=== PATIENT | female | born 1970 | race Caucasian/White ===

== ENCOUNTER 2018-05-31 12:04 | Emergency (ER) | payer OTHER, MEDICAID, SELFPAY ==
[2018-05-31 12:21] VITALS: BP 162/100; PULSE 83; RESP 13; TEMP 36.4; O2SAT 98
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
[2018-05-31] MEDS: hydrOXYzine 50 MG/ML INJ 25 MG IM (13:25)
[2018-05-31] MEDS: diazePAM 10 MG/2 ML SYRINGE 5 MG IM (13:25)
== END 2018-05-31 15:07 | disposition home or self-care (01) ==
PROVIDERS: Emergency Provider Internal Medicine; PCP Family Medicine
DX: F41.0 Panic disorder [episodic paroxysmal anxiety] (principal)
CPT/HCPCS: 96372; 99282; 99283; J3360; J3410

== ENCOUNTER → 2018-06-20 10:00 | Outpatient (CLI) | payer OTHER, MEDICAID, SELFPAY ==
[2018-06-20 10:06] LABS: RBC Urine None Seen (0-5/HPF)
[2018-06-20 11:04] LABS: Alanine Aminotransferase 41 IU/L (9-52); Albumin 4.3 g/dL (3.5-5.0); Albumin Globulin Ratio 1.3 (1.0-2.8); Alkaline Phosphatase 96 U/L (38-126); Aspartate Aminotransferase 27 IU/L (14-36); BUN Creatinine Ratio 26.7 (6-22); Bilirubin Total 0.5 mg/dL (0.2-1.3); Blood Urea Nitrogen 16 mg/dL (7-17); Calcium 9.8 mg/dL (8.4-10.2); Carbon Dioxide 28 mmol/L (22-32); Chloride 101 mmol/L (98-107); Cholesterol 168 mg/dL (140-199); Estimated Glomerular Filt Rate > 60.0 mL/min (>60); Globulin 3.3 g/dL (1.7-4.1); Glucose 176 mg/dL (70-100); HDL Cholesterol 32 mg/dL (40-60); HEMOLYSIS < 15 (0-50); LDL Cholesterol Calculated 95 mg/dL (<100); Potassium 4.1 mmol/L (3.4-5.1); Sodium 138 mmol/L (137-145); Total Protein 7.6 g/dL (6.3-8.2); Triglycerides 207 mg/dL (35-150)
[2018-06-20 11:21] LABS: Hematocrit 42.4 % (36-46); Hemoglobin 14.5 g/dL (12.0-16.0); Mean Corpuscular HGB Conc 34.1 % (30-36); Mean Corpuscular Hemoglobin 30.3 PG (26-34); Mean Corpuscular Volume 88.7 fL (80-100); Platelet Count 235 X10^3/uL (150-400); Red Blood Cell Count 4.78 X10^6/uL (4.0-5.2); Red Cell Distribution Width 12.8 % (11.6-14.8); White Blood Cell Count 8.3 X10^3/uL (4.5-11.0)
[2018-06-20 11:30] LABS: Appearance Urine UA CLEAR; Bilirubin Urine UA NEGATIVE (NEGATIVE); Color Urine UA YELLOW; Glucose Urine UA 1+ g/dL (Normal); Ketones Urine UA NEGATIVE (NEGATIVE); Leukocyte Esterase Urine UA NEGATIVE (NEGATIVE); Nitrite Urine UA Negative (Negative); Occult Blood Urine UA NEGATIVE (Negative); Protein Urine UA NEGATIVE (Negative); Urobilinogen Urine UA 0.2 E.U./dL (0.2)
[2018-06-20 11:31] LABS: TSH w/ Reflex to FT4 1.76 uIU/mL (0.47-4.68)
[2018-06-20 11:39] LABS: Hemoglobin A1C% w Est Avg Glu 9.8 % (4.0-6.0)
[2018-06-20 11:43] LABS: Bacteria Urine Moderate (10-30); Creatinine Urine Random 55.1 mg/dL; Squamous Epithelial Cell Urine 5-10 /HPF; WBC Urine 0-1/HPF (0-5/HPF)
[2018-06-20 11:49] LABS: Microalbumi Creatinin Ratio Ur 10.8 ug/mg CR (<30); Microalbumin Urine Random < 0.6 mg/dL (0-1.6)
[2018-06-20 11:57] LABS: Anisocytosis 1+; Neutrophils Absolute Manual 2075 /uL (3000-5900); Total Cells Counted 100
[2018-06-20 11:58] LABS: Hypochromasia 1+
== END ==
PROVIDERS: PCP Family Medicine; Visit Provider Nurse Practitioner Family
DX: E11.65 Type 2 diabetes mellitus with hyperglycemia (principal); E04.9 Nontoxic goiter, unspecified
CPT/HCPCS: 36415; 80053; 80061; 81001; 82043; 82570; 83036; 84443; 85025

== ENCOUNTER → 2018-11-25 15:06 | Outpatient (CLI) | payer OTHER, MEDICAID, SELFPAY ==
[2018-11-25 16:05] LABS: Hemoglobin A1C% w Est Avg Glu 11.4 % (4.0-6.0)
[2018-11-25 17:16] LABS: Blood Urea Nitrogen 25 mg/dL (7-17); Calcium 9.7 mg/dL (8.4-10.2); Carbon Dioxide 25 mmol/L (22-32); Chloride 99 mmol/L (98-107); Estimated Glomerular Filt Rate 59.7 mL/min (>60); Glucose 295 mg/dL (70-100); HEMOLYSIS < 15 (0-50); Potassium 4.7 mmol/L (3.4-5.1); Sodium 138 mmol/L (137-145)
== END ==
PROVIDERS: PCP Family Medicine; Visit Provider Family Medicine
DX: E11.65 Type 2 diabetes mellitus with hyperglycemia (principal); I10 Essential (primary) hypertension
CPT/HCPCS: 36415; 80048; 83036

== ENCOUNTER → 2018-12-27 13:20 | Outpatient (CLI) | payer OTHER, MEDICAID, SELFPAY ==
--- NOTE | 2018-12-27 14:56 | DIET.PN ---
DIABETES Nutrition Initial Assessment:? ASSESS:???48 yof? referred for type 2 diabetes. Pt with long standing history of diabetes (Nov). States she was given some diabetes education at that time, but her hemoglobin a1c and blood glucose readings have continued to climb steadily. Reports checking pre-prandial glucose 3x/day. Was recently put on SS humalog after discontinuing glipizide. She does not count or adjust mealtime insulin to reflect dietary intake, rather adjust insulin based on pre-prandial BG reading. Admits to eating large portions of dairy, fruit, and bread. She lives in a house of 8 where she cares for her father, boyfriend, 4 children, and 2 grandchildren. Reports some challenges in sticking with dietary plans with so many to prepare for. Currently works for an [employer] where she consumes most of her meals and snacks. ? LABS: Per pt report:? A1c: 11.4 (11/25/18) Previously 9.6 prior to adding mealtime insulin FB-350 Pre-prandial: 250-280 ? MEDS:?? metformin: 1000mg BID glargine: 55u am/pm lispro: 8-16 u SS mealtime ? DIET: Per 24-hour recall:? Weight: 217# Ht: 69 BMI: 32 obese? Exercise:? none at this time. Walks when weather permits NUTRITION DX 1. Altered Nutrition related labs related to impaired glucose metabolism, lack of previous exposure to accurate nutrition information as evidenced by pt report, dx of diabetes, previous diet high in refined carbohydrates.? INTERVENTION(s): 1. Discussed pathophysiology of diabetes. Reviewed A1c and its correlation to blood glucose numbers. Discussed recommended BG ranges. 2. Discussed importance of self-monitoring, how often, and when to check. 3. Reviewed hyper/hypoglycemia and treatment. 4. Reviewed safe disposal of equipment (strip/lancets/insulin needles). 5. Discussed the effect of carbohydrates/protein/fat on blood sugar control.? Stressed importance of consistent carbohydrate intake at each meal and provided instructions for recommended servings/portions of carbohydrates/protein per meal. Provided pt with educational material. 6. Reviewed carbohydrate counting and measuring carbohydrate content via servings sizes and reading nutrition labels.? Provided handouts.?? 7. Discussed the difference between simple versus complex carbohydrates and the effect of fiber on blood sugar control.? Discussed various methods to increase fiber content in diet. 8. Stressed importance of meal timing and not going >4-5 hours between meals. Encouraged adding protein to evening snack to support glucose control overnight. Patient agreeable. 9. Discussed healthy weight loss goals of 1-2lbs per week through diet and exercise.? Pt agreeable to walking daily. SMART goals: 1. Pt goal of a1c of 9.0 at follow up labs through dietary changes and increased physical activity. 2. Pt will keep a food record and monitor blood glucose 4x/day to evaluate pattern management. 3. Pt will begin walking daily for a minimum of 10 minutes 5 days/week. MONITOR/EVALUATE: Anticipate good compliance.?Nutrition follow-up scheduled for 1 month to review BG log, food record, weight, and discuss fat/protein recommendations, dining out with diabetes, sugar substitutes, alcohol, and grocery shopping guidelines.
== END ==
PROVIDERS: PCP Family Medicine; Visit Provider Family Medicine
DX: E11.9 Type 2 diabetes mellitus without complications (principal)
CPT/HCPCS: 97802

== ENCOUNTER → 2018-12-28 16:06 | Outpatient (CLI) | payer OTHER, MEDICAID, SELFPAY ==
--- NOTE | 2018-12-28 16:09 | DI.RAD.S_ITS ---
PROCEDURE: XR KNEE RT 3V INDICATIONS: swelling and pain TECHNIQUE: 3 views of the knee were acquired. COMPARISON: None. FINDINGS: Bones: No fractures or dislocations. No suspicious bony lesions. Soft tissues: No joint effusion. No suspicious soft tissue calcifications. IMPRESSION: No acute radiographic findings. If there is continued pain, followup exam or additional imaging such as MRI or CT could be performed for further assessment. Dictated by: Aydee Smith M.D. on 12/28/2018 at 17:00 Approved by: Aydee Smith M.D. on 12/28/2018 at 17:01
--- NOTE | 2018-12-28 16:09 | DI.RAD.S_ITS ---
PROCEDURE: XR FINGER RT MIN 2V INDICATIONS: swelling and pain 3rd finger TECHNIQUE: AP hand, 2 views of the third right finger(s) acquired. COMPARISON: None. FINDINGS: Bones: No fractures or dislocations. No suspicious bony lesions. Soft tissues: No suspicious soft tissue calcifications. IMPRESSION: No acute radiographic findings. Dictated by: Aydee Smith M.D. on 12/28/2018 at 17:01 Approved by: Aydee Smith M.D. on 12/28/2018 at 17:01
== END ==
PROVIDERS: PCP Family Medicine; Visit Provider Family Medicine
DX: M25.561 Pain in right knee (principal); M79.644 Pain in right finger(s)
CPT/HCPCS: 73140; 73562

== ENCOUNTER 2019-01-22 19:51 | Emergency (ER) | payer OTHER, MEDICAID, SELFPAY ==
[2019-01-22 19:55] VITALS: BP 134/86; PULSE 83; RESP 18; TEMP 36.5; O2SAT 97; BMI 32.9
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
[2019-01-22] MEDS: CYCLOBENZAPRINE 10 MG TABLET PO (21:05)
[2019-01-22] MEDS: TRAMADOL 50 MG TABLET PO (21:05)
[2019-01-22] MEDS: KETOROLAC 60 MG/2 ML VIAL IM (21:05)
[2019-01-22 21:41] VITALS: BP 126/93; PULSE 75; RESP 16; O2SAT 97
[2019-01-22] MEDS: TRAMADOL 50 MG PREPACK 1 BOTTLE MISC (21:56)
[2019-01-22] MEDS: CYCLOBENZAPRINE 10 MG PREPACK 1 BOTTLE MISC (21:57)
== END 2019-01-22 21:59 | disposition home or self-care (01) ==
PROVIDERS: Emergency Provider Internal Medicine; PCP Family Medicine
DX: M53.3 Sacrococcygeal disorders, not elsewhere classified (principal); S39.012A Strain of muscle, fascia and tendon of lower back, initial encounter
CPT/HCPCS: 99282; 99283; J1885

== ENCOUNTER 2019-02-15 22:38 | Emergency (ER) | payer OTHER, MEDICAID, SELFPAY ==
[2019-02-15 23:12] VITALS: BP 140/95; PULSE 90; RESP 18; TEMP 36.5; O2SAT 98; BMI 31.4
--- NOTE | 2019-02-15 23:15 | DI.RAD.S_ITS ---
PROCEDURE: XR ELBOW LT MIN 3V INDICATIONS: fell on left arm TECHNIQUE: 3 views of the elbow were acquired. COMPARISON: None. FINDINGS: Bones: No fractures or dislocations. No suspicious bony lesions. Spurring at the medial and lateral epicondyles. Soft tissues: No elbow joint effusion. No suspicious soft tissue calcifications. IMPRESSION: No fracture or dislocation. No significant discrepancy with the ER preliminary interpretation. Dictated by: Neha Lind M.D. on 02/16/2019 at 8:12 Approved by: Neha Lind M.D. on 02/16/2019 at 8:13
--- NOTE | 2019-02-15 23:16 | DI.RAD.S_ITS ---
PROCEDURE: XR FOREARM RT 2V INDICATIONS: Ground level fall in garage injurying left arm TECHNIQUE: 2 views of the forearm were acquired. COMPARISON: None. FINDINGS: Bones: No fractures or dislocations. No suspicious bony lesions. Wraist is partially obscured by metallic artifact. Soft tissues: No suspicious soft tissue calcifications or masses. IMPRESSION: No fracture or dislocation. No significant discrepancy with the ER preliminary interpretation. Dictated by: Neha Lind M.D. on 02/16/2019 at 8:11 Approved by: Neha Lind M.D. on 02/16/2019 at 8:12
--- NOTE | 2019-02-15 23:40 | ED_ITS ---
HPI - Extremity Injury (Upper) General Chief Complaint: Extremity Injury, Upper Stated Complaint: LEFT SIDE PAIN S/P FALL Time Seen by Provider: 02/15/19 23:27 Source: patient Mode of arrival: ambulatory Limitations: no limitations History of Present Illness HPI narrative: Patient is a 49-year-old female here for evaluation of an injury to her left forearm. Patient states that she slipped on a step and landed on her left arm prior to arrival. She did not hit her head. Has pain in her left forearm and left elbow. No prior injury. Has not tried anything for the symptoms prior to arrival. Related Data Home Medications Medication Instructions Recorded Confirmed omeprazole 20 mg capsule,delayed 20 mg PO DAILY 10/27/18 02/03/19 release Previous Rx's Medication Instructions Recorded True Brand Glucometer #1 ea 06/21/18 atorvastatin 40 mg tablet 40 mg PO QPM #90 tab 07/13/18 lisinopril 20 mg tablet 20 mg PO QPM #30 tab 10/31/18 sertraline 100 mg tablet 100 mg PO DAILY #30 tab 10/31/18 insulin glargine (U-100) 100 See Rx Instructions SUB-Q BID #15 11/21/18 unit/mL (3 mL) subcutaneous pen ml celecoxib 200 mg capsule 200 mg PO DAILY #30 cap 12/12/18 metformin 1,000 mg tablet 1,000 mg PO BID #180 tab 12/28/18 insulin lispro (U- 100) 100 16 unit SUBCUT TID #10 ml 01/26/19 unit/mL subcutaneous solution insulin syringe U-100 with needle #300 each 01/26/19 0.5 mL 30 gauge x 04/06 Allergies Allergy/AdvReac Type Severity Reaction Status Date / Time promethazine [From PHENERGAN] Allergy Severe HIVES Verified 02/03/19 14:11 Review of Systems Constitutional Denies fever(s) and Denies weakness ENT Ears, Nose, Mouth, and Throat: Denies disequilibrium Musculoskeletal Denies tingling Comments: Left elbow and left forearm pain Integumentary/Breasts Denies rash Neurologic Denies tingling, Denies paresthesias, Denies disequilibrium and Denies weakness Hematologic/Lymphatic Denies easy bleeding and Denies easy bruising Allergic/Immunologic Denies urticaria [facility] Medical History Anxiety disorder (Chronic) Chronic back pain (Chronic) Diabetes (Chronic) HTN (hypertension) (Chronic) Hyperlipidemia (Chronic) Obesity (Chronic) Tibial plateau fracture (Resolved) Surgical History History of carpal tunnel repair (Resolved 11/06/15) History of liver biopsy (Resolved 2000) History of tonsillectomy (Resolved 1988) Status post tubal ligation (Resolved 1999) Status post vaginal hysterectomy (Resolved 2004) Family History Father Diabetes mellitus Mother Diabetes mellitus Hypothyroid Grandfather COPD (chronic obstructive pulmonary disease) Grandmother CAD (coronary artery disease) [place] (myocardial infarction) Social History Smoking Status: Former smoker alcohol intake: never substance use type: does not use Family History Father Diabetes mellitus Mother Diabetes mellitus Hypothyroid Grandfather COPD (chronic obstructive pulmonary disease) Grandmother CAD (coronary artery disease) MD (myocardial infarction) Social History Smoking Status: Former smoker alcohol intake: never substance use type: does not use Exam Initial Vital Signs Initial Vital Signs: Vital Signs Temperature 97.7 F 02/15/19 23:12 Pulse Rate 90 02/15/19 23:12 Respiratory Rate 18 02/15/19 23:12 Blood Pressure 140/95 H 02/15/19 23:12 Pulse Oximetry 98 02/15/19 23:12 Const General: cooperative, comfortable, well developed, well groomed and No acute distress Orientation: alert, awake and oriented x3 HENMT Head: normal to inspection and normocephalic Resp Effort & Inspection: normal respiratory effort Cardio Rate: regular rate Pulses: radial pulses present on the left Skin Lesions: no lesions Rashes: no rashes Neuro General: alert, awake and oriented x3 Extrem Other: Left shoulder unremarkable, left elbow unremarkable, tenderness to palpation along the forearm proximally of the left arm. Left wrist unremarkable. Left hand unremarkable. Psych Appearance: grossly normal and well kempt Course Orders Ordered: ED Orders 02/15/19 23:15 XR elbow LT min 3V Stat 02/15/19 23:16 XR forearm LT 2V Stat Vital Signs - 8 hr 02/15/19 23:12 02/16/19 00:00 Temperature 97.7 F Pulse Rate 90 96 H Respiratory Rate 18 Blood Pressure 140/95 H 127/98 H Pulse Oximetry 98 MDM - Extremity Injury (Upper) Imaging Data Left elbow x-ray: Attestation: I personally reviewed and interpreted this imaging study as follows: My impression: No fractures or dislocations Left forearm x-ray: Attestation: I personally reviewed and interpreted this imaging study as follows: My impression: No fractures or dislocations MDM Narrative Medical decision making narrative: Neurovascularly intact, no fractures on the x-ray, no breaks in the skin, did not hit her head, not on blood thinners, no other reported injuries, hold on further workup for now. Patient given care and return instructions. She expressed understanding and agreement with plan. Discharge Plan Departure Patient Disposition: Home Clinical Impression: Contusion of arm, left Qualifiers: Encounter type: initial encounter Qualified Code(s): S40.022A - Contusion of left upper arm, initial encounter Discharge Date/Time: 02/16/19 00:00 Interventions: ED Discharge Assessment Last Done: 02/16/19 00:00 Instructions: DI for Contusion Activity Restrictions/Additional Instructions: There were no fractures on the x-ray. Use Tylenol/ibuprofen for any discomfort. Ice the area. Return to the emergency department for any new or worsening symptoms. Prescriptions: No Action True Brand Glucometer Qty: 1 RF: 0 atorvastatin 40 mg tablet 40 mg PO QPM Qty: 90 RF: 3 sertraline 100 mg tablet 100 mg PO DAILY Qty: 30 RF: 2 lisinopril 20 mg tablet 20 mg PO QPM Qty: 30 RF: 2 insulin glargine 100 unit/mL (3 mL) insulin pen See Rx Instructions Sub-Q BID Qty: 15 RF: 5 celecoxib [Celebrex] 200 mg capsule 200 mg PO DAILY Qty: 30 RF: 0 insulin lispro 100 unit/mL solution 16 unit SUBCUT TID Qty: 10 RF: 1 insulin syringe-needle U-100 [Advocate Syringes] 0.5 mL 30 gauge x 5/16 syringe .ROUTE .MEDSUPPLY Qty: 300 RF: 0 omeprazole 20 mg capsule,delayed release(DR/EC) 20 mg PO DAILY RF: 0 metformin 1,000 mg tablet 1,000 mg PO BID Qty: 180 RF: 3 Referrals: Merari Yen DO [Primary Care Provider] -
[2019-02-16] VITALS: BP 127/98; PULSE 96
== END 2019-02-16 | disposition home or self-care (01) ==
PROVIDERS: Emergency Provider Emergency Medicine; PCP Family Medicine
DX: S40.022A Contusion of left upper arm, initial encounter (principal); W19.XXXA Unspecified fall, initial encounter
CPT/HCPCS: 73080; 73090; 99282; 99283

== ENCOUNTER 2019-02-20 21:39 | Emergency (ER) | payer OTHER, MEDICAID, SELFPAY ==
[2019-02-20 21:44] VITALS: BP 125/82; PULSE 75; RESP 17; TEMP 36.9; O2SAT 95; BMI 32.9
[2019-02-20 22:43] VITALS: BP 131/85; PULSE 78; RESP 16; O2SAT 94
--- NOTE | 2019-02-20 23:05 | DI.CT.S_ITS ---
PROCEDURE: CT HEAD/BRAIN WO CON INDICATIONS: headache with blurred vision TECHNIQUE: Noncontrast 4.5 mm thick angled axial sections acquired from the foramen magnum to the vertex, with coronal and sagittal reformats. For radiation dose reduction, the following was used: automated exposure control, adjustment of mA and/or kV according to patient size. COMPARISON: [facility], CT, CT ANGIO HEAD AND NECK, 02/21/2019, 0:21. FINDINGS: Image quality: Excellent. CSF spaces: Basal cisterns are patent. No extra-axial fluid collections. The ventricles are prominent in size. There is effacement of the posterior horn the right lateral ventricle. Brain: There is a large hypodense mass in the right pedicle area with vasogenic edema causing effacement of the posterior horn the right lateral ventricle. The mass measures approximately 7.2 cm AP x 3.4 cm transverse x 3.5 cm cephalocaudal . There is small subtle hypodensity in the right temporal lobe. No intracranial bleed. There is moderate cerebral volume loss. An old lacunar infarct or dilated perivascular space is noted in the left basal ganglia. There are periventricular and deep white matter chronic small vessel ischemic changes. Skull and face: Calvarium and visualized facial bones appear intact, without suspicious lesions. Sinuses: Visualized sinuses and mastoids are clear. IMPRESSION: 1. A large hypodense mass in the right parietal lobe and a possible small mass in the right temporal lobe. There is vasogenic edema and mass effect, causing effacement of the posterior horn the right lateral ventricle. Differential diagnoses include primary [employer] neoplasm versus metastatic disease. MRI with and without contrast is recommended for further evaluation. 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 Dictated by: Neha Lind M.D. on 02/21/2019 at 7:15 Approved by: Neha Lind M.D. on 02/21/2019 at 9:41
[2019-02-20 23:49] VITALS: BP 120/81; PULSE 92; RESP 16; O2SAT 99
--- NOTE | 2019-02-20 23:59 | ED.HA ---
HPI - Headache General Chief Complaint: Headache Stated Complaint: HEADACHE ALL DAY LOOSING VISION OF LEFT EYE Time Seen by Provider: 02/20/19 22:27 Source: patient Mode of arrival: ambulatory Limitations: no limitations History of Present Illness HPI Narrative: 49-year-old female, former smoker with history of hypertension and diabetes presents with 2 weeks of headache and left-sided visual change. She has had trouble with the peripheral vision of her left eye and denies any injury leading up to this. She had no head or neck injuries precipitating this, however she has had a few falls as a consequence of her vision change. Her headache is worse with bright lights and loud noise. She denies any history of the same. She denies other neurologic problems such as trouble with ambulation or ataxia of her extremities, she does however complain of some tingling in her right shoulder. She has no chest pain or shortness of breath MD Complaint: headache Onset (ago): week(s) Onset description: gradual Location: left Severity: moderate Quality: aching Relieving factors: nothing and dark room Exacerbating factors: exertion, sitting/standing and light Context: occurred at rest Treatments prior to arrival: none Related Data Home Medications Medication Instructions Recorded Confirmed omeprazole 20 mg capsule,delayed 20 mg PO DAILY 10/27/18 02/03/19 release Previous Rx's Medication Instructions Recorded True Brand Glucometer #1 ea 06/21/18 atorvastatin 40 mg tablet 40 mg PO QPM #90 tab 07/13/18 lisinopril 20 mg tablet 20 mg PO QPM #30 tab 10/31/18 sertraline 100 mg tablet 100 mg PO DAILY #30 tab 10/31/18 insulin glargine (U-100) 100 See Rx Instructions SUB-Q BID #15 11/21/18 unit/mL (3 mL) subcutaneous pen ml celecoxib 200 mg capsule 200 mg PO DAILY #30 cap 12/12/18 metformin 1,000 mg tablet 1,000 mg PO BID #180 tab 12/28/18 insulin lispro (U- 100) 100 16 unit SUBCUT TID #10 ml 01/26/19 unit/mL subcutaneous solution insulin syringe U-100 with needle #300 each 01/26/19 0.5 mL 30 gauge x 04/06 Allergies Allergy/AdvReac Type Severity Reaction Status Date / Time promethazine [From PHENERGAN] Allergy Severe HIVES Verified 02/03/19 14:11 Review of Systems Review of Systems ROS Unobtainable: All systems reviewed & are unremarkable except as noted in HPI and below Constitutional Denies chills, Denies fever(s), Reports headache(s), Denies lethargy and Denies weakness Eyes Denies change in vision, Denies eye discharge, Denies irritation and Reports loss of vision ENT Ears, Nose, Mouth, and Throat: Denies change in voice, Reports headache(s), Denies neck pain and Denies sore throat Cardiovascular Denies chest pain, Denies irregular heart rhythm, Denies lightheadedness, Denies palpitations, Denies dyspnea, Denies dyspnea on exertion and Denies orthopnea Respiratory Denies cough, Denies dyspnea, Denies dyspnea on exertion and Denies wheezing Gastrointestinal Gastrointestinal: Denies abdominal pain, Denies change in bowel habits, Denies diarrhea, Denies nausea and Denies vomiting Genitourinary Denies hematuria, Denies flank pain, Denies urinary incontinence and Denies urinary urgency Musculoskeletal Denies neck pain Integumentary/Breasts Denies pruritus, Denies erythema, Denies rash and Denies wounds Neurologic Denies confusion, Reports headache(s), Reports loss of vision and Denies weakness Psychiatric Denies anxiety, Denies confusion, Denies depression, Denies homicidal ideation and Denies suicidal ideation Endocrine Denies palpitations Hematologic/Lymphatic Denies easy bruising Allergic/Immunologic Denies wheezing PFSH Medical History Anxiety disorder (Chronic) Chronic back pain (Chronic) Diabetes (Chronic) HTN (hypertension) (Chronic) Hyperlipidemia (Chronic) Obesity (Chronic) Tibial plateau fracture (Resolved) Surgical History History of carpal tunnel repair (Resolved 11/06/15) History of liver biopsy (Resolved 2000) History of tonsillectomy (Resolved 1988) Status post tubal ligation (Resolved 1999) Status post vaginal hysterectomy (Resolved 2004) Family History Father Diabetes mellitus Mother Diabetes mellitus Hypothyroid Grandfather COPD (chronic obstructive pulmonary disease) Grandmother CAD (coronary artery disease) [place] (myocardial infarction) Social History Smoking Status: Former smoker alcohol intake: never substance use type: does not use Family History Father Diabetes mellitus Mother Diabetes mellitus Hypothyroid Grandfather COPD (chronic obstructive pulmonary disease) Grandmother CAD (coronary artery disease) [place] (myocardial infarction) Social History Smoking Status: Former smoker alcohol intake: never substance use type: does not use Exam Narrative Exam Narrative: GENERAL: 49-year-old female appears stated age, clearly uncomfortable, resting in a dark room squinting with her left eye HEAD: Atraumatic. Normocephalic. No temporal or scalp tenderness. EYES: Visual acuity noted in nursing chart Pupils equal round and reactive. Extraocular motions intact. No scleral icterus. No injection or drainage. Ocular US unremarkable. No significant fundoscopic findings. Tonopen notes OS - 30mmhg, OD 25 ENT: Nose without bleeding, purulent drainage or septal hematoma. Throat without erythema, tonsillar hypertrophy or exudate. Uvula midline. Airway patent. NECK: Trachea midline. No JVD or lymphadenopathy. Supple, nontender, no meningeal signs. CARDIOVASCULAR: Regular rate and rhythm without murmurs, gallops, or rubs. RESPIRATORY: Clear to auscultation. Breath sounds equal bilaterally. No wheezes, rales, or rhonchi. GASTROINTESTINAL: Abdomen soft, non-tender, nondistended. No hepato-splenomegaly, or palpable masses. No guarding. EXTREMITIES: No clubbing, cyanosis, or edema. No joint tenderness, effusion, or edema noted. BACK: Nontender without deformity or crepitance. No flank tenderness. NEURO: AOx3. SKIN: No rash or erythema. Initial Vital Signs Initial Vital Signs: Vital Signs Temperature 98.5 F 02/20/19 21:44 Pulse Rate 75 02/20/19 21:44 Respiratory Rate 17 02/20/19 21:44 Blood Pressure 125/82 02/20/19 21:44 Pulse Oximetry 95 02/20/19 21:44 Course Orders Ordered: ED Orders 02/20/19 23:05 CT head/brain wo con Stat 02/20/19 23:46 Basic Metabolic Panel Stat C-Reactive Protein Quant Stat Complete Blood Count AUTO DIFF Stat Erythrocyte Sedimentation Rate Stat 02/21/19 00:15 CT angio head and neck Stat Discontinued Medications Dexamethasone (Decadron) 10 mg IV NOW ONE Stop: 02/21/19 01:00 Last Admin: 02/21/19 01:03 Dose: 10 mg Levetiracetam 1,000 mg/ Sodium (Chloride) 110 mls @ 440 mls/hr IV NOW ONE Stop: 02/21/19 01:22 Last Infusion: 02/21/19 02:34 Dose: 0 mls/hr Admin: 02/21/19 01:58 Dose: 440 mls/hr Consultations Consultation #1: upon receipt of CT findings, call placed to radiation oncology at [facility] after discussion of case they make strong recommendation to consult with neurosurgery as the size and severity of symptoms make them question whether resection is the best case call to [facility] and they are happy to be involved in care, and actually recommend transfer to the ED, which is the standard approach for newly discovered brain tumors there. Dr. Early is happy to accept. We discussed carlos garcia which she is happy with. Additionally, I stated I did not do all of the chest/abd/pelvic CTs to look for possible other masses as they will be performing those studies there. ALS Urgent transport called for ability to keep on monitor and intervene in the unlikely event of seizure Vital Signs - 8 hr 02/20/19 21:44 02/20/19 22:43 02/20/19 23:49 Temperature 98.5 F Pulse Rate 75 78 92 H Respiratory Rate 17 16 16 Blood Pressure 125/82 Blood Pressure [Left Arm] 120/81 Blood Pressure [Right Arm] 131/85 Pulse Oximetry 95 94 99 02/21/19 01:10 02/21/19 02:30 02/21/19 03:29 Temperature Pulse Rate 79 76 75 Respiratory Rate 18 16 16 Blood Pressure 123/83 Blood Pressure [Left Arm] 129/82 132/94 H Blood Pressure [Right Arm] Pulse Oximetry 94 91 91 MDM - Headache Lab Data Result diagrams: 02/20/19 23:46 02/20/19 23:46 Lab Results 02/20/19 02/20/19 Range/Units 23:46 23:46 WBC 9.0 (4.5-11.0) X10^3/uL RBC 4.89 (4.0-5.2) X10^6/uL Hgb 14.5 (12.0-16.0) g/dL Hct 42.9 (36-46) % MCV 87.6 (80-100) fL MCH 29.7 (26-34) PG MCHC 33.9 (30-36) % RDW 13.3 (11.6-14.8) % Plt Count 252 (150-400) X10^3/uL Neut % (Auto) 37.8 L (50-75) % Lymph % (Auto) 49.8 H (25-40) % [place] % (Auto) 9.6 (3-14) % Eos % (Auto) 1.9 L (2-4) % Baso % (Auto) 0.9 (0-2) % Neut # (Auto) 3400 (6126-0874) /uL Lymph # (Auto) 4500 (4215-9333) /uL [place] # (Auto) 900 (0-900) /uL Eos # (Auto) 200 (0-450) /uL Baso # (Auto) 100 (0-100) /uL ESR 40 H (0-20) MM/HR Sodium 136 L (137-145) mmol/L Potassium 3.7 (3.4-5.1) mmol/L Chloride 97 L (98-107) mmol/L Carbon Dioxide 30 (22-32) mmol/L BUN 21 H (7-17) mg/dL Creatinine 0.70 (0.52-1.04) mg/dL Estimated GFR > 60.0 (>60) mL/min BUN/Creatinine Ratio 30.0 H (6-22) Glucose 464 H (70-100) mg/dL Calcium 9.7 (8.4-10.2) mg/dL C-Reactive Protein < 0.5 (<1.0) mg/dL Imaging Data CT scan - head: Radiologist's impression: Two mass lesions in the brain as described, worrisome for neoplasm, most likely metastatic disease. Infiltrative low-attenuation lesion in the right parietal lobe with associated moderate vasogenic edema inclusive of the edema the lesion measures up to 9 cm. Low-attenuation mass lesion suspected in anterior right temporal lobe also with vasogenic edema and inclusive of edema measuring up to 2.3 cm Critical Care Time Critical Care Time: Yes Total Critical Care Time: 30 Attestation: The high probability of a clinically significant, sudden or life threatening deterioration of the [neurovascular] system(s) required my full and direct attention, intervention and personal management. The aggregate critical care time was [30] minutes. This time is in addition to time spent performing reported procedures but includes the following: [x] Data Review and interpretation [x] Patient assessment and monitoring of vital signs [x] Documentation [x] Medication orders and management Discharge Plan Departure Patient Disposition: [facility] Clinical Impression: Brain metastases Clinical Impression: (Ruled Out): Hypertension Discharge Date/Time: 02/21/19 03:31 Interventions: ED Discharge Assessment Last Done: 02/21/19 03:29 Prescriptions: No Action True Brand Glucometer Qty: 1 RF: 0 atorvastatin 40 mg tablet 40 mg PO QPM Qty: 90 RF: 3 sertraline 100 mg tablet 100 mg PO DAILY Qty: 30 RF: 2 lisinopril 20 mg tablet 20 mg PO QPM Qty: 30 RF: 2 insulin glargine 100 unit/mL (3 mL) insulin pen See Rx Instructions Sub-Q BID Qty: 15 RF: 5 celecoxib [Celebrex] 200 mg capsule 200 mg PO DAILY Qty: 30 RF: 0 insulin lispro 100 unit/mL solution 16 unit SUBCUT TID Qty: 10 RF: 1 insulin syringe-needle U-100 [Advocate Syringes] 0.5 mL 30 gauge x 5/16 syringe .ROUTE .MEDSUPPLY Qty: 300 RF: 0 omeprazole 20 mg capsule,delayed release(DR/EC) 20 mg PO DAILY RF: 0 metformin 1,000 mg tablet 1,000 mg PO BID Qty: 180 RF: 3 Referrals: Merari Yen DO [Primary Care Provider] -
[2019-02-21 00:02] LABS: Blood Urea Nitrogen 21 mg/dL (7-17); Calcium 9.7 mg/dL (8.4-10.2); Carbon Dioxide 30 mmol/L (22-32); Chloride 97 mmol/L (98-107); Estimated Glomerular Filt Rate > 60.0 mL/min (>60); Glucose 464 mg/dL (70-100); HEMOLYSIS < 15 (0-50); Potassium 3.7 mmol/L (3.4-5.1); Sodium 136 mmol/L (137-145)
--- NOTE | 2019-02-21 00:03 | ED_ITS ---
HPI - Headache General Chief Complaint: Headache Stated Complaint: HEADACHE ALL DAY LOOSING VISION OF LEFT EYE Time Seen by Provider: 02/20/19 22:27 Source: patient Mode of arrival: ambulatory Limitations: no limitations History of Present Illness HPI Narrative: 49-year-old female, former smoker with history of hypertension and diabetes presents with 2 weeks of headache and left-sided visual change. She has had trouble with the peripheral vision of her left eye and denies any injury leading up to this. She had no head or neck injuries precipitating this, however she has had a few falls as a consequence of her vision change. Her headache is worse with bright lights and loud noise. She denies any history of the same. She denies other neurologic problems such as trouble with ambulation or ataxia of her extremities, she does however complain of some tingling in her right shoulder. She has no chest pain or shortness of breath MD Complaint: headache Onset (ago): week(s) Onset description: gradual Location: left Severity: moderate Quality: aching Relieving factors: nothing and dark room Exacerbating factors: exertion, sitting/standing and light Context: occurred at rest Treatments prior to arrival: none Related Data Home Medications Medication Instructions Recorded Confirmed omeprazole 20 mg capsule,delayed 20 mg PO DAILY 10/27/18 02/03/19 release Previous Rx's Medication Instructions Recorded True Brand Glucometer #1 ea 06/21/18 atorvastatin 40 mg tablet 40 mg PO QPM #90 tab 07/13/18 lisinopril 20 mg tablet 20 mg PO QPM #30 tab 10/31/18 sertraline 100 mg tablet 100 mg PO DAILY #30 tab 10/31/18 insulin glargine (U-100) 100 See Rx Instructions SUB-Q BID #15 11/21/18 unit/mL (3 mL) subcutaneous pen ml celecoxib 200 mg capsule 200 mg PO DAILY #30 cap 12/12/18 metformin 1,000 mg tablet 1,000 mg PO BID #180 tab 12/28/18 insulin lispro (U- 100) 100 16 unit SUBCUT TID #10 ml 01/26/19 unit/mL subcutaneous solution insulin syringe U-100 with needle #300 each 01/26/19 0.5 mL 30 gauge x 04/06 Allergies Allergy/AdvReac Type Severity Reaction Status Date / Time promethazine [From PHENERGAN] Allergy Severe HIVES Verified 02/03/19 14:11 Review of Systems Review of Systems ROS Unobtainable: All systems reviewed & are unremarkable except as noted in HPI and below Constitutional Denies chills, Denies fever(s), Reports headache(s), Denies lethargy and Denies weakness Eyes Denies change in vision, Denies eye discharge, Denies irritation and Reports loss of vision ENT Ears, Nose, Mouth, and Throat: Denies change in voice, Reports headache(s), Denies neck pain and Denies sore throat Cardiovascular Denies chest pain, Denies irregular heart rhythm, Denies lightheadedness, Denies palpitations, Denies dyspnea, Denies dyspnea on exertion and Denies orthopnea Respiratory Denies cough, Denies dyspnea, Denies dyspnea on exertion and Denies wheezing Gastrointestinal Gastrointestinal: Denies abdominal pain, Denies change in bowel habits, Denies diarrhea, Denies nausea and Denies vomiting Genitourinary Denies hematuria, Denies flank pain, Denies urinary incontinence and Denies urinary urgency Musculoskeletal Denies neck pain Integumentary/Breasts Denies pruritus, Denies erythema, Denies rash and Denies wounds Neurologic Denies confusion, Reports headache(s), Reports loss of vision and Denies weak ness Psychiatric Denies anxiety, Denies confusion, Denies depression, Denies homicidal ideation and Denies suicidal ideation Endocrine Denies palpitations Hematologic/Lymphatic Denies easy bruising Allergic/Immunologic Denies wheezing [facility] Medical History Anxiety disorder (Chronic) Chronic back pain (Chronic) Diabetes (Chronic) HTN (hypertension) (Chronic) Hyperlipidemia (Chronic) Obesity (Chronic) Tibial plateau fracture (Resolved) Surgical History History of carpal tunnel repair (Resolved 11/06/15) History of liver biopsy (Resolved 2000) History of tonsillectomy (Resolved 1988) Status post tubal ligation (Resolved 1999) Status post vaginal hysterectomy (Resolved 2004) Family History Father Diabetes mellitus Mother Diabetes mellitus Hypothyroid Grandfather COPD (chronic obstructive pulmonary disease) Grandmother CAD (coronary artery disease) [place] (myocardial infarction) Social History Smoking Status: Former smoker alcohol intake: never substance use type: does not use Family History Father Diabetes mellitus Mother Diabetes mellitus Hypothyroid Grandfather COPD (chronic obstructive pulmonary disease) Grandmother CAD (coronary artery disease) [place] (myocardial infarction) Social History Smoking Status: Former smoker alcohol intake: never substance use type: does not use Exam Narrative Exam Narrative: GENERAL: 49-year-old female appears stated age, clearly uncomfortable, resting in a dark room squinting with her left eye HEAD: Atraumatic. Normocephalic. No temporal or scalp tenderness. EYES: Visual acuity noted in nursing chart Pupils equal round and reactive. Extraocular motions intact. No scleral icterus. No injection or drainage. Ocular US unremarkable. No significant fundoscopic findings. Tonopen notes OS - 30mmhg, OD 25 ENT: Nose without bleeding, purulent drainage or septal hematoma. Throat without erythema, tonsillar hypertrophy or exudate. Uvula midline. Airway patent. NECK: Trachea midline. No JVD or lymphadenopathy. Supple, nontender, no meningeal signs. CARDIOVASCULAR: Regular rate and rhythm without murmurs, gallops, or rubs. RESPIRATORY: Clear to auscultation. Breath sounds equal bilaterally. No wheezes, rales, or rhonchi. GASTROINTESTINAL: Abdomen soft, non-tender, nondistended. No hepato- splenomegaly, or palpable masses. No guarding. EXTREMITIES: No clubbing, cyanosis, or edema. No joint tenderness, effusion, or edema noted. BACK: Nontender without deformity or crepitance. No flank tenderness. NEURO: AOx3. SKIN: No rash or erythema. Initial Vital Signs Initial Vital Signs: Vital Signs Temperature 98.5 F 02/20/19 21:44 Pulse Rate 75 02/20/19 21:44 Respiratory Rate 17 02/20/19 21:44 Blood Pressure 125/82 02/20/19 21:44 Pulse Oximetry 95 02/20/19 21:44 Course Orders Ordered: ED Orders 02/20/19 23:05 CT head/brain wo con Stat 02/20/19 23:46 Basic Metabolic Panel Stat C-Reactive Protein Quant Stat Complete Blood Count AUTO DIFF Stat Erythrocyte Sedimentation Rate Stat 02/21/19 00:15 CT angio head and neck Stat Discontinued Medications Dexamethasone (Decadron) 10 mg IV NOW ONE Stop: 02/21/19 01:00 Last Admin: 02/21/19 01:03 Dose: 10 mg Levetiracetam 1,000 mg/ Sodium (Chloride) 110 mls @ 440 mls/hr IV NOW ONE Stop: 02/21/19 01:22 Last Infusion: 02/21/19 02:34 Dose: 0 mls/hr Admin: 02/21/19 01:58 Dose: 440 mls/hr Consultations Consultation #1: upon receipt of CT findings, call placed to radiation oncology at [facility] after discussion of case they make strong recommendation to consult with neurosurgery as the size and severity of symptoms make them question whether resection is the best case call to [facility] and they are happy to be involved in care, and actually recommend transfer to the ED, which is the standard approach for newly discovered brain tumors there. Dr. Early is happy to accept. We discussed carlos garcia which she is happy with. Additionally, I stated I did not do all of the chest/abd/pelvic CTs to look for possible other masses as they will be perfor [place] those studies there. ALS Urgent transport called for ability to keep on monitor and intervene in the unlikely event of seizure Vital Signs - 8 hr 02/20/19 21:44 02/20/19 22:43 02/20/19 23:49 Temperature 98.5 F Pulse Rate 75 78 92 H Respiratory Rate 17 16 16 Blood Pressure 125/82 Blood Pressure [Left Arm] 120/81 Blood Pressure [Right Arm] 131/85 Pulse Oximetry 95 94 99 02/21/19 01:10 02/21/19 02:30 02/21/19 03:29 Temperature Pulse Rate 79 76 75 Respiratory Rate 18 16 16 Blood Pressure 123/83 Blood Pressure [Left Arm] 129/82 132/94 H Blood Pressure [Right Arm] Pulse Oximetry 94 91 91 MDM - Headache Lab Data Result diagrams: 02/20/19 23:46 02/20/19 23:46 Lab Results 02/20/19 02/20/19 Range/Units 23:46 23:46 WBC 9.0 (4.5-11.0) X10^3/uL RBC 4.89 (4.0-5.2) X10^6/uL Hgb 14.5 (12.0-16.0) g/dL Hct 42.9 (36-46) % MCV 87.6 (80-100) fL MCH 29.7 (26-34) PG MCHC 33.9 (30-36) % RDW 13.3 (11.6-14.8) % Plt Count 252 (150-400) X10^3/uL Neut % (Auto) 37.8 L (50-75) % Lymph % (Auto) 49.8 H (25-40) % [place] % (Auto) 9.6 (3-14) % Eos % (Auto) 1.9 L (2-4) % Baso % (Auto) 0.9 (0-2) % Neut # (Auto) 3400 (3397-0170) /uL Lymph # (Auto) 4500 (8671-6605) /uL [place] # (Auto) 900 (0-900) /uL Eos # (Auto) 200 (0-450) /uL Baso # (Auto) 100 (0-100) /uL ESR 40 H (0-20) MM/HR Sodium 136 L (137-145) mmol/L Potassium 3.7 (3.4-5.1) mmol/L Chloride 97 L (98-107) mmol/L Carbon Dioxide 30 (22-32) mmol/L BUN 21 H (7-17) mg/dL Creatinine 0.70 (0.52-1.04) mg/dL Estimated GFR > 60.0 (>60) mL/min BUN/Creatinine Ratio 30.0 H (6-22) Glucose 464 H (70-100) mg/dL Calcium 9.7 (8.4-10.2) mg/dL C-Reactive Protein < 0.5 (<1.0) mg/dL Imaging Data CT scan - head: Radiologist's impression: Two mass lesions in the brain as described, worrisome for neoplasm, most likely metastatic disease. Infiltrative low- attenuation lesion in the right parietal lobe with associated moderate vasogenic edema inclusive of the edema the lesion measures up to 9 cm. Low-attenuation mass lesion suspected in anterior right temporal lobe also with vasogenic edema and inclusive of edema measuring up to 2.3 cm Critical Care Time Critical Care Time: Yes Total Critical Care Time: 30 Attestation: The high probability of a clinically significant, sudden or life threatening deterioration of the [neurovascular] system(s) required my full and direct attention, intervention and personal management. The aggregate critical care time was [30] minutes. This time is in addition to time spent performing reported procedures but includes the following: [x] Data Review and interpretation [x] Patient assessment and monitoring of vital signs [x] Documentation [x] Medication orders and management Discharge Plan Departure Patient Disposition: [facility] Clinical Impression: Brain metastases Clinical Impression: (Ruled Out): Hypertension Discharge Date/Time: 02/21/19 03:31 Interventions: ED Discharge Assessment Last Done: 02/21/19 03:29 Prescriptions: No Action True Brand Glucometer Qty: 1 RF: 0 atorvastatin 40 mg tablet 40 mg PO QPM Qty: 90 RF: 3 sertraline 100 mg tablet 100 mg PO DAILY Qty: 30 RF: 2 lisinopril 20 mg tablet 20 mg PO QPM Qty: 30 RF: 2 insulin glargine 100 unit/mL (3 mL) insulin pen See Rx Instructions Sub-Q BID Qty: 15 RF: 5 celecoxib [Celebrex] 200 mg capsule 200 mg PO DAILY Qty: 30 RF: 0 insulin lispro 100 unit/mL solution 16 unit SUBCUT TID Qty: 10 RF: 1 insulin syringe-needle U-100 [Advocate Syringes] 0.5 mL 30 gauge x 5/16 syringe .ROUTE .MEDSUPPLY Qty: 300 RF: 0 omeprazole 20 mg capsule,delayed release(DR/EC) 20 mg PO DAILY RF: 0 metformin 1,000 mg tablet 1,000 mg PO BID Qty: 180 RF: 3 Referrals: Merari Yen DO [Primary Care Provider] -
[2019-02-21 00:07] LABS: C-Reactive Protein Quant < 0.5 mg/dL (<1.0)
--- NOTE | 2019-02-21 00:15 | DI.CT.S_ITS ---
PROCEDURE: CT ANGIO HEAD AND NECK INDICATIONS: mass lesions on non-contrast head CT, vision change, falls TECHNIQUE: Pre-contrast 4.5 mm thick sections acquired from the foramen magnum to the vertex. After the administration of intravenous contrast, 1 mm thick sections acquired from the aortic arch through the [place] of [place]. Post-contrast 4.5 mm thick sections then re-acquired from the foramen magnum to the vertex. 3-dimensional pkubgky-rjkhsbbuh-qmckxjytrl (MIP) and/or volume rendering reformats were acquired of the central intracranial vasculature and neck separately. COMPARISON: [facility], CT, CT HEAD/BRAIN WO CON, 02/20/2019, 23:08. FINDINGS: Image quality: Excellent. BRAIN: CSF spaces: Effacement of the posterior horn the right lateral ventricle. Ventricles are prominent in size. Basal cisterns are patent. No extra-axial fluid collections. Brain: There is a large mass in the right frontal lobe demonstrating peripheral enhancement measuring 6.2 x 4.2 cm. There is vasogenic edema causing effacement of the posterior horn of the right lateral ventricle. No midline shift. No intracranial bleeds or masses. Hull-white matter interface appears intact. Skull and face: Calvarium and facial bones appear intact, without suspicious lesions. Orbits appear normal. Sinuses: Sinuses and mastoids are clear. HEAD CT ANGIOGRAPHY: Anterior circulation: Intracranial internal carotid arteries are normal in size and flow. The flow within the paired anterior cerebral arteries is normal and symmetric. The flow within the middle cerebral arteries is normal and symmetric. The anterior communicating artery is seen. No aneurysms are seen. Posterior circulation: Visualized portions of the vertebral arteries demonstrate normal caliber, and join to form a normal appearing basilar artery. Flow within the posterior cerebral arteries is normal and symmetric. No aneurysms are seen. NECK CT ANGIOGRAPHY: Carotid system: The great vessels demonstrate a conventional anatomy as they arise from the aortic arch. The origins of the common carotid arteries appear patent. The common carotid arteries demonstrate normal caliber and courses. The bifurcation regions are both widely patent. The internal carotid arteries demonstrate normal calibers and courses. Posterior circulation: The origins of the vertebral arteries both appear widely patent. The more superior extracranial portions of both vertebral arteries also demonstrate normal courses and calibers. They join to form a normal appearing basilar artery. Soft tissues: Visualized neck soft tissues demonstrate no suspicious abnormalities. There is a 1.8 cm left thyroid mass. Bones: No suspicious bony lesions. Visualized cervical spine appears normally aligned. IMPRESSION: 1. No high-grade stenosis or occlusion in anterior or posterior circulations. 2. A large mass in the right frontal lobe. 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 Recommend MRI with and without contrast for followup evaluation. 3. A 1.8 cm left thyroid mass. Recommend thyroid ultrasound for followup evaluation. Any quantitative measurements of stenosis were performed using NASCET criteria. Dictated by: Neha Lind M.D. on 02/21/2019 at 7:59 Approved by: Neha Lind M.D. on 02/21/2019 at 9:55
[2019-02-21 00:22] LABS: Erythrocyte Sedimentation Rate 40 MM/HR (0-20)
[2019-02-21 00:25] LABS: Add Manual Diff / Slide Review NO; Basophils Absolute Auto 100 /uL (0-100); Basophils Percent Auto 0.9 % (0-2); Eosinophils Absolute Auto 200 /uL (0-450); Eosinophils Percent Auto 1.9 % (2-4); Hematocrit 42.9 % (36-46); Hemoglobin 14.5 g/dL (12.0-16.0); Lymphocytes Absolute Auto 4500 /uL (1100-4500); Lymphocytes Percent Auto 49.8 % (25-40); Mean Corpuscular HGB Conc 33.9 % (30-36); Mean Corpuscular Hemoglobin 29.7 PG (26-34); Mean Corpuscular Volume 87.6 fL (80-100); Monocytes Absolute Auto 900 /uL (0-900); Monocytes Percent Auto 9.6 % (3-14); Neutrophils Absolute Auto 3400 /uL (1500-7000); Neutrophils Percent Auto 37.8 % (50-75); Platelet Count 252 X10^3/uL (150-400); Red Blood Cell Count 4.89 X10^6/uL (4.0-5.2); Red Cell Distribution Width 13.3 % (11.6-14.8)
[2019-02-21] MEDS: DEXAMETHASONE 10 MG/ML VIAL IV (01:03)
[2019-02-21 01:10] VITALS: BP 129/82; PULSE 79; RESP 18; O2SAT 94
[2019-02-21] MEDS: levETIRAcetam 1,000 MG in SODIUM CHLORIDE 0.9% 100 ML 440 ML IV (01:58)
[2019-02-21 02:30] VITALS: BP 132/94; PULSE 76; RESP 16; O2SAT 91
[2019-02-21 03:29] VITALS: BP 123/83; PULSE 75; RESP 16; O2SAT 91
== END 2019-02-21 03:31 | disposition short-term general hospital (02) ==
PROVIDERS: Emergency Provider Emergency Medicine; PCP Family Medicine
DX: C79.31 Secondary malignant neoplasm of brain (principal); I10 Essential (primary) hypertension; H54.62 Unqualified visual loss, left eye, normal vision right eye
CPT/HCPCS: 36591; 70450; 70496; 70498; 80048; 85025; 85651; 86140; 96365; 96375; 99283; 99284; J1100; J1953; Q9967

== ENCOUNTER → 2019-04-13 13:55 | Outpatient (CLI) | payer OTHER, MEDICAID, SELFPAY ==
[2019-04-13 15:19] LABS: BUN Creatinine Ratio 34.4 (6-22); Blood Urea Nitrogen 31 mg/dL (7-17); Calcium 9.9 mg/dL (8.4-10.2); Carbon Dioxide 22 mmol/L (22-32); Chloride 94 mmol/L (98-107); Estimated Glomerular Filt Rate > 60.0 mL/min (>60); HEMOLYSIS < 15 (0-50); Potassium 5.2 mmol/L (3.4-5.1); Sodium 132 mmol/L (137-145)
[2019-04-13 15:39] LABS: Glucose 500 mg/dL (70-100)
== END ==
PROVIDERS: PCP Family Medicine; Visit Provider Family Medicine
DX: I10 Essential (primary) hypertension (principal)
CPT/HCPCS: 36415; 80048

== ENCOUNTER → 2019-05-19 12:49 | Outpatient (CLI) | payer OTHER, MEDICAID, SELFPAY ==
--- NOTE | 2019-05-19 | DI.RAD.S_ITS ---
PROCEDURE: FL PICC WO FLUOROGUIDE COMPARISON: [facility], CR, CHEST 2 VIEW, 12/26/2017, 12:08. INDICATIONS: CHEMOTHERAPY TREATMENT FINDINGS: A PICC line has been placed from a left-sided approach with its tip at the distal SVC. IMPRESSION: PICC line in normal position from a left-sided approach. Dictated by: Aditya Hinojosa M.D. on 05/19/2019 at 14:50 Approved by: Aditya Hinojosa M.D. on 05/19/2019 at 14:51
== END ==
PROVIDERS: PCP Family Medicine; Visit Provider Family Medicine
DX: Z45.2 Encounter for adjustment and management of vascular access device (principal)
CPT/HCPCS: 36569

== ENCOUNTER 2019-08-19 12:58 | Emergency (ER) | payer OTHER, MEDICAID, SELFPAY ==
--- NOTE | 2019-08-19 12:57 | ED.NAVMDI ---
HPI - Nausea/Vomiting/Diarrhea General Chief complaint: Nausea/Vomiting/Diarrhea Stated complaint: Vomiting x2 Days Time Seen by Provider: 08/19/19 12:58 Source: patient and EMS Mode of arrival: EMS Limitations: no limitations History of Present Illness HPI Narrative: Patient is a 49-year-old female with history of diabetes and glioblastoma presenting with vomiting ongoing for last 2 days worse today. She has a history of glioblastoma being treated over at [facility]. She was initially diagnosed in February. Were she had a tumor removed in her right frontal region. She has Zofran at home but she does not like the taste of it unable to keep anything down. She overall feels weak. But she does typically feel weak. She says it is a little bit more on her left side. She has no abdominal pain. MD complaint: nausea and vomiting Onset (ago): day(s) Description of Vomiting: watery Description of Diarrhea: none Associated Abdominal Pain: No Related Data Home Medications Medication Instructions Recorded Confirmed omeprazole 20 mg capsule,delayed 20 mg PO DAILY 10/27/18 02/03/19 release dexamethasone 4 mg tablet 4 mg PO Q12H 03/27/19 Previous Rx's Medication Instructions Recorded True Brand Glucometer #1 ea 06/21/18 metformin 1,000 mg tablet 1,000 mg PO BID #180 tab 12/28/18 insulin syringe-needle U-100 0.5 #300 each 01/26/19 mL 30 gauge x 5/16 True Brand test strips #100 each 03/13/19 atorvastatin 40 mg tablet 40 mg PO QPM #90 tab 03/13/19 sulfamethoxazole 800 1 tab PO DAILY #30 tab 03/27/19 mg-trimethoprim 160 mg tablet ondansetron 8 mg disintegrating 8 mg PO TID PRN #30 tab 05/10/19 tablet metoclopramide HCl 10 mg tablet 10 mg PO TID #90 tab 05/16/19 insulin lispro 100 unit/mL See Rx Instructions SUBCUT QID #30 05/17/19 subcutaneous solution ml insulin NPH isoph U-100 human 100 See Rx Instructions SUBCUT QAM #15 05/18/19 unit/mL (3 mL) subcutaneous pen ml lisinopril 20 mg tablet 20 mg PO QPM #30 tab 07/10/19 sertraline 100 mg tablet 100 mg PO DAILY #30 tab 07/10/19 prochlorperazine maleate 10 mg PO TID PRN #10 tab 08/19/19 Allergies Allergy/AdvReac Type Severity Reaction Status Date / Time promethazine [From PHENERGAN] Allergy Severe HIVES Verified 02/03/19 14:11 Review of Systems Review of Systems ROS Unobtainable: All systems reviewed & are unremarkable except as noted in HPI and below Constitutional Constitutional: Denies chills, Denies fever(s), Denies lethargy and Denies weakness Eyes Eyes: Denies change in vision, Denies eye discharge, Denies irritation and Denies loss of vision ENT Ears, Nose, Mouth, and Throat: Denies vertigo and Denies dizziness Cardiovascular Cardiovascular: Denies chest pain, Denies irregular heart rhythm, Denies lightheadedness, Denies palpitations, Denies dyspnea, Denies dyspnea on exertion and Denies orthopnea Respiratory Respiratory: Denies cough, Denies dyspnea, Denies dyspnea on exertion and Denies wheezing Gastrointestinal Gastrointestinal: Reports as per HPI Genitourinary Genitourinary: Denies hematuria, Denies flank pain, Denies urinary incontinence and Denies urinary urgency Musculoskeletal Musculoskeletal: Denies back pain, Denies muscle weakness, Denies numbness and Denies tingling Integumentary/Breasts Skin/Breast: Denies pruritus, Denies erythema, Denies rash and Denies wounds Neurologic Neurologic: Reports as per HPI, Denies confusion, Denies vertigo, Denies dizziness, Denies loss of vision, Denies numbness, Denies convulsions, Denies tingling and Denies weakness Psychiatric Psychiatric: Denies confusion Endocrine Endocrine: Denies palpitations Allergic/Immunologic Allergic/Immunologic: Denies wheezing [facility] Medical History Anxiety disorder (Chronic) Chronic back pain (Chronic) Diabetes (Chronic) Glioblastoma multiforme of parietal lobe (Acute ~02/2019) HTN (hypertension) (Chronic) Hyperlipidemia (Chronic) Obesity (Chronic) Polyneuropathy (05/20/15) Tibial plateau fracture (Resolved) Uncontrolled diabetes mellitus type 2 without complications (06/17/15) Surgical History History of carpal tunnel repair (Resolved 11/06/15) History of craniotomy (Resolved ~02/2019) History of liver biopsy (Resolved 2000) History of tonsillectomy (Resolved 1988) Status post tubal ligation (Resolved 1999) Status post vaginal hysterectomy (Resolved 2004) Family History Father Diabetes mellitus Mother Diabetes mellitus Hypothyroid Grandfather COPD (chronic obstructive pulmonary disease) Grandmother CAD (coronary artery disease) [place] (myocardial infarction) Social History Smoking Status: Former smoker alcohol intake: never substance use type: does not use Family History Father Diabetes mellitus Mother Diabetes mellitus Hypothyroid Grandfather COPD (chronic obstructive pulmonary disease) Grandmother CAD (coronary artery disease) [place] (myocardial infarction) Social History Smoking Status: Former smoker alcohol intake: never substance use type: does not use Exam Initial Vital Signs Initial Vital Signs: Vital Signs Temperature 98.9 F 08/19/19 13:00 Pulse Rate 108 H 08/19/19 13:00 Respiratory Rate 22 08/19/19 13:00 Blood Pressure 133/78 08/19/19 13:00 Pulse Oximetry 99 08/19/19 13:00 GENERAL: Chronically ill female HEENT: Head atraumatic,EOMI, pupils reactive, face symmetric, dry mucous membranes CARDIOVASCULAR: Regular rate and rhythm without murmurs, rubs or gallops. RESPIRATORY: Breath sounds equal bilaterally, no wheezes rales or rhonchi. ABDOMEN: Soft, nontender. Normoactive bowel sounds all 4 quadrants. No guarding or rebound. EXTREMITIES: Normal range of motion, no clubbing or edema. Neurovascularly intact NEUROLOGICAL: Alert and oriented x4.Normal gait and speech. Cranial nerves II through XII grossly intact. 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 Scores GCS Calista coma scale eye opening: Spontaneous [place] coma scale verbal response: Orientated Calista coma scale motor response: Obey commands Calista coma scale total score: 15 Course Orders Ordered: ED Orders 08/19/19 12:57 CT head/brain wo con Stat EKG-12 Lead Stat 08/19/19 13:48 Complete Blood Count AUTO DIFF Stat Comprehensive Metabolic Panel Stat Ketones (Beta-Hydroxybutyrate) Stat Lactate (Lactic Acid) Stat 08/19/19 13:50 Venous Blood Gas Stat 08/19/19 17:34 Urine Culture Stat Urine Microscopic Stat Discontinued Medications Dexamethasone (Decadron) 10 mg IV NOW ONE Stop: 08/19/19 14:36 Last Admin: 08/19/19 14:43 Dose: 10 mg Documented by: SERINA Sodium Chloride (Normal Saline 0.9%) 1,000 mls @ 1,000 mls/hr IV BOLUS ONE Stop: 08/19/19 13:56 Last Infusion: 08/19/19 14:48 Dose: 0 mls/hr Documented by: Admin: 08/19/19 13:32 Dose: 1,000 mls/hr Documented by: ROMY Sodium Chloride (Normal Saline 0.9%) 1,000 mls @ 1,000 mls/hr IV BOLUS ONE Stop: 08/19/19 15:34 Last Infusion: 08/19/19 16:15 Dose: 0 mls/hr Documented by: Admin: 08/19/19 14:44 Dose: 1,000 mls/hr Documented by: SERINA Ondansetron HCl (Zofran) 4 mg IV NOW ONE Stop: 08/19/19 12:58 Last Admin: 08/19/19 13:32 Dose: 4 mg Documented by: ROMY Pantoprazole Sodium (Protonix) 40 mg IV NOW ONE Stop: 08/19/19 14:36 Last Admin: 08/19/19 14:43 Dose: 40 mg Documented by: SERINA Prochlorperazine (Compazine) 10 mg IV NOW ONE Stop: 08/19/19 14:50 Last Admin: 08/19/19 14:53 Dose: 10 mg Documented by: SERINA Vital Signs Vital signs: Vital Signs - 8 hr 08/19/19 13:00 08/19/19 13:53 08/19/19 15:02 Temperature 98.9 F Pulse Rate 108 H 83 81 Respiratory Rate 22 18 16 Blood Pressure 133/78 Blood Pressure [Left Arm] 130/85 125/79 Pulse Oximetry 99 98 100 MDM - Nausea/Vomiting/Diarrhea Lab Data Attestation: I reviewed the patient's lab results. Result diagrams: 08/19/19 13:48 08/19/19 13:48 Labs: Lab Results 08/19/19 08/19/19 08/19/19 Range/Units 13:48 13:48 13:48 WBC 7.1 (4.5-11.0) X10^3/uL RBC 4.95 (4.0-5.2) X10^6/uL Hgb 14.5 (12.0-16.0) g/dL Hct 43.2 (36-46) % MCV 87.2 (80-100) fL MCH 29.2 (26-34) PG MCHC 33.5 (30-36) % RDW 14.0 (11.6-14.8) % Plt Count 173 (150-400) X10^3/uL Neut % (Auto) 61.0 (50-75) % Lymph % (Auto) 29.0 (25-40) % [place] % (Auto) 8.0 (3-14) % Eos % (Auto) 1.3 L (2-4) % Baso % (Auto) 0.7 (0-2) % Neut # (Auto) 4300 (9728-5849) /uL Lymph # (Auto) 2100 (7183-0960) /uL [place]in # (Auto) 600 (0-900) /uL Eos # (Auto) 100 (0-450) /uL Baso # (Auto) 0 (0-100) /uL VBG pH (7.33-7.43) VBG pCO2 (45-50) mmHg VBG pO2 (35-45) mmHg VBG HCO3 (23-28) mmol/L VBG Total CO2 (24-29) mmol/L VBG O2 Saturation (70-75) % VBG Base Excess (0-4) mmol/L Sodium 141 (137-145) mmol/L Potassium 3.6 (3.4-5.1) mmol/L Chloride 104 (98-107) mmol/L Carbon Dioxide 29 (22-32) mmol/L BUN 20 H (7-17) mg/dL Creatinine 0.70 (0.52-1.04) mg/dL Estimated GFR > 60.0 (>60) mL/min BUN/Creatinine Ratio 28.6 H (6-22) Glucose 184 H (70-100) mg/dL Lactate 2.4 H (0.7-2.1) mmol/L Calcium 9.7 (8.4-10.2) mg/dL Total Bilirubin 0.7 (0.2-1.3) mg/dL AST 22 (14-36) IU/L ALT 51 (9-52) IU/L Alkaline Phosphatase 75 (38-126) U/L Total Protein 6.6 (6.3-8.2) g/dL Albumin 3.7 (3.5-5.0) g/dL Globulin 2.9 (1.7-4.1) g/dL Albumin/Globulin Ratio 1.3 (1.0-2.8) Urine RBC (0-5/HPF) Urine WBC (0-5/HPF) Ur Squamous Epith Cells (0-5/HPF) Amorphous Sediment Urine Bacteria (None) Ur Culture Indicated? Ketones 0.07 (<0.27) mmol/L 08/19/19 08/19/19 08/19/19 Range/Units 13:50 15:52 17:34 WBC (4.5-11.0) X10^3/uL RBC (4.0-5.2) X10^6/uL Hgb (12.0-16.0) g/dL Hct (36-46) % MCV (80-100) fL MCH (26-34) PG MCHC (30-36) % RDW (11.6-14.8) % Plt Count (150-400) X10^3/uL Neut % (Auto) (50-75) % Lymph % (Auto) (25-40) % [place] % (Auto) (3-14) % Eos % (Auto) (2-4) % Baso % (Auto) (0-2) % Neut # (Auto) (0430-4143) /uL Lymph # (Auto) (5799-7446) /uL [place]in # (Auto) (0-900) /uL Eos # (Auto) (0-450) /uL Baso # (Auto) (0-100) /uL VBG pH 7.39 (7.33-7.43) VBG pCO2 40.1 L (45-50) mmHg VBG pO2 29 L (35-45) mmHg VBG HCO3 24 (23-28) mmol/L VBG Total CO2 25 (24-29) mmol/L VBG O2 Saturation 55 L (70-75) % VBG Base Excess -1.0 L (0-4) mmol/L Sodium (137-145) mmol/L Potassium (3.4-5.1) mmol/L Chloride (98-107) mmol/L Carbon Dioxide (22-32) mmol/L BUN (7-17) mg/dL Creatinine (0.52-1.04) mg/dL Estimated GFR (>60) mL/min BUN/Creatinine Ratio (6-22) Glucose (70-100) mg/dL Lactate 2.1 (0.7-2.1) mmol/L Calcium (8.4-10.2) mg/dL Total Bilirubin (0.2-1.3) mg/dL AST (14-36) IU/L ALT (9-52) IU/L Alkaline Phosphatase (38-126) U/L Total Protein (6.3-8.2) g/dL Albumin (3.5-5.0) g/dL Globulin (1.7-4.1) g/dL Albumin/Globulin Ratio (1.0-2.8) Urine RBC 1-5/hpf (0-5/HPF) Urine WBC 1-5/hpf (0-5/HPF) Ur Squamous Epith Cells 1-5 /hpf (0-5/HPF) Amorphous Sediment 3+ Urine Bacteria None seen (None) Ur Culture Indicated? Specimen cultured Ketones (<0.27) mmol/L Urine Dip Bedside Urine Glucose 1000 mg/dl Bedside Urine Bilirubin + 1 Bedside Urine Ketone - Negative Urine Specific [place] 1.025 Bedside Urine Occult Blood - Negative Bedside Urine pH 5.5 Bedside Urine Protein +/- 15 Bedside Urine Nitrite - Negative Bedside Urine Leukocytes + [address] scan - head: Radiologist's impression: PROCEDURE: CT HEAD/BRAIN WO CON INDICATIONS: vomiting known glioblastoma TECHNIQUE: Noncontrast 4.5 mm thick angled axial sections acquired from the foramen magnum to the vertex, with coronal and sagittal reformats. For radiation dose reduction, the following was used: automated exposure control, adjustment of mA and/or kV according to patient size. COMPARISON: [facility], MR, MR BRAIN WITH/WITHOUT CONTRAST, 07/21/2019, 11:29. [facility], CT, CT HEAD WITHOUT CONTRAST, 05/22/2019, 22:46. [facility], CT, CT HEAD/BRAIN WO CON, 02/20/2019, 23:08. FINDINGS: Image quality: Excellent. CSF spaces: Postsurgical changes are redemonstrated status post prior resection in the parietal lobe. The surgical cavity appears similar in size compared to the recent prior studies. The ventricles are enlarged, similar in size to the recent MRI but progressively increased from the prior CT. Basal cisterns are patent. Brain: A surgical cavity is redemonstrated within the left frontal lobe. There is associated vasogenic edema which has increased compared to the prior studies with increased extension anteriorly in the white matter of the right frontal and parietal lobes. There is also involvement of the right temporal and occipital lobes redemonstrated. There is increased hyperattenuation along the corpus callosum with mild extension across midline to the left. The findings are suggestive of disease progression. No acute intracranial hemorrhage. No subfalcine or transtentorial herniation. Skull and face: Postsurgical changes are redemonstrated status post prior right craniotomy. No acute fractures. Sinuses: Visualized sinuses and mastoids are clear. IMPRESSION: 1. Postsurgical changes are demonstrated in the right frontal lobe status post prior resection. 2. Increased vasogenic edema extending into the right frontal lobe as well as hypodensity in the right corpus callosum extending across midline which appears slightly increased. The findings are suggestive of disease progression. Further evaluation may be obtained with a contrast enhanced MRI. 3. No acute intracranial hemorrhage or herniation. 4. Ventriculomegaly is progressively mildly increased compared to the prior studies. Dictated by: Cabrera Zaman M.D. on 08/19/2019 at 12:21 MDM Narrative Medical decision making narrative: Tolerating oral fluids. no focal deficits. Possible progression of disease on CT. She is drinking apple juice. I have called and spoken with the daughter discussed transportation back home, she will come and pick her up shortly. Discussed going home with the patient she is wanting to go home. Discharge Plan Departure Patient Disposition: Home Clinical Impression: Vomiting Qualifiers: Vomiting type: unspecified Vomiting Intractability: non-intractable Nausea presence: with nausea Qualified Code(s): R11.2 - Nausea with vomiting, unspecified Discharge Date/Time: 08/19/19 16:43 Instructions: DI for Vomiting -- Adult Activity Restrictions/Additional Instructions: *You have been diagnosed with vomiting *What to do: You were given 10 mg of dexamethasone today hopefully will help with some of her symptoms. Increase fluid as tolerated try and drink something with sugar and electrolytes such as Gatorade or coconut water, popsicle Jell-O ensure are also good CT head today showed possible progression of your disease however please confirm and discuss this with your oncology team *Continue to take medications as directed Zofran 4 mg every 8 hours if needed for nausea vomiting Compazine 10 mg every 8 hours if needed for nausea or vomiting-->SENT TO [facility] *Follow up with your primary care provider in 2-3 days *Return to ER if you should have persistent nausea or vomiting, weakness numbness tingling difficulty speaking or any new, worsening or concerning symptoms Prescriptions: New prochlorperazine maleate 10 mg tablet 10 mg PO TID PRN (Reason: nausea and vomiting) Qty: 10 RF: 0 No Action (DME) True Brand Glucometer Qty: 1 RF: 0 (DME) insulin syringe-needle U-100 [[facility] [employer]] 0.5 mL 30 gauge x 5/16 syringe See Dose Instructions .ROUTE .MEDSUPPLY Qty: 300 RF: 0 atorvastatin 40 mg tablet 40 mg PO QPM Qty: 90 RF: 3 (DME) True Brand test strips Qty: 100 RF: 1 ondansetron 8 mg tablet,disintegrating 8 mg PO TID PRN (Reason: nausea and vomiting) Qty: 30 RF: 1 metoclopramide HCl 10 mg tablet 10 mg PO TID Qty: 90 RF: 0 insulin lispro 100 unit/mL solution See Rx Instructions SUBCUT QID Qty: 30 RF: 11 Humulin N NPH Insulin KwikPen 100 unit/mL (3 mL) insulin pen See Rx Instructions SUBCUT QAM Qty: 15 RF: 0 lisinopril 20 mg tablet 20 mg PO QPM Qty: 30 RF: 2 sertraline 100 mg tablet 100 mg PO DAILY Qty: 30 RF: 2 sulfamethoxazole-trimethoprim 800-160 mg tablet 1 tab PO DAILY Qty: 30 RF: 0 dexamethasone 4 mg tablet 4 mg PO Q12H RF: 0 omeprazole 20 mg capsule,delayed release(DR/EC) 20 mg PO DAILY RF: 0 metformin 1,000 mg tablet 1,000 mg PO BID Qty: 180 RF: 3 Referrals: Merari Yen DO [Primary Care Provider] -
[2019-08-19 13:00] VITALS: BP 133/78; PULSE 108; RESP 22; TEMP 37.2; O2SAT 99
[2019-08-19] MEDS: SODIUM CHLORIDE 0.9% 1,000 ML 1000 ML IV ×2 (13:32→14:44)
[2019-08-19] MEDS: ONDANSETRON 4 MG/2 ML INJ IV (13:32)
--- NOTE | 2019-08-19 13:43 | PC.NURSE ---
Pt w/ known glioblastoma. Has had progression of left sided weakness at the same time as increased nausea / vomiting. No active treatment. Has appointment on Wednesday.
[2019-08-19 13:53] VITALS: BP 130/85; PULSE 83; RESP 18; O2SAT 98
[2019-08-19 13:57] LABS: Add Manual Diff / Slide Review NO; Basophils Absolute Auto 0 /uL (0-100); Basophils Percent Auto 0.7 % (0-2); Eosinophils Absolute Auto 100 /uL (0-450); Eosinophils Percent Auto 1.3 % (2-4); Hematocrit 43.2 % (36-46); Hemoglobin 14.5 g/dL (12.0-16.0); Lymphocytes Absolute Auto 2100 /uL (1100-4500); Mean Corpuscular HGB Conc 33.5 % (30-36); Mean Corpuscular Hemoglobin 29.2 PG (26-34); Mean Corpuscular Volume 87.2 fL (80-100); Monocytes Absolute Auto 600 /uL (0-900); Neutrophils Absolute Auto 4300 /uL (1500-7000); Platelet Count 173 X10^3/uL (150-400); Red Blood Cell Count 4.95 X10^6/uL (4.0-5.2); White Blood Cell Count 7.1 X10^3/uL (4.5-11.0)
[2019-08-19 14:11] LABS: HEMOLYSIS < 15 (0-50)
[2019-08-19 14:16] LABS: Alanine Aminotransferase 51 IU/L (9-52); Albumin 3.7 g/dL (3.5-5.0); Albumin Globulin Ratio 1.3 (1.0-2.8); Alkaline Phosphatase 75 U/L (38-126); Aspartate Aminotransferase 22 IU/L (14-36); BUN Creatinine Ratio 28.6 (6-22); Bilirubin Total 0.7 mg/dL (0.2-1.3); Blood Urea Nitrogen 20 mg/dL (7-17); Calcium 9.7 mg/dL (8.4-10.2); Carbon Dioxide 29 mmol/L (22-32); Chloride 104 mmol/L (98-107); Estimated Glomerular Filt Rate > 60.0 mL/min (>60); Globulin 2.9 g/dL (1.7-4.1); Glucose 184 mg/dL (70-100); Potassium 3.6 mmol/L (3.4-5.1); Sodium 141 mmol/L (137-145); Total Protein 6.6 g/dL (6.3-8.2)
[2019-08-19 14:17] LABS: Lactate (Lactic Acid) 2.4 mmol/L (0.7-2.1)
[2019-08-19 14:35] LABS: Ketones (Beta-Hydroxybutyrate) 0.07 mmol/L (<0.27)
[2019-08-19] MEDS: PANTOPRAZOLE 40 MG VIAL IV (14:43)
[2019-08-19] MEDS: DEXAMETHASONE 10 MG/ML VIAL IV (14:43)
[2019-08-19] MEDS: PROCHLORPERAZINE 10 MG/2 ML VIAL IV (14:53)
[2019-08-19 15:02] VITALS: BP 125/79; PULSE 81; RESP 16; O2SAT 100
[2019-08-19 15:52] LABS: Reflexed Lactate in 2 Hours Y
[2019-08-19 17:00] LABS: Lactate 2HR (Lactic Acid Rflx) 2.1 mmol/L (0.7-2.1)
[2019-08-19 17:36] LABS: Bacteria Urine None Seen
[2019-08-19 18:13] LABS: Amorphous Sediment Urine 3+; Culture Indicated Urine Specimen Cultured; RBC Urine 1-5/HPF (0-5/HPF); Squamous Epithelial Cell Urine 1-5 /HPF (0-5/HPF); WBC Urine 1-5/HPF (0-5/HPF)
[2019-08-19 18:47] LABS: HCO3 VBG 24 mmol/L (23-28); PCO2 VBG 40.1 mmHg (45-50); PO2 VBG 29 mmHg (35-45); pH VBG 7.39 (7.33-7.43)
[2019-08-19 18:50] LABS: Total CO2 VBG 25 mmol/L (24-29)
[2019-08-19 18:51] LABS: Oxygen Saturation VBG 55 % (70-75)
== END 2019-08-19 16:43 | disposition home or self-care (01) ==
PROVIDERS: Emergency Provider Emergency Medicine; PCP Family Medicine
DX: R11.2 Nausea with vomiting, unspecified (principal); E11.10 Type 2 diabetes mellitus with ketoacidosis without coma
CPT/HCPCS: 36415; 70450; 80053; 81003; 81015; 82009; 82805; 83605; 85025; 87086; 96361; 96374; 96375; 99283; 99285; C9113; J0780; J1100; J2405

== ENCOUNTER 2019-08-23 12:12 | Observation (INO) | payer OTHER, MEDICAID, SELFPAY ==
[2019-08-23] VITALS (16 sets, daily range): BP systolic 116–162; BP diastolic 70–102; PULSE 71–104; RESP 10–24; TEMP 36.4–37.2; O2SAT 96–100; BMI 28.9
[2019-08-23 12:46] LABS: INR 1.1 (0.9-1.3); Prothrombin Time 12.4 SECONDS (10.1-12.7)
[2019-08-23 12:49] LABS: PTT Partial Thromboplastin Tim 30 SECONDS (26.4-36.2)
--- NOTE | 2019-08-23 12:50 | ED.WEAKNESS ---
HPI - Weakness General Chief complaint: Weakness Stated complaint: Weakness Time Seen by Provider: 08/23/19 12:26 Source: patient and EMS Mode of arrival: EMS Limitations: no limitations History of Present Illness HPI Narrative: This is a 49-year-old female comes in with complaint of weakness. Patient states that she has been feeling increasing weak. She denies as a generalized weakness it is not localized or focal in any way. Patient has not had any fevers, she has not had any new headaches. No new vision changes. Patient has had chronic vomiting but has been more persistent and worse lately. She denies any chest pain, no shortness of breath. No abdominal pain. She denies any urinary frequency urgency or dysuria. No new changes with bowel movements. Patient denies any rashes or skin changes. She has a history significant for glioblastoma and had resection she still has several small residual areas. This was in February at [facility]. She is not currently on any chemo or radiation. She does have diabetes, dyslipidemia. She is taking insulin as well as metformin. She is on dexamethasone [address] lencho chawla is her primary care, Dr. mel Davenport is her local oncologist Related Data Home Medications Medication Instructions Recorded Confirmed dexamethasone 4 mg tablet 4 mg PO Q12H 03/27/19 08/23/19 acetaminophen 0 mg PO DIRECTED 08/23/19 08/23/19 calcium carbonate [Calcium Antacid] 400 mg PO TID 08/23/19 08/23/19 insulin lispro [Humalog KwikPen 0 unit SUBCUT DIRECTED 08/23/19 08/23/19 Insulin] metformin 1,000 mg PO BID 08/23/19 08/23/19 pantoprazole 40 mg PO DAILY 08/23/19 08/23/19 polyethylene glycol 3350 0 g PO DIRECTED 08/23/19 08/23/19 Previous Rx's Medication Instructions Recorded True Brand Glucometer #1 ea 06/21/18 insulin syringe-needle U-100 0.5 #300 each 01/26/19 mL 30 gauge x 04/06 True Brand test strips #100 each 03/13/19 atorvastatin 40 mg tablet 40 mg PO QPM #90 tab 03/13/19 sulfamethoxazole 800 1 tab PO DAILY #30 tab 03/27/19 mg-trimethoprim 160 mg tablet ondansetron 8 mg disintegrating 8 mg PO TID PRN #30 tab 05/10/19 tablet sertraline 100 mg tablet 100 mg PO DAILY #30 tab 07/10/19 Allergies Allergy/AdvReac Type Severity Reaction Status Date / Time promethazine [From PHENERGAN] Allergy Severe HIVES Verified 08/23/19 12:36 Review of Systems Review of Systems ROS Unobtainable: All systems reviewed & are unremarkable except as noted in HPI and below Constitutional Constitutional: Denies chills, Denies fever(s), Denies headache(s), Reports lethargy and Reports weakness ENT Ears, Nose, Mouth, and Throat: Denies headache(s) Cardiovascular Cardiovascular: Denies chest pain, Denies irregular heart rhythm, Denies lightheadedness, Denies palpitations, Denies dyspnea, Denies dyspnea on exertion and Denies orthopnea Respiratory Respiratory: Denies chest congestion, Denies cough, Denies dyspnea, Denies dyspnea on exertion and Denies wheezing Gastrointestinal Gastrointestinal: Denies abdominal pain, Denies change in bowel habits, Denies constipation, Denies diarrhea, Reports nausea and Reports vomiting Genitourinary Genitourinary: Denies hematuria, Denies urinary frequency, Denies dysuria, Denies flank pain, Denies urinary incontinence, Denies urinary hesitancy and Denies urinary urgency Musculoskeletal Musculoskeletal: Denies back pain, Reports muscle weakness (Generalized), Denies numbness and Denies tingling Neurologic Neurologic: Denies headache(s), Denies numbness, Denies tingling and Reports weakness Endocrine Endocrine: Denies palpitations Allergic/Immunologic Allergic/Immunologic: Denies wheezing PFSH Social History household members: significant other and family Smoking Status: Former smoker alcohol intake: never substance use type: does not use Exam Narrative Exam Narrative: GEN: Obese female, alert and oriented x 3, patient appears to be in mild distress. Patient is slow to answer but appropriate. She does not appear that she feels well today. HEENT: Atraumatic, patient has healed incision on her right scalp. Pupils are equal round reactive to light, extraocular movements are intact, nares are clear, there is no conjunctival pallor. Mucous membranes are dry. HEART: Regular rate and rhythm without murmur, clicks, rubs. Pulses are equal in upper and lower extremities LUNGS:Lungs clear to auscultation, no wheezes, rales, crackles, chest moves symmetrically, no tachypnea or accessory muscle use ABD:bowel sounds normal, soft, non-tender, no guarding, rebound, rigidity, no masses noted, no hepatosplenomegaly :No CVA tenderness MSCL: Non-tender. NEURO:CN 2-12 intact, sensation normal, reflexes 2/4 upper and lower extremities. Initial Vital Signs Initial Vital Signs: Vital Signs Temperature 98.9 F 08/23/19 11:40 Pulse Rate 95 H 08/23/19 11:40 Respiratory Rate 24 08/23/19 11:40 Blood Pressure 151/96 H 08/23/19 11:40 Pulse Oximetry 98 08/23/19 11:40 Course Orders Ordered: ED Orders 08/23/19 12:30 Complete Blood Count AUTO DIFF Stat Comprehensive Metabolic Panel Stat Lactate (Lactic Acid) Stat Lipase Stat Partial Thromboplastin Time Stat Prothrombin Time INR Stat 08/23/19 13:02 CT head/brain wo/w con Stat 08/23/19 16:30 Urine Microscopic Stat Dexamethasone (Decadron) 4 mg IV Q12H [facility] Last Admin: 08/23/19 18:54 Dose: 4 mg Documented by: ELSA Dextrose ([email or web address]) 25 gm IV PRN PRN PRN Reason: Hypoglycemia Dextrose/Sodium Chloride (Dextrose 5%-0.45% Ns) 1,000 mls @ 100 mls/hr IV CONT [facility] Last Admin: 08/23/19 18:53 Dose: 100 mls/hr Documented by: ELSA Insulin Aspart (Novolog Flexpen) 0 unit SUBCUT ACHS [facility]; Protocol Insulin Glargine (Lantus Solostar (Pen)) 20 unit SUBCUT BEDTIME [facility] Morphine Sulfate (Morphine) 2 mg IV Q4HR PRN PRN Reason: Pain, Moderate (4-6) Naloxone HCl (Narcan) 0.2 mg IV Q2MIN PRN PRN Reason: Opiate Reversal Stored In Pharmacy 0 each PO PRN PRN PRN Reason: . Ondansetron HCl (Zofran) 4 mg IV Q8HR PRN PRN Reason: Nausea And Vomiting Pantoprazole Sodium (Protonix) 40 mg IV DAILY [facility] Last Admin: 08/23/19 18:53 Dose: 40 mg Documented by: TSUTTER Sertraline HCl (Zoloft) 100 mg PO DAILY SHUBHAM Discontinued Medications Sodium Chloride (Normal Saline 0.9%) 1,000 mls @ 1,000 mls/hr IV BOLUS ONE Stop: 08/23/19 14:01 Last Infusion: 08/23/19 14:30 Dose: 0 mls/hr Documented by: Admin: 08/23/19 13:24 Dose: 1,000 mls/hr Documented by: MARK Sodium Chloride (Normal Saline 0.9%) 1,000 mls @ 1,000 mls/hr IV BOLUS ONE Stop: 08/23/19 17:07 Last Infusion: 08/23/19 17:43 Dose: 0 mls/hr Documented by: Admin: 08/23/19 16:15 Dose: 1,000 mls/hr Documented by: ROMY Morphine Sulfate (Morphine) 2 mg IV NOW ONE Stop: 08/23/19 17:00 Ondansetron HCl (Zofran) 4 mg IV NOW ONE Stop: 08/23/19 12:40 Last Admin: 08/23/19 12:59 Dose: 4 mg Documented by: GERTRUDIS Vital Signs Vital signs: Vital Signs - 8 hr 08/23/19 13:00 08/23/19 13:30 08/23/19 14:00 Pulse Rate 104 H 89 90 Respiratory Rate 14 14 10 L Blood Pressure [Right Arm] 162/102 H 119/96 H 116/74 Pulse Oximetry 98 98 97 08/23/19 14:10 08/23/19 14:30 08/23/19 15:07 Pulse Rate 79 80 77 Respiratory Rate 10 L 18 15 Blood Pressure [Right Arm] 130/83 132/77 128/82 Pulse Oximetry 100 98 96 08/23/19 15:30 08/23/19 16:00 08/23/19 16:30 Pulse Rate 82 82 78 Respiratory Rate 16 20 17 Blood Pressure [Right Arm] 136/91 H 129/90 129/90 Pulse Oximetry 98 99 99 08/23/19 17:00 Pulse Rate 79 Respiratory Rate 20 Blood Pressure [Right Arm] 148/86 H Pulse Oximetry 98 MDM - Weakness Lab Data Attestation: I reviewed the patient's lab results. Result diagrams: 08/23/19 12:30 08/23/19 12:30 Labs: Lab Results 08/23/19 08/23/19 08/23/19 Range/Units 12:30 12:30 12:30 WBC 8.9 (4.5-11.0) X10^3/uL RBC 5.06 (4.0-5.2) X10^6/uL Hgb 14.7 (12.0-16.0) g/dL Hct 43.6 (36-46) % MCV 86.1 (80-100) fL MCH 29.0 (26-34) PG MCHC 33.7 (30-36) % RDW 14.3 (11.6-14.8) % Plt Count 239 (150-400) X10^3/uL Neut % (Auto) 48.6 L (50-75) % Lymph % (Auto) 38.9 (25-40) % Sibley % (Auto) 11.4 (3-14) % Eos % (Auto) 0.6 L (2-4) % Baso % (Auto) 0.5 (0-2) % Neut # (Auto) 4300 (0326-8198) /uL Lymph # (Auto) 3400 (7367-3348) /uL Sibley # (Auto) 1000 H (0-900) /uL Eos # (Auto) 100 (0-450) /uL Baso # (Auto) 0 (0-100) /uL PT 12.4 (10.1-12.7) SECONDS INR 1.1 (0.9-1.3) APTT 30 (26.4-36.2) SECONDS Sodium 141 (137-145) mmol/L Potassium 3.6 (3.4-5.1) mmol/L Chloride 102 (98-107) mmol/L Carbon Dioxide 25 (22-32) mmol/L BUN 16 (7-17) mg/dL Creatinine 0.70 (0.52-1.04) mg/dL Estimated GFR > 60.0 (>60) mL/min BUN/Creatinine Ratio 22.9 H (6-22) Glucose 358 H D (70-100) mg/dL Lactate (0.7-2.1) mmol/L Calcium 9.7 (8.4-10.2) mg/dL Total Bilirubin 0.8 (0.2-1.3) mg/dL AST 17 (14-36) IU/L ALT 38 (9-52) IU/L Alkaline Phosphatase 99 (38-126) U/L Total Protein 7.2 (6.3-8.2) g/dL Albumin 4.1 (3.5-5.0) g/dL Globulin 3.1 (1.7-4.1) g/dL Albumin/Globulin Ratio 1.3 (1.0-2.8) Lipase 59 (23-300) U/L Urine RBC (0-5/HPF) Urine WBC (0-5/HPF) Ur Squamous Epith Cells (0-5/HPF) Amorphous Sediment Urine Bacteria (None) Urine Mucus (Negative) Ur Culture Indicated? 08/23/19 08/23/19 08/23/19 Range/Units 12:30 16:03 16:30 WBC (4.5-11.0) X10^3/uL RBC (4.0-5.2) X10^6/uL Hgb (12.0-16.0) g/dL Hct (36-46) % MCV (80-100) fL MCH (26-34) PG MCHC (30-36) % RDW (11.6-14.8) % Plt Count (150-400) X10^3/uL Neut % (Auto) (50-75) % Lymph % (Auto) (25-40) % Sibley % (Auto) (3-14) % Eos % (Auto) (2-4) % Baso % (Auto) (0-2) % Neut # (Auto) (4825-3221) /uL Lymph # (Auto) (1505-6833) /uL Sibley # (Auto) (0-900) /uL Eos # (Auto) (0-450) /uL Baso # (Auto) (0-100) /uL PT (10.1-12.7) SECONDS INR (0.9-1.3) APTT (26.4-36.2) SECONDS Sodium (137-145) mmol/L Potassium (3.4-5.1) mmol/L Chloride (98-107) mmol/L Carbon Dioxide (22-32) mmol/L BUN (7-17) mg/dL Creatinine (0.52-1.04) mg/dL Estimated GFR (>60) mL/min BUN/Creatinine Ratio (6-22) Glucose (70-100) mg/dL Lactate 2.5 H 1.5 (0.7-2.1) mmol/L Calcium (8.4-10.2) mg/dL Total Bilirubin (0.2-1.3) mg/dL AST (14-36) IU/L ALT (9-52) IU/L Alkaline Phosphatase (38-126) U/L Total Protein (6.3-8.2) g/dL Albumin (3.5-5.0) g/dL Globulin (1.7-4.1) g/dL Albumin/Globulin Ratio (1.0-2.8) Lipase (23-300) U/L Urine RBC None seen (0-5/HPF) Urine WBC 1-5/hpf (0-5/HPF) Ur Squamous Epith Cells 0-1 /hpf (0-5/HPF) Amorphous Sediment 1+ Urine Bacteria Occasional (0-1) (None) Urine Mucus 2+ H (Negative) Ur Culture Indicated? Cult not indicated Urine Dip Bedside Urine Glucose 1000 mg/dl Bedside Urine Bilirubin - Negative Bedside Urine Ketone +++ 80 Urine Specific [place] 1.010 Bedside Urine Occult Blood - Negative Bedside Urine pH 5.5 Bedside Urine Protein - Negative Bedside Urine Urobilinogen +/- 1mg Bedside Urine Nitrite - Negative Bedside Urine Leukocytes - Negative Esterase Imaging Data CT scan - head: Radiologist's impression: Lyssa Whitley 49 F 1970 [place] [address] CT Scan Report Signed Patient: Lyssa WhitleyMR#: [id number] : 1970Acct:[id number] Age/Sex: 49 / FDate of Service: 08/23/19 Loc: ED Accession Number: [id number] Procedure: CT head/brain wo/w con Ordering Provider: Courtney Woods D.O. PROCEDURE: CT HEAD/BRAIN WO/W CON INDICATIONS: hx glioblastoma w residual after sx, weakness TECHNIQUE: 4.5 mm thick angled axial sections acquired from the foramen magnum to the vertex before and after the administration of intravenous contrast, with coronal and sagittal reformats. For radiation dose reduction, the following was used: automated exposure control, adjustment of mA and/or kV according to patient size. COMPARISON: Outside Film, MR, MR BRAIN WITH/WITHOUT CONTRAST, 02/21/2019, 14:17. Outside Film, MR, MR BRAIN WITH/WITHOUT CONTRAST, 02/26/2019, 21:04. Outside Film, MR, MR BRAIN WITH/WITHOUT CONTRAST, 07/21/2019, 11:29. [facility], CT, CT HEAD WITHOUT CONTRAST, 05/22/2019, 22:46. [facility], CT, CT HEAD/BRAIN WO CON, 08/19/2019, 12:57. FINDINGS: Image quality: Excellent. CSF Spaces: Basal cisterns are patent. Small subdural fluid collection is seen in the right parietal area, unchanged from the last exam. Ventricles are dilated but symmetric in size and shape. Brain: There is a large area of hypodensity in the right frontal parietal lobe consistent with postsurgical and posttreatment change. There is increased peripheral enhancement along the surgical bed, suspicious for residual viable tumor. No midline shift. No intracranial bleeds or masses. There is cerebral volume loss. 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 Skull and face: Right frontoparietal craniotomy. Calvarium and visualized facial bones appear intact, without suspicious lesions. Sinuses: There is a polyp or mucus retention cyst in the left maxillary sinus. The mastoids are clear. IMPRESSION: 1. A large area of hypodensity in the right frontoparietal lobe consistent with postsurgical and posttreatment change. There is increased enhancement along the peripheral aspect of the surgical bed, suspicious for residual viable tumor. 2. No significant mass effect or midline shift. 3. Small subdural fluid collection in the right parietal area is unchanged. Dictated by: Neha Lind M.D. on 08/23/2019 at 13:42 Approved by: Neha Lind M.D. on 08/23/2019 at 13:55 [facility] Narrative Medical decision making narrative: Patient's urine is still pending but spoke with Dr. Pritchett, patient has had increasing weakness and she states she was actually recently discharged from a nursing facility several days ago. Plan for admission for generalized weakness. Her CT does not show any clear acute changes and patient was well aware of the potentiall tumor. Lab work shows hyperglycemia, lab work does not support DKA. Repeat glucose after 1L of fluids of was mildly improved. Patient was accepted with Dr. Yen and she will take over patient's care Discharge Plan Departure Patient Disposition: Admitted As Inpatient Clinical Impression: Weakness, Hyperglycemia Discharge Date/Time: 08/23/19 17:54 Admit Date/Time: 08/23/19 17:16 Admit Provider: Merari Yen
[2019-08-23 12:51] LABS: Alanine Aminotransferase 38 IU/L (9-52); Albumin 4.1 g/dL (3.5-5.0); Albumin Globulin Ratio 1.3 (1.0-2.8); Alkaline Phosphatase 99 U/L (38-126); Aspartate Aminotransferase 17 IU/L (14-36); BUN Creatinine Ratio 22.9 (6-22); Bilirubin Total 0.8 mg/dL (0.2-1.3); Blood Urea Nitrogen 16 mg/dL (7-17); Calcium 9.7 mg/dL (8.4-10.2); Carbon Dioxide 25 mmol/L (22-32); Chloride 102 mmol/L (98-107); Estimated Glomerular Filt Rate > 60.0 mL/min (>60); Globulin 3.1 g/dL (1.7-4.1); Glucose 358 mg/dL (70-100); HEMOLYSIS < 15 (0-50); Lipase 59 U/L (23-300); Potassium 3.6 mmol/L (3.4-5.1); Sodium 141 mmol/L (137-145); Total Protein 7.2 g/dL (6.3-8.2)
[2019-08-23 12:53] LABS: Add Manual Diff / Slide Review NO; Basophils Absolute Auto 0 /uL (0-100); Basophils Percent Auto 0.5 % (0-2); Eosinophils Absolute Auto 100 /uL (0-450); Eosinophils Percent Auto 0.6 % (2-4); Hematocrit 43.6 % (36-46); Hemoglobin 14.7 g/dL (12.0-16.0); Lymphocytes Absolute Auto 3400 /uL (1100-4500); Lymphocytes Percent Auto 38.9 % (25-40); Mean Corpuscular HGB Conc 33.7 % (30-36); Mean Corpuscular Volume 86.1 fL (80-100); Monocytes Absolute Auto 1000 /uL (0-900); Monocytes Percent Auto 11.4 % (3-14); Neutrophils Absolute Auto 4300 /uL (1500-7000); Neutrophils Percent Auto 48.6 % (50-75); Platelet Count 239 X10^3/uL (150-400); Red Blood Cell Count 5.06 X10^6/uL (4.0-5.2); Red Cell Distribution Width 14.3 % (11.6-14.8); White Blood Cell Count 8.9 X10^3/uL (4.5-11.0)
[2019-08-23] MEDS: ONDANSETRON 4 MG/2 ML INJ IV (12:59)
--- NOTE | 2019-08-23 13:02 | DI.CT.S_ITS ---
PROCEDURE: CT HEAD/BRAIN WO/W CON INDICATIONS: hx glioblastoma w residual after sx, weakness TECHNIQUE: 4.5 mm thick angled axial sections acquired from the foramen magnum to the vertex before and after the administration of intravenous contrast, with coronal and sagittal reformats. For radiation dose reduction, the following was used: automated exposure control, adjustment of mA and/or kV according to patient size. COMPARISON: Outside Film, MR, MR BRAIN WITH/WITHOUT CONTRAST, 02/21/2019, 14:17. Outside Film, MR, MR BRAIN WITH/WITHOUT CONTRAST, 02/26/2019, 21:04. Outside Film, MR, MR BRAIN WITH/WITHOUT CONTRAST, 07/21/2019, 11:29. [facility], CT, CT HEAD WITHOUT CONTRAST, 05/22/2019, 22:46. [facility], CT, CT HEAD/BRAIN WO CON, 08/19/2019, 12:57. FINDINGS: Image quality: Excellent. CSF Spaces: Basal cisterns are patent. Small subdural fluid collection is seen in the right parietal area, unchanged from the last exam. Ventricles are dilated but symmetric in size and shape. Brain: There is a large area of hypodensity in the right frontal parietal lobe consistent with postsurgical and posttreatment change. There is increased peripheral enhancement along the surgical bed, suspicious for residual viable tumor. No midline shift. No intracranial bleeds or masses. There is cerebral volume loss. 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 Skull and face: Right frontoparietal craniotomy. Calvarium and visualized facial bones appear intact, without suspicious lesions. Sinuses: There is a polyp or mucus retention cyst in the left maxillary sinus. The mastoids are clear. IMPRESSION: 1. A large area of hypodensity in the right frontoparietal lobe consistent with postsurgical and posttreatment change. There is increased enhancement along the peripheral aspect of the surgical bed, suspicious for residual viable tumor. 2. No significant mass effect or midline shift. 3. Small subdural fluid collection in the right parietal area is unchanged. Dictated by: Neha Lind M.D. on 08/23/2019 at 13:42 Approved by: Neha Lind M.D. on 08/23/2019 at 13:55
[2019-08-23] MEDS: SODIUM CHLORIDE 0.9% 1,000 ML 1000 ML IV ×2 (13:24→16:15)
[2019-08-23 14:04] LABS: Lactate (Lactic Acid) 2.5 mmol/L (0.7-2.1)
[2019-08-23 15:53] LABS: Reflexed Lactate in 2 Hours Y
[2019-08-23 16:24] LABS: Lactate 2HR (Lactic Acid Rflx) 1.5 mmol/L (0.7-2.1)
--- NOTE | 2019-08-23 16:36 | PC.NURSE ---
HIMS CLERK Note: Additional HIMS CLERK and myself helped patient onto bedside commode to obtain urine sample. Patient very unsteady on feet and weak. Doctor notified.
[2019-08-23 16:55] LABS: RBC Urine None Seen (0-5/HPF)
[2019-08-23 17:13] LABS: Amorphous Sediment Urine 1+; Bacteria Urine Occasional (0-1); Culture Indicated Urine Cult Not Indicated; Mucus Urine 2+ (Negative); Squamous Epithelial Cell Urine 0-1 /HPF (0-5/HPF); WBC Urine 1-5/HPF (0-5/HPF)
--- NOTE | 2019-08-23 17:38 | PM.HP.1 ---
History of Present Illness History of Present Illness Date Patient Seen: 08/23/19 Time Patient Seen: 17:38 Chief complaint: Weakness Narrative: Patient is a 49 yo female with history of diabetes and glioblastoma multiforme last transferred from admitted to and discharged on 07/29/2019 to [facility]. She was discharged from there to home on 08/14/2019. She lives with her daughter and grand-daughter who have been trying to provide care which is difficult. Daughter called the office today saying that patient was vomiting but was too weak to roll to the side. Daughter is unable to get patient to move at all. Patient tells me that she has had a headache for the past 2 days. Tells me she hasn't taken her dexamethasone. Hasn't taken any of her meds. Hasn't eaten. Pain is frontal. Now it's a 4/10. closing her eyes helps with the pain. Missed follow up apt with me on 08/17 and also had follow up scheduled for yesterday at which she did not attend. Tells me that she is doing some sort of chemotherapy but doesn't remember the details. Patient History Family & Social History Safety & Behavioral: Feels Safe in Current Yes Environment Been Physically Hurt or No Threatened By a Person Tobacco & Substance use: Smoking Status Former smoker alcohol intake never alcohol intake frequency 0-2 drinks per day Substance Use Type does not use Meds Home Medications and Allergies Home Medications Medication Instructions Recorded Confirmed Type True Brand Glucometer #1 ea 06/21/18 08/23/19 Rx insulin syringe-needle U-100 0.5 #300 each 01/26/19 08/23/19 Rx mL 30 gauge x 04/06 True Brand test strips #100 each 03/13/19 08/23/19 Rx atorvastatin 40 mg tablet 40 mg PO QPM #90 tab 03/13/19 08/23/19 Rx dexamethasone 4 mg tablet 4 mg PO Q12H 03/27/19 08/23/19 History sulfamethoxazole 800 1 tab PO DAILY #30 tab 03/27/19 08/23/19 Rx mg-trimethoprim 160 mg tablet ondansetron 8 mg disintegrating 8 mg PO TID PRN #30 tab 05/10/19 08/23/19 Rx tablet sertraline 100 mg tablet 100 mg PO DAILY #30 tab 07/10/19 08/23/19 Rx acetaminophen 0 mg PO DIRECTED 08/23/19 08/23/19 History calcium carbonate [Calcium Antacid] 400 mg PO TID 08/23/19 08/23/19 History insulin lispro [Humalog KwikPen 0 unit SUBCUT DIRECTED 08/23/19 08/23/19 History Insulin] metformin 1,000 mg PO BID 08/23/19 08/23/19 History pantoprazole 40 mg PO DAILY 08/23/19 08/23/19 History polyethylene glycol 3350 0 g PO DIRECTED 08/23/19 08/23/19 History Allergies Allergy/AdvReac Type Severity Reaction Status Date / Time promethazine [From PHENERGAN] Allergy Severe HIVES Verified 08/23/19 12:36 Review of Systems Constitutional Constitutional: Reports fatigue, Denies fever(s), Reports headache(s), Reports lack of energy, Reports malaise, Reports poor appetite and Reports weakness ENT Ears, Nose, Mouth, and Throat: Yes headache(s) Cardiovascular Cardiovascular: Denies chest pain, Denies fainting, Reports generalize swelling and Denies shortness of breath Respiratory Respiratory: Denies cough and Denies dyspnea Gastrointestinal Gastrointestinal: Denies constipation, Denies cramping, Reports nausea and Reports vomiting Genitourinary Genitourinary: Reports system reviewed and no additional complaints, except as documented Neurologic Neurologic: Denies syncope, Reports headache(s) and Reports weakness Endocrine Endocrine: Reports fatigue Exam Vital Signs (past 8 hours): - 08/23/19 11:40 08/23/19 12:30 08/23/19 14:10 Temperature 98.9 F Pulse Rate 95 H 94 H 79 Respiratory Rate 24 16 10 L Blood Pressure 151/96 H Blood Pressure [Right Arm] 151/96 H 130/83 Pulse Oximetry 98 97 100 08/23/19 15:07 08/23/19 16:00 08/23/19 16:30 Temperature Pulse Rate 77 82 78 Respiratory Rate 15 20 17 Blood Pressure Blood Pressure [Right Arm] 128/82 129/90 129/90 Pulse Oximetry 96 99 99 08/23/19 17:00 08/23/19 17:30 Temperature Pulse Rate 79 73 Respiratory Rate 20 11 L Blood Pressure Blood Pressure [Right Arm] 148/86 H 124/70 Pulse Oximetry 98 98 Oxygen Delivery Method Room Air Const General: cooperative, well developed, cushingoid, frail appearing, ill appearing and lethargic Nutritional Appearance: cachectic Orientation: alert and awake Resp Effort & Inspection: normal respiratory effort and able to speak in complete sentences Auscultation: clear to auscultation bilaterally, no rales, no rhonchi and no wheezes Cardio Palpation: normal PMI Rate: regular rate Rhythm: regular rhythm Heart Sounds: S1 normal and S2 normal Pulses: radial pulses present bilaterally Skin General: dry skin and striae Objective Labs Result Diagrams: 08/23/19 12:30 08/23/19 12:30 Labs: Laboratory Results - last 24 hr 08/23/19 08/23/19 08/23/19 12:30 12:30 12:30 WBC 8.9 RBC 5.06 Hgb 14.7 Hct 43.6 MCV 86.1 MCH 29.0 MCHC 33.7 RDW 14.3 Plt Count 239 Neut % (Auto) 48.6 L Lymph % (Auto) 38.9 Whitley % (Auto) 11.4 Eos % (Auto) 0.6 L Baso % (Auto) 0.5 Neut # (Auto) 4300 Lymph # (Auto) 3400 Whitley # (Auto) 1000 H Eos # (Auto) 100 Baso # (Auto) 0 PT 12.4 INR 1.1 APTT 30 Sodium 141 Potassium 3.6 Chloride 102 Carbon Dioxide 25 BUN 16 Creatinine 0.70 Estimated GFR > 60.0 BUN/Creatinine Ratio 22.9 H Glucose 358 H D Lactate Calcium 9.7 Total Bilirubin 0.8 AST 17 ALT 38 Alkaline Phosphatase 99 Total Protein 7.2 Albumin 4.1 Globulin 3.1 Albumin/Globulin Ratio 1.3 Lipase 59 Urine RBC Urine WBC Ur Squamous Epith Cells Amorphous Sediment Urine Bacteria Urine Mucus Ur Culture Indicated? 08/23/19 08/23/19 08/23/19 12:30 16:03 16:30 WBC RBC Hgb Hct MCV MCH MCHC RDW Plt Count Neut % (Auto) Lymph % (Auto) Whitley % (Auto) Eos % (Auto) Baso % (Auto) Neut # (Auto) Lymph # (Auto) Whitley # (Auto) Eos # (Auto) Baso # (Auto) PT INR APTT Sodium Potassium Chloride Carbon Dioxide BUN Creatinine Estimated GFR BUN/Creatinine Ratio Glucose Lactate 2.5 H 1.5 Calcium Total Bilirubin AST ALT Alkaline Phosphatase Total Protein Albumin Globulin Albumin/Globulin Ratio Lipase Urine RBC None seen Urine WBC 1-5/hpf Ur Squamous Epith Cells 0-1 /hpf Amorphous Sediment 1+ Urine Bacteria Occasional (0-1) Urine Mucus 2+ H Ur Culture Indicated? Cult not indicated Assessment & Plan Assessment & Plan narrative: Glioblastoma multiforme s/p craniotomy with removal of tumor. CT today showing likely residual growth at the borders of the resction. Has not had her dexamethasone for the past 2 days. Now with headache. Will give her IV dexamethasone and see if this improves her headache. Dehydration. Has responded to fluid resuscitation in the ED. Will continue with D5 1/2 NS since she hasn't had any PO input for the past 2 days Infection. No obvious source. Normal WBC. No fever. Will monitor. Will continue her PO sertraline and bactrim if she can tolerate any PO at all. Zofran might help. Code status: DNR DVT prophylaxis: SCD's for now Patient currently is unable to be cared for at home and will likely require discharge to residential unless she is able to make some recovery. Will talk to oncology and [facility] tomorrow for update on plan of care.
[2019-08-23] MEDS: PANTOPRAZOLE 40 MG VIAL IV (18:53)
[2019-08-23] MEDS: DEXTROSE 5%-0.45% NS 1,000 ML 100 ML IV (18:53)
[2019-08-23] MEDS: DEXAMETHASONE 4 MG/ML VIAL IV (18:54)
[2019-08-23] MEDS: INSULIN ASPART 100 UNIT/ML INSULN PEN SUBCUT (21:04)
[2019-08-23] MEDS: INSULIN GLARGINE 100 UNIT/ML 3ML PEN 20 UNIT SUBCUT (21:04)
[2019-08-24] VITALS (8 sets, daily range): BP systolic 136–150; BP diastolic 75–97; PULSE 60–77; RESP 16; TEMP 35.9–36.8; O2SAT 96–99
[2019-08-24] MEDS: DEXTROSE 5%-0.45% NS 1,000 ML 100 ML IV (04:14)
[2019-08-24] MEDS: INSULIN ASPART 100 UNIT/ML 10ML VIAL 10 UNIT SUBCUT (04:21)
[2019-08-24 06:00] LABS: Add Manual Diff / Slide Review NO; Basophils Absolute Auto 0 /uL (0-100); Basophils Percent Auto 0.4 % (0-2); Eosinophils Absolute Auto 0 /uL (0-450); Eosinophils Percent Auto 0.1 % (2-4); Hematocrit 39.9 % (36-46); Hemoglobin 13.1 g/dL (12.0-16.0); Lymphocytes Absolute Auto 1500 /uL (1100-4500); Lymphocytes Percent Auto 25.2 % (25-40); Mean Corpuscular HGB Conc 32.8 % (30-36); Mean Corpuscular Hemoglobin 28.8 PG (26-34); Mean Corpuscular Volume 87.8 fL (80-100); Monocytes Absolute Auto 500 /uL (0-900); Monocytes Percent Auto 8.1 % (3-14); Neutrophils Absolute Auto 3900 /uL (1500-7000); Neutrophils Percent Auto 66.2 % (50-75); Platelet Count 197 X10^3/uL (150-400); Red Blood Cell Count 4.54 X10^6/uL (4.0-5.2); Red Cell Distribution Width 13.8 % (11.6-14.8); White Blood Cell Count 5.9 X10^3/uL (4.5-11.0)
[2019-08-24 06:03] LABS: Blood Urea Nitrogen 12 mg/dL (7-17); Carbon Dioxide 25 mmol/L (22-32); Chloride 105 mmol/L (98-107); Estimated Glomerular Filt Rate > 60.0 mL/min (>60); Glucose 333 mg/dL (70-100); HEMOLYSIS < 15 (0-50); Magnesium 1.7 mg/dL (1.6-2.3); Potassium 3.9 mmol/L (3.4-5.1); Sodium 137 mmol/L (137-145)
[2019-08-24] MEDS: DEXAMETHASONE 4 MG/ML VIAL IV ×2 (06:31→17:58)
--- NOTE | 2019-08-24 06:55 | PC.NURSE ---
BG at [phone], no orders to cover at that time. Called photocomposition keyboard operator provider, Dr Hazel, ordered 10units novolog. Pt to begin PO intake today, clear liqs. BG will then be AC/HS with SSI and HS glargine. On q12 IV dex, reports headaches improved since starting Dex. Tele in NSR. Pt alertness increasing over course on night. Making pleasant conversation about her grandkids this morning. Osei patent, for urinary retention. Pt high fall risk, bed alarm on.
--- NOTE | 2019-08-24 08:26 | PM.PN.1 ---
Subjective Subjective Date Patient Seen: 08/24/19 Time Patient Seen: 08:44 Interval history: Patient was sleeping but easily arousable this morning. Feels much improved. Is hungry. Headache has resolved. Exam Vital Signs (past 8 hours): - 08/24/19 03:00 Temperature 97.8 F Pulse Rate 77 Respiratory Rate 16 Blood Pressure 136/75 Pulse Oximetry 98 Oxygen Delivery Method Room Air Narrative Exam Narrative: General: Well-developed, pale, female, no acute distress, cushingoid features Heart: Regular rate and rhythm, no murmurs appreciated Lungs: Clear to auscultation bilaterally, no wheezes, rales or rhonchi Abd: soft, bx+, protuberant, nontender Extremities: Warm and well perfused, no edema Skin: pale, thickened, dry Objective Labs Result Diagrams: 08/24/19 05:30 08/24/19 05:30 Labs: Laboratory Results - last 24 hr 08/23/19 08/23/19 08/23/19 12:30 12:30 12:30 WBC 8.9 RBC 5.06 Hgb 14.7 Hct 43.6 MCV 86.1 MCH 29.0 MCHC 33.7 RDW 14.3 Plt Count 239 Neut % (Auto) 48.6 L Lymph % (Auto) 38.9 [place] % (Auto) 11.4 Eos % (Auto) 0.6 L Baso % (Auto) 0.5 Neut # (Auto) 4300 Lymph # (Auto) 3400 [place] # (Auto) 1000 H Eos # (Auto) 100 Baso # (Auto) 0 PT 12.4 INR 1.1 APTT 30 Sodium 141 Potassium 3.6 Chloride 102 Carbon Dioxide 25 BUN 16 Creatinine 0.70 Estimated GFR > 60.0 BUN/Creatinine Ratio 22.9 H Glucose 358 H D Lactate Calcium 9.7 Magnesium Total Bilirubin 0.8 AST 17 ALT 38 Alkaline Phosphatase 99 Total Protein 7.2 Albumin 4.1 Globulin 3.1 Albumin/Globulin Ratio 1.3 Lipase 59 Urine RBC Urine WBC Ur Squamous Epith Cells Amorphous Sediment Urine Bacteria Urine Mucus Ur Culture Indicated? 08/23/19 08/23/19 08/23/19 12:30 16:03 16:30 WBC RBC Hgb Hct MCV MCH MCHC RDW Plt Count Neut % (Auto) Lymph % (Auto) [place] % (Auto) Eos % (Auto) Baso % (Auto) Neut # (Auto) Lymph # (Auto) [place] # (Auto) Eos # (Auto) Baso # (Auto) PT INR APTT Sodium Potassium Chloride Carbon Dioxide BUN Creatinine Estimated GFR BUN/Creatinine Ratio Glucose Lactate 2.5 H 1.5 Calcium Magnesium Total Bilirubin AST ALT Alkaline Phosphatase Total Protein Albumin Globulin Albumin/Globulin Ratio Lipase Urine RBC None seen Urine WBC 1-5/hpf Ur Squamous Epith Cells 0-1 /hpf Amorphous Sediment 1+ Urine Bacteria Occasional (0-1) Urine Mucus 2+ H Ur Culture Indicated? Cult not indicated 08/24/19 08/24/19 05:30 05:30 WBC 5.9 RBC 4.54 Hgb 13.1 Hct 39.9 MCV 87.8 MCH 28.8 MCHC 32.8 RDW 13.8 Plt Count 197 Neut % (Auto) 66.2 Lymph % (Auto) 25.2 [place] % (Auto) 8.1 Eos % (Auto) 0.1 L Baso % (Auto) 0.4 Neut # (Auto) 3900 Lymph # (Auto) 1500 [place] # (Auto) 500 Eos # (Auto) 0 Baso # (Auto) 0 PT INR APTT Sodium 137 Potassium 3.9 Chloride 105 Carbon Dioxide 25 BUN 12 Creatinine 0.50 L Estimated GFR > 60.0 BUN/Creatinine Ratio 24.0 H Glucose 333 H Lactate Calcium 9.0 Magnesium 1.7 Total Bilirubin AST ALT Alkaline Phosphatase Total Protein Albumin Globulin Albumin/Globulin Ratio Lipase Urine RBC Urine WBC Ur Squamous Epith Cells Amorphous Sediment Urine Bacteria Urine Mucus Ur Culture Indicated? Assessment & Plan Assessment & Plan narrative: Glioblastoma multiforme s/p craniotomy with partial removal of tumor. CT showing likely residual growth at the borders of the resection. Depends on dexamethasone to manage her cerebral edema. Had been without for the prior 2 days. Given IV overnight with resolution of her headache. She is supposed to be receiving Avastin infusion at [facility] but has yet to start that process. In discussion with her physician at the [facility] the Avastin infusion should help with her cerebral edema and enable her to decrease her dosing on dexamethasone and stop the cycle she finds herself in. Discussed her case with Dr. Grey at . She will review images but her suspicion is that she has active tumor that is progressing. Stressed the importance of getting Avastin on board as soon as possible. Dehydration. Has responded well to fluid resuscitation in the ED. Will see if we can control her hyperglycemia because this is contributing to her dehydration. Diabetes. She is on 30 units of Lantus twice daily at home. Will continue that here. Add medium dose sliding scale. Infection. No obvious source. Normal WBC. No fever. Will monitor. Will continue her PO sertraline and bactrim if she can tolerate any PO at all. Zofran might help. Code status: DNR DVT prophylaxis: SCD's for now Patient currently is unable to be cared for at home and will likely require discharge to correction unless she is able to make some recovery. Discussed her case with daughter who indicates that patient does fine until she has to go for a treatment. She will be ready to go the day before but on the day of the actual visit or treatment she refuses to go. Whether this is due to anxiety or physical incapacity is unclear at this point. Will work with Care Management to see what we can arrange at discharge. Hospice has been discussed with patient and she has not been interested. Greater than 35 minutes was spent evaluating the patient on the floor, including examining the patient, discussing clinical course with clinical and nursing staff, reviewing clinical course in the computer, preparing documentation and writing orders for continued management of care, discussing status with family as appropriate, consulting with tumor center, reviewing plans for the next 24 hours with both patient, family and nursing staff as appropriate. Time Spent With Patient Time with patient: Greater than 35 minutes Quality VTE Deep Vein Thrombosis/Pulmonary Embolism Present on Admission: No
[2019-08-24] MEDS: SERTRALINE 50 MG TABLET 100 MG PO (09:19)
[2019-08-24] MEDS: PANTOPRAZOLE 40 MG VIAL IV (09:19)
[2019-08-24] MEDS: INSULIN ASPART 100 UNIT/ML INSULN PEN SUBCUT ×4 (09:21→21:01)
[2019-08-24] MEDS: INSULIN GLARGINE 100 UNIT/ML 3ML PEN 30 UNIT SUBCUT ×2 (09:23→21:03)
--- NOTE | 2019-08-24 11:23 | PT.IIE ---
Surgical History (Last Reviewed 08/19/19 @ 16:13 by Aspen Man DO) History of carpal tunnel repair (Resolved 11/06/15) History of craniotomy (Resolved ~02/2019) History of liver biopsy (Resolved 2000) History of tonsillectomy (Resolved 1988) Status post tubal ligation (Resolved 1999) Status post vaginal hysterectomy (Resolved 2004) Medical History (Last Reviewed 08/19/19 @ 16:13 by Aspen Man DO) Anxiety disorder (Chronic) Chronic back pain (Chronic) Diabetes (Chronic) Glioblastoma multiforme of parietal lobe (Acute ~02/2019) HTN (hypertension) (Chronic) Hyperlipidemia (Chronic) Obesity (Chronic) Polyneuropathy (05/20/15) Tibial plateau fracture (Resolved) Uncontrolled diabetes mellitus type 2 without complications (06/17/15) Physical Therapy Inpatient Evaluation/Re-Eval M1 PT/OT-IP Prior Functional Status Start: 08/24/19 08:32 Freq: NEEDED Status: Active Protocol: Document 08/24/19 10:35 AW (Rec: 08/24/19 11:23 AW [id number]) Medical Review Prior Functional Status Medical History Reviewed Yes Communication No known deficits Mobility and Gait Pt was transferred from to [facility] for SNF rehab on 07/29. She discharged to home on 08/14. Pt states she was able to use her FWW for household distances until about a week ago. She states she now requires heavy assist from her daughter for transfers. Activities of Daily Living and IADL's Pt endorses independence with dressing (though she notes she requires assist to remove long-sleeved shirts). She states she needs no help with bathing, but it is not clear whether she has tried in the last week. Her daughter assists with meals, laundry, and cleaning tasks. Social History Household Members significant other,family Living Arrangements House Number of Floors (Floors) One Floor Number of Stairs To Enter/Railing? 2STE with left-sided railing in the garage. Home Environment High Toilet Home Equipment Front Wheel Walker,Four Wheel Walker,Shower Seat with Backrest,Bed Rails,Grab Bars Near Toilet,Grab Bars In Shower Employment Status Unemployed Additional Social History Comment Pt lives with her daughter, two granddaughters, and her dad. M2 PT-IP Current Condition Start: 08/24/19 08:32 Freq: NEEDED Status: Active Protocol: Document 08/24/19 10:35 AW (Rec: 08/24/19 11:23 AW [id number]) Physical Therapy Current Condition Current Condition Evaluation Date 08/24/19 Treatment Diagnosis s/p craniotomy, weakness, difficulty in walking Weight Bearing Status Weight Bearing Status Full Weight Bearing M3 PT-IP Subjective Start: 08/24/19 08:32 Freq: NEEDED Status: Active Protocol: Document 08/24/19 10:35 AW (Rec: 08/24/19 11:23 AW [id number]) Subjective Physical Therapy Visit Type Type Initial Evaluation Visit Start Time 09:42 Visit Stop Time 10:14 Total Visit Minutes 32 Number of MILK VENDOR Visits 0 Physical Therapy Visit Comments Patient Comments Pt is alert and willing to participate with PT Patient Goals Pt hopes to return home with family Therapy Pain Assessment Pain When Pain Assessed At Rest Pain Present Pain Present Denied Pain M4 PT-IP Mobility and Gait Start: 08/24/19 08:32 Freq: NEEDED Status: Active Protocol: Document 08/24/19 10:35 AW (Rec: 08/24/19 11:23 AW [id number]) PT-Bed Mobility Assessment Rolling Type of Rolling Log Rolling,Roll to Left Level of Assist Minimal Assistance Supine to Sit Supine to Sit Moderate Assistance,1 Person Assistance,Bedrails Sit to Supine Sit to Supine Moderate Assistance,1 Person Assistance Scooting Scooting to Edge of Bed Contact Guard Assistance PT-Transfer Assessment Comments Mobility Comments Pt required mod assist and use of bed rail to transfer to edge of bed with bed flat. She lacked the UE strength to push up from a sidelying position. In sitting, pt leaned to the left with need for support. With verbal cues for hand placement, she was able to support herself at the edge of the bed, but continued to lean left Gait Assessment Comments Gait Comments unable PT-Balance Assessment Sitting Balance and Reactions Static Sitting Balance Ability Fair Dynamic Sitting Balance Ability Poor Comments Other Balance Tests/Deviations/Treatment Pt unable to cross midline in : sitting without support M5 PT-IP Objective Assessments Start: 08/24/19 08:32 Freq: NEEDED Status: Active Protocol: Document 08/24/19 10:35 AW (Rec: 08/24/19 11:23 AW [id number]) Orientation Orientation/Cognition Level of Alertness Alert Orientation Name,Day of Week,Place, Situation Language Function Ability No Deficits Noted Safety Awareness Understands Safety Issues Memory Description No Deficits Noted Comments Pt appeared to be an accurate historian. No word-finding difficulties observed. Gross Range of Motion Upper Extremity ROM Assessment Left Impaired Impairments L shoulder flexion ~105 degrees AROM. Full PROM without pain or restriction Lower Extremity ROM Assessment Bilaterally Impaired Strength Upper Extremity Strength Assessment Bilaterally Impaired Lower Extremity Strength Assessment Bilaterally Impaired Comments Strength Comments RUE 4-/5 LUE 3/5 RLE 4-/5 LLE 3/5 Coordination Assessment Gross Coordination Gross Coordination Impaired Assessment Finger to Nose Test Moderate Impairment Heel on Deluca Test Normal Performance Coordination Comments Signs of dysmetria on finger to nose testing with LUE, requiring extra time and with missed targets >2 cm. Sensation Assessment Sensation Gross Sensation Left UE Impaired,Left LE Impaired Light Touch Impaired Sensation Description Numbness Comments Sensation Comments Light touch sensation impaired LUE/LLE on exam with no identifiable pattern or distribution. Other Assessments Other Other Assessments Pt has notable atrophy of BLE M6 PT-IP Treatment Start: 08/24/19 08:32 Freq: NEEDED Status: Active Protocol: Document 08/24/19 10:35 AW (Rec: 08/24/19 11:23 AW [id number]) Physical Therapy Treatment Education Education Provided Safety M7 PT-IP Assessment and Plan Start: 08/24/19 08:32 Freq: NEEDED Status: Active Protocol: Document 08/24/19 10:35 AW (Rec: 08/24/19 11:23 AW [id number]) PT Summary Assessment and Plan Potential Rehabilitation Potential Fair Status of Condition at Evaluation Evolving Summary Impairments ROM,Strength,Balance, Coordination,Bed Mobility, Transfers,Gait,Activity Tolerance Assessment Summary Lyssa is a 49 yo woman with history of glioblastoma, s/p resection and subsequent SNF rehab. She discharged to home from [facility] on 08/14/19. She lives with family including her father, her daughter, and two granddaughters. PLOF: Pt describes ambulating household distances with FWW upon discharge from [facility]. Her daughter assists with transfers. She says she required min assist with some dressing tasks. Her daughter helps with meals and household tasks. CLOF: Pt is profoundly weak (left weaker than right) , requiring mod assist for bed mobility and transfer to edge of bed. She leans to the left in sitting, requiring verbal cues for hand placement after which she was able to sit unsupported but with inability to correct her left lean. She was able to scoot to edge of bed with CGA, but reported nausea. On attempt to stand, she was able to shift weight to her feet, but unable to initiate standing. She reported increased nausea and requested return to bed. Based on this evaluation, PT recommends discharge to SNF rehab when medically cleared for discharge with possible need to consider long-term care options if family is unable to provide the necessary level of assistance at home. Goals Bed Mobility Goal Standby Assistance Transfer Goal Contact Guard Assistance Gait Goal Contact Guard Assistance Gait Distance 100 feet Other Goals up/down two stairs with left rail ascending CGA Days to Meet Goals 10 Frequency of Treatment Frequency Of Treatment Once a Day Treatment Plan Physical Therapy Treatment Plan Bed Mobility Training,Transfer Training,Gait Training, Therapeutic Exercise,Balance Retraining,Discharge Planning, Hot or Cold Pack,Neuromuscular Re-ed,Coordination Retraining ,Manual Therapy Other Recommendations and Next Treatment transfers Focus Recommendations To Nursing Amount of Assist Needed Total Assistance,Mechanical Lift Discharge Recommendations PT Discharge Recommendations SNF Rehab,LTAC Equipment Needed for Home Before BSC if discharged to home. Discharge
--- NOTE | 2019-08-24 13:36 | OT.IP.EVAL ---
Past Medical History (Last Reviewed 08/19/19 @ 16:13 by Aspen Man DO) Anxiety disorder (Chronic) Chronic back pain (Chronic) Diabetes (Chronic) Glioblastoma multiforme of parietal lobe (Acute ~02/2019) HTN (hypertension) (Chronic) Hyperlipidemia (Chronic) Obesity (Chronic) Polyneuropathy (05/20/15) Tibial plateau fracture (Resolved) Uncontrolled diabetes mellitus type 2 without complications (06/17/15) Surgical History (Last Reviewed 08/19/19 @ 16:13 by Aspen Man DO) History of carpal tunnel repair (Resolved 11/06/15) History of craniotomy (Resolved ~02/2019) History of liver biopsy (Resolved 2000) History of tonsillectomy (Resolved 1988) Status post tubal ligation (Resolved 1999) Status post vaginal hysterectomy (Resolved 2004) Occupational Therapy Inpatient Evaluation/Re-Eval M1 PT/OT-IP Prior Functional Status Start: 08/24/19 08:32 Freq: NEEDED Status: Active Protocol: Document 08/24/19 13:36 ANDREY (Rec: 08/24/19 15:33 ADNREY [id number]) Medical Review Prior Functional Status Medical History Reviewed Yes Diet/Fluid Consistency Regular Communication WNL, ? occasional word substitutions Mobility and Gait Pt was transferred from to [facility] for SNF rehab on 07/29. She discharged to home on 08/14. Pt states she was able to use her FWW for household distances until about a week ago. She states she now requires heavy assist from her daughter for transfers. Activities of Daily Living and IADL's Pt states she is indep with eating, grooming, dressing except needs assist with long sleeve shirts. She states she needs no help with bathing, but it is not clear whether she has tried in the last week since she has been home from [facility]. Her family assists with meals, laundry, and cleaning tasks. Prior Functional Level (Other details) No family here to confirm home situation this session. Suspect pt is overestimating her recent self care abilities. Pt states her daughter, Rhonda, is her paid TOAN ditch worker for 40 hrs /month. Social History Household Members family Living Arrangements House Number of Floors (Floors) One Floor Number of Stairs To Enter/Railing? 2-3 MARY with left-sided railing in the garage. Home Environment High Toilet Home Equipment Front Wheel Walker,Four Wheel Walker,Shower Seat with Backrest,Bed Rails,Grab Bars Near Toilet,Grab Bars In Shower Employment Status Unemployed Additional Social History Comment Pt lives with her daughter, granddaughter age 25, and her dad. Pt states all family members work different shifts so she always has someone with her at home. M2 OT-IP Current Condition Start: 08/24/19 14:55 Freq: Status: Active Protocol: Document 08/24/19 13:36 PJM (Rec: 08/24/19 15:33 [facility] [id number]) Occupational Therapy Current Condition Current Condition Evaluation Date 08/24/19 Treatment Diagnosis L hemiplegia s/p recent glioblastoma resection w/ vomiting,headache,weakness Diagnosis Onset Date 08/23/19 Post Operative Precautions Other Precautions high fall risk, L neglect M3 OT- IP Subjective and Pain Start: 08/24/19 14:55 Freq: Status: Active Protocol: Document 08/24/19 13:36 PJM (Rec: 08/24/19 15:33 [facility] [id number]) OT- Subjective Occupational Therapy Visit Type Type Initial Evaluation Visit Start Time 13:00 Visit Stop Time 13:36 Total Visit Minutes 36 Notes No family here this session to confirm home situation. Pt had sudden onset vomiting at end of session. RN aware and BUILDING INSULATION SUPERVISOR in room to assist pt. Occupational Therapy Visit Comments Patient Comments Someone is always with me at home. Patient/Caregiver Goals none verbalized this session OT Pain Assessment Pain When Pain Assessed After Treatment Pain Present Pain Present Denied Pain M4 OT- IP ADL's Start: 08/24/19 14:55 Freq: Status: Active Protocol: Document 08/24/19 13:36 PJM (Rec: 08/24/19 15:33 [facility] [id number]) OT JYL-Odla-Uzpqnyi General Evaluation Self-Feeding Ability Independent Areas Needing Assistance Cutting Food,Opening Containers Comments OT Self-Feeding Comments poor appetite for lunch today OT ADL-Grooming General Evaluation Grooming Ability Standby Assistance Areas Needing Assistance Retrieving/Set-up of Grooming Items,Face Washing,Glasses OT ADL-Oral Care General Eval Oral Care Ability Minimal Assistance Areas of Assistance Retrieving/Set-Up of Items Devices Oral Care Devices Toothbrush Comments Oral Care Comments Pt needs min verbal cues to sequence set up of toothbrush and neglects items in L hand until verbal cues given. OT ADL-Dressing General Eval Upper Body Dressing Ability Moderate Assistance Lower Body Dressing Ability Total Assistance Comments OT Dressing Comments mod assist with gown change in bed after vomiting OT ADL-Toileting General Evaluation Toileting Ability Total Assistance Areas Needing Assistance Empty Catheter or Colostomy Comments OT Toileting Comments tejeda in place OT ADL-Bathing Bathing Type Bathing Type Bed Bath General Evaluation Bathing Ability Maximal Assistance M5 OT- IP IADL's Start: 08/24/19 14:55 Freq: Status: Active Protocol: Document 08/24/19 13:36 PJM (Rec: 08/24/19 15:33 PJ [id number]) OT-Instrumental Activities of Daily Living Deficits IADL Deficits Identified Deficits Home Safety Awareness Awareness of Need for Assistance at Home Decreased Awareness Medication Management Medication Management Caregiver Administers Medication Management Comments daughterRhonda manges pt's meds Money Management Money Management Caregiver Provides Assistance Money Management Comments father assists pt with finances Meal Preparation Meal Preparation Caregiver Provides Assist Meal Preparation Comments family provides assist Prototype Fabricator Prototype Fabricator Caregiver Provides Assist Prototype Fabricator Comments family provides assist Driving Driving Caregiver Provides Assist Driving Comments family provides assist M6 OT- IP Functional Cognition Start: 08/24/19 14:55 Freq: Status: Active Protocol: Document 08/24/19 13:36 PJM (Rec: 08/24/19 15:33 PJ [id number]) Cognitive Factors Limiting Selfcare Function Cognitive Ability Level of Alertness Alert Patient Orientation Name,Year,Place Attention Span Ability Capable of Focused Attention Ability to Follow Commands Able to Follow One Step Commands Memory Description Short Term Impaired Safety Awareness Underestimates Need for Assistance Problem Solving Ability Unable to Identify Errors, Needs Assist to Identify Solutions Executive Function Ability Unable to Remember Details Cognitive Comments Cognitive Assessment Comments Results of cognitive screen to follow OT- Vision and Hearing OT- Hearing Assessment OT- Hearing Assessment WFL OT- Vision Assessment Visual Acuity Glasses All The Time Visual Attentiveness WFL Occular Pursuits WFL Visual Nascimento Impaired Visual Spacial Neglect Left Vision Assessment Comments Pt has L homonymous hemianopsia with L visual spatial and LUE neglect noted. M7 OT- IP Mobility and Balance Start: 08/24/19 14:55 Freq: Status: Active Protocol: Document 08/24/19 13:36 PJM (Rec: 08/24/19 15:33 PJ [email or web address]) OT-Transfer Assessment Comments Mobility Comments see P.T. notes OT- Gait Assessment Comments Gait Ability Comments pt non ambulatory at present OT- Balance Assessment Comments Other Balance Tests/Deviations/Treatment see P.T. notes, pt leaning to : R in bed with head of bed elevated; needs mod assist to correct posture to midline M8 OT- IP Objective Assessments Start: 08/24/19 14:55 Freq: Status: Active Protocol: Document 08/24/19 13:36 PJM (Rec: 08/24/19 15:33 PJM [id number]) OT Gross Range of Motion Upper Extremity Range of Motion Assessment Left Impaired ROM Impairments Pt has decreased isolated AROM in L shoulder to about 100 degrees scaption. AROM WFL distally but slowed compared to RUE. LUE neglect noted duirng BUE AROM. OT Strength Upper Extremity Strength Assessment Left Impaired Shoulder 4-/5 scaption Elbow 4/5 flex, 4/5 ext Wrist 4/5 Hand 4-/5 Hand Career Development Coordinator/Teacher Strength Hand Dominance Mixed Comments Strength Comments Pt states she is now using R hand dominantly. She used B hands prior to surgery. OT- Coordination Assessment Upper Extremity Finger to Nose Test Left UE Impaired Finger Tapping Test Left UE Impaired Comments Coordination Comments LUE rapid alternating movements significantly slowed compared to R with mild dysmetria noted OT-Muscle Tone Assessment Muscle Tone WNL Yes OT Sensation Assessment Location Left Arm Light Touch Absent Deep Pressure Intact/Normal Sensation Description Numbness Comments Summary Comments Pt has decreased LUE sensation which contribues to LUE neglect Edema Edema Absent M9 OT- IP Assessment and Plan Start: 08/24/19 14:55 Freq: Status: Active Protocol: Document 08/24/19 13:36 PJM (Rec: 08/24/19 15:33 PJM [id number]) OT Summary Assessment and Plan Potential Rehabilitation Potential Fair Analytic Complexity at Evaluation Low Summary OT Impairments Range of Motion,Strength, Balance,Coordination,Sensation ,Functional Cognition, Functional Mobility,Grooming, Dressing,Toileting,Bathing, Toilet Transfers,Shower Transfers Assessment Summary Low complexity OT assessment completed on this 49 yr old woman with hx of recent resection of R frontal- parietal glioblastoma at followed by rehab stay at [facility] 07/29-08/14/19. Pt readmitted 08/23/19 with vomiting and increased weakness at home. Pt has been refusing MD appointments per chart notes from Dr Yen. Pt presents today with performance deficits in vision including L homonymous hemianopsia and L visual spatial neglect. Pt has LUE hemiparesis with mild weakness , absent lt touch sensation, impaired gross and fine coordination and LUE neglect. She has significantly impaired trunk control with poor sitting balance and unable to come to full stand or ambulate per P.T. notes. This results in significant performance deficits in all functional mobility/transfers, grooming, dressing, bathing and toileting. Suspect some cognitive impairment,as well, as pt not oriented to month (February) or date and is a vague historian at times. Mildly slowed speed of processing and decreased insight noted. Results of cognitive screening to follow. Recommend return to SNF when medically stable due to current high care needs. Will provide OT services here to address the goals below. Goals Self-Feeding Goal Independent Grooming Goal Standby Assistance Dressing Goal Moderate Assistance Toileting Goal Moderate Assistance Bathing Goal Minimal Assistance Toilet Transfer Goal Moderate Assistance,Bedside Commode OT-Other Goals Bathing goal is for upper body sponge bath seated in chair. Days to Meet Goals 10 Frequency of Treatment Frequency Of Treatment Once a Day Treatment Plan OT Treatment Plan ADL Training,Functional Cognition Training,Functional Mobility,Neuromuscular Re- education,Vision Retraining, Patient/Family Education, Discharge Planning Discharge Recommendations OT Discharge Recommendations SNF Rehab Home Equipment Needs to be determined pending progress
[2019-08-24] MEDS: ONDANSETRON 4 MG/2 ML INJ IV (13:38)
--- NOTE | 2019-08-24 14:52 | CM.DANOTE ---
Addendum entered by Mami Fraire R.N. 08/24/19 15:18: Cristy from [facility] called back. Verified that they did have patient there and discharged on 08/14, she came from [facility]. Let her know that provider is recommending alf secondary to weakness, and ensuring that she gets her medications. Cristy stated that she is unsure if they can get another approval with her insurance for single case agreement, but could try. She mentioned that she would have to talk to her team members first to see if they can accept her. Cristy will update us either today or tomorrow. If accepted, they will work on authorization. Original Note: DCP: Case received, EMR reviewed and met with patient. Introduced self and role. Was able to meet with patient to retrieve some of her information regarding living situation and baseline activity. Read Dr. Yen's recent note and achieved updated information as well. DCP assessment completed with information currently available. Patient is a 49 year old female who admitted yesterday afternoon to the care of the hospitalist team. PCP: Dr. Yen. Payer: confirmed: [employer]. Patient came to the hospital via ambulance secondary to weakness, vomiting. Patient has diagnosis of Glioblastoma, and had recent resection at [facility]. Patient has been under the care of an oncologist as well. Patient has been on Dexamethasone for inflammation, to manage cerebral edema. Patient resides in [place] with her daughter and grandchildren, who are her primary caregivers. Patient mentioned that she has 3 children. Patient was laying in bed, alert and oriented. Asked patient how she gets around at home, as far as mobility. She mentioned that she holds on to things, and does worry about falling. According to recent note, daughters have been concerned about patient not taking some of her meds, as well as some of her care needs. It is noted that patient had been at [facility] recently, discharged on or about 08/14. Looking at recent note from Dr. Yen, it may be beneficial for patient to go back to alf for more rehab. Went ahead and spoke to patient regarding this, and she did mention, she would not be opposed to going back to [place] is she has to. Left a message with Cristy at [facility] in admissions. Will go ahead and fax over cover sheet as well. P: DCP to follow case closely and be in touch with [facility] to see if they can accept. They did have her there before, will have to review her insurance. Mami Fraire RN/Vehicle Modification Technician
[2019-08-24] MEDS: ENOXAPARIN 40 MG/0.4 ML SYRINGE SUBCUT (16:12)
[2019-08-24] MEDS: TRIMETH/SULFA 160/800 (DS) TABLET 1 TAB PO (16:12)
[2019-08-25] VITALS (8 sets, daily range): BP systolic 120–156; BP diastolic 80–98; PULSE 61–70; RESP 16–18; TEMP 36.2–36.4; O2SAT 96–99
[2019-08-25] MEDS: dexAMETHasone 4 MG TABLET PO ×2 (07:37→19:01)
--- NOTE | 2019-08-25 09:17 | PM.PN.1 ---
Subjective Subjective Date Patient Seen: 08/25/19 Time Patient Seen: 08:00 Interval history: Patient dosing. Ready for breakfast. Conversation about goals of care and what is most bothersome to patient. She has difficulty riding in the car especially with roundabouts. Nausea bothers her the most. Is not nauseous now just sitting in bed. Was naseous yesterday working with PT. Zofran (not the sublingual) oral if she can manage to stand the taste has been effective for her. She is afraid of the avastin because of the ulcer side effect. She tells me that she is not afraid to . Would be interested in talking to hospice for information. Exam Vital Signs (past 8 hours): - 08/25/19 05:00 Temperature 97.5 F L Pulse Rate 64 Respiratory Rate 18 Blood Pressure 135/86 Pulse Oximetry 98 Oxygen Delivery Method Room Air Oxygen Flow Rate 0 Narrative Exam Narrative: General: Well-developed, pale, female, no acute distress, cushingoid features Heart: Regular rate and rhythm, no murmurs appreciated Lungs: Clear to auscultation bilaterally, no wheezes, rales or rhonchi Abd: soft, bx+, protuberant, nontender Extremities: Warm and well perfused, no edema Skin: pale, thickened, dry Objective Labs Result Diagrams: 08/24/19 05:30 08/24/19 05:30 Assessment & Plan Assessment & Plan narrative: Glioblastoma multiforme s/p craniotomy with partial removal of tumor. CT showing incomplete resection unchaged from past imaging. Depends on dexamethasone to manage her cerebral edema. Will transition back to oral today. She is supposed to be receiving Avastin infusion at [facility] but has yet to start that process. In discussion with her physician at the [facility] the Avastin infusion should help with her cerebral edema and enable her to decrease her dosing on dexamethasone and stop the cycle she finds herself in. Discussed her case with Dr. Grey at . Attempted to reach Dr. Jones yesterday and today to see if doing her avastin treatment here would be possible. Hospice informational meeting hopefully this afternoon. Will meet with daughter and patient at 1:30 pm for conference on goals of care. Patient expresses desire to procede with chemo but has not been able to cooperate. Nausea: Will place scopalamine patch to see if this helps with her positional nausea. Headache: cerebral edema. Improved with hydration and resumming dexamethasone. Dehydration. Has responded well to fluid resuscitation in the ED. Will see if we can control her hyperglycemia because this is contributing to her dehydration. Diabetes. Improved control with no readings in the 300's on 30 units of Lantus twice daily and at least 10 units of sliding scale. Will increase to 32 units BID today. Infection. No obvious source. Normal WBC. No fever. Will monitor. Will continue her PO sertraline and bactrim if she can tolerate any PO at all. Zofran might help. Code status: DNR DVT prophylaxis: lovenox Patient currently is unable to be cared for at home and will likely require discharge to retirement unless she is able to make some recovery. Discussed her case with daughter who indicates that patient does fine until she has to go for a treatment. She will be ready to go the day before but on the day of the actual visit or treatment she refuses to go. Whether this is due to anxiety or physical incapacity is unclear at this point. Will work with Care Management to see what we can arrange at discharge. Hospice informational meeting. Goals of care discussion with family today. Greater than 35 minutes was spent evaluating the patient on the floor, including examining the patient, discussing clinical course with clinical and nursing staff, reviewing clinical course in the computer, preparing documentation and writing orders for continued management of care, discussing status with family as appropriate, consulting with tumor center, reviewing plans for the next 24 hours with both patient, family and nursing staff as appropriate. Time Spent With Patient Time with patient: Greater than 35 minutes Quality VTE Deep Vein Thrombosis/Pulmonary Embolism Present on Admission: No
[2019-08-25] MEDS: ENOXAPARIN 40 MG/0.4 ML SYRINGE SUBCUT (09:25)
[2019-08-25] MEDS: PANTOPRAZOLE 40 MG TABLET PO (09:25)
[2019-08-25] MEDS: SERTRALINE 50 MG TABLET 100 MG PO (09:25)
[2019-08-25] MEDS: TRIMETH/SULFA 160/800 (DS) TABLET 1 TAB PO (09:25)
[2019-08-25] MEDS: SCOPOLAMINE 1 PATCH TOP (09:25)
[2019-08-25] MEDS: INSULIN ASPART 100 UNIT/ML INSULN PEN SUBCUT ×4 (09:27→19:27)
[2019-08-25] MEDS: INSULIN GLARGINE 100 UNIT/ML 3ML PEN 33 UNIT SUBCUT ×2 (09:28→19:26)
--- NOTE | 2019-08-25 10:28 | OT.IP.TRT ---
Occupational Therapy Treatment Note M2 OT-IP Current Condition Start: 08/24/19 14:55 Freq: Status: Active Protocol: Document 08/24/19 13:36 PJM (Rec: 08/24/19 15:33 PJM [email or web address]) Occupational Therapy Current Condition Current Condition Evaluation Date 08/24/19 Treatment Diagnosis L hemiplegia s/p recent glioblastoma resection w/ vomiting,headache,weakness Diagnosis Onset Date 08/23/19 Post Operative Precautions Other Precautions high fall risk, L neglect M3 OT- IP Subjective and Pain Start: 08/24/19 14:55 Freq: Status: Active Protocol: Document 08/25/19 10:26 [facility] (Rec: 08/25/19 10:28 [facility] [id number]) OT- Subjective Occupational Therapy Visit Type Type Patient Refusal Notes Check on Pt with PT regarding getting up for therapy. Pt states just wanting to rest, refusing to get up, and states just had medication for feeling nauseous. When asked if she wanted to do any grooming and pt states, No I will do that later. To check on the pt later.
--- NOTE | 2019-08-25 12:07 | PT.IPTN ---
Physical Therapy Treatment Note M2 PT-IP Current Condition Start: 08/24/19 08:32 Freq: NEEDED Status: Active Protocol: Document 08/24/19 10:35 AW (Rec: 08/24/19 11:23 AW [id number]) Physical Therapy Current Condition Current Condition Evaluation Date 08/24/19 Treatment Diagnosis s/p craniotomy, weakness, difficulty in walking Weight Bearing Status Weight Bearing Status Full Weight Bearing M3 PT-IP Subjective Start: 08/24/19 08:32 Freq: NEEDED Status: Active Protocol: Document 08/25/19 12:02 AB (Rec: 08/25/19 12:07 AB [id number]) Subjective Physical Therapy Visit Type Type Patient Refusal Notes pt refused PT this morning. stated that she does not want to get up and get nauseated again. asked if she is nauseated when PT checked and stated that she is not and that she had nausea medication already but continues to refuse PT. will check again this afternoon. .
[2019-08-25] MEDS: ONDANSETRON 4 MG/2 ML INJ IV ×2 (13:27→21:07)
[2019-08-25] MEDS: SODIUM CHLORIDE 0.9% 1,000 ML 250 ML IV (13:50)
--- NOTE | 2019-08-25 15:22 | OT.IP.TRT ---
Occupational Therapy Treatment Note M2 OT-IP Current Condition Start: 08/24/19 14:55 Freq: Status: Active Protocol: Document 08/24/19 13:36 PJM (Rec: 08/24/19 15:33 PJM [email or web address]) Occupational Therapy Current Condition Current Condition Evaluation Date 08/24/19 Treatment Diagnosis L hemiplegia s/p recent glioblastoma resection w/ vomiting,headache,weakness Diagnosis Onset Date 08/23/19 Post Operative Precautions Other Precautions high fall risk, L neglect M3 OT- IP Subjective and Pain Start: 08/24/19 14:55 Freq: Status: Active Protocol: Document 08/25/19 15:21 [facility] (Rec: 08/25/19 15:22 [facility] [id number]) OT- Subjective Occupational Therapy Visit Type Type Patient Refusal Notes Pt not wanting to to get up for therapy when check on again in PM. Therefore to check on pt tomorrow for OT treatment.
--- NOTE | 2019-08-25 15:57 | PT.IPTN ---
Physical Therapy Treatment Note M2 PT-IP Current Condition Start: 08/24/19 08:32 Freq: NEEDED Status: Active Protocol: Document 08/24/19 10:35 AW (Rec: 08/24/19 11:23 AW [id number]) Physical Therapy Current Condition Current Condition Evaluation Date 08/24/19 Treatment Diagnosis s/p craniotomy, weakness, difficulty in walking Weight Bearing Status Weight Bearing Status Full Weight Bearing M3 PT-IP Subjective Start: 08/24/19 08:32 Freq: NEEDED Status: Active Protocol: Document 08/25/19 15:56 AB (Rec: 08/25/19 15:57 AB [id number]) Subjective Physical Therapy Visit Type Type Patient Refusal Notes Checked on pt again and pt is refusing PT. stated that she is just not feeling well. will f/u tomorrow.
--- NOTE | 2019-08-25 16:44 | CM.DPNOTE ---
DCP Cont: Reviewed chart. Spoke at length w/ Dr Yen today, then w/April at [facility]. According to Dr Yen, the plan remains for pt to DC to SNF for rehab, w/the goal that pt would regain enough strength to make it to her appt at [facility] for chemo. This is a palliative measure according to Dr Yen and will assist in symptom relief. This BUSINESS APPLICATIONS SPECIALIST asks Dr Yen if anyone has discussed goals of care w/pt and educated her about typical disease progression for Glioblastoma? Met w/pt and Dr Yen this afternoon, Dr Yen will attempt to connect w/ Dr Hathaway. 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 Reviewed what pt wants for herself? to not be nauseous what is her goal for when she leaves the hospital? to live. Pt mentions her young grandchildren and says she would like to continue to live for them. Pt says she stopped taking her home meds because I forgot and stopped eating/drinking d/t the nausea. This BUSINESS APPLICATIONS SPECIALIST explained to pt/family and Dr Yen that [facility] has accepted pt but it will likely be a lengthy process to get an auth, if they can get an auth, and they will ask [facility] for an additional single case agreement on top of the initial auth. Placed call to Aimee at [facility]; explained that pt/family were interested in Info Visit only and Aimee suggested this be done at [facility], if she goes there, since pt is not interested in Hospice at this time and they don't know when they could open her for service in [place]. [facility] might be an alternative if pt/family become more interested in Hospice. P: DC likely to [facility] if auth can be secured. No safe home plan at this time d/t pt's severe weakness and no 24/7 assist available at home, especially w/o Hospice service to assist in medication management and other supportive measures. Following closely for coordination of the safest plan available to pt. LIBIA Khan
[2019-08-26] VITALS (10 sets, daily range): BP systolic 130–159; BP diastolic 84–110; PULSE 67–78; RESP 10–16; TEMP 35.6–36.3; O2SAT 96–98
[2019-08-26] MEDS: SODIUM CHLORIDE 0.9% FLUSH 10 ML IV (00:05)
--- NOTE | 2019-08-26 05:25 | PC.NURSE ---
Pt denies headache, neuro assessment remains stable. Left sided weakness, leans to left side when sitting up in bed. Pt weak and OOB w/ PT only. Pt nauseated with vomiting in past two when trying to get OOB, scope patch in place behind right ear. Pt states PO intake decreased, confirms she was instructed to eat low sodium foods and she likes lots of salt on my food. Pt said she is going to try to eat more toast and jam throughout day. Pt on carb consistent diet. Will offer zofran this morning in anticipation of pt better able to tolerate breakfast. Pt with HTN 150/90's. HR 70's. Will con't to monitor and report to provider if con't to be elevated.
[2019-08-26] MEDS: ONDANSETRON 4 MG ODT 8 MG PO (06:16)
[2019-08-26] MEDS: SERTRALINE 50 MG TABLET 100 MG PO (10:18)
[2019-08-26] MEDS: ENOXAPARIN 40 MG/0.4 ML SYRINGE SUBCUT (10:21)
[2019-08-26] MEDS: PANTOPRAZOLE 40 MG TABLET PO (10:23)
[2019-08-26] MEDS: dexAMETHasone 4 MG TABLET PO ×2 (10:23→21:15)
[2019-08-26] MEDS: INSULIN GLARGINE 100 UNIT/ML 3ML PEN 20 UNIT SUBCUT ×2 (10:24→21:16)
--- NOTE | 2019-08-26 11:32 | PM.PN.1 ---
Subjective Subjective Date Patient Seen: 08/26/19 Time Patient Seen: 10:30 Interval history: Patient remains nauseated at times though states Zofran and Compazine help nausea. She has little appetite. This morning she was hypoglycemic after an increase in her insulin yesterday. She denies pain this morning. She is interested in speaking with hospice but still plans to continue her chemotherapy. Exam Vital Signs (past 8 hours): - 08/26/19 08:28 08/26/19 09:00 Temperature 96.1 F L Pulse Rate 68 Respiratory Rate 16 Blood Pressure 130/84 Pulse Oximetry 96 96 Oxygen Delivery Method Room Air Oxygen Flow Rate 0 Narrative Exam Narrative: General: Chronically ill-appearing female wished shaved head, no acute distress Heart: Regular rate and rhythm, no murmurs appreciated Lungs: Clear to auscultation bilaterally, no wheezes, rales or rhonchi Abd: Bowel tones active, soft, nontender Extremities: Warm, no edema Objective Labs Result Diagrams: 08/24/19 05:30 08/24/19 05:30 Assessment & Plan Assessment and plan (1) Glioblastoma multiforme of parietal lobe: Problem details: right partially resected Current visit: No Status: Acute (2) Weakness: Current visit: Yes Status: Acute (3) Vomiting: Qualifiers: Nausea presence: with nausea Vomiting Intractability: non-intractable Vomiting type: unspecified Qualified Code(s): R11.2 - Nausea with vomiting, unspecified Current visit: No Status: Acute (4) Uncontrolled diabetes mellitus type 2 without complications: Current visit: No Status: None Assessment & Plan narrative: Glioblastoma multiforme s/p craniotomy with partial removal of tumor: Please refer to Dr. Yen's past notes. Patient is interested in speaking with hospice for an informational visit only. She does plan to continue physical therapy but does not believe she has any other treatment options. Nausea: Continue scopalamine and Zofran Headache: Known cerebral edema. Improved with hydration and resuming dexamethasone. Diabetes: Hypoglycemia today, will decrease Lantus 20 units BID. Likely will need more but she is eating very little. Infection: No obvious source. Normal WBC. No fever. Will monitor. Will continue her PO sertraline and bactrim if she can tolerate any PO at all. Zofran might help. Code status: DNR DVT prophylaxis: kvng Spoke with Care Management today. They will see about arranging a hospice visit while she is here. Authorization for half-way unlikely to be completed this weekend. Time Spent With Patient Time with patient: Greater than 35 minutes Quality VTE Deep Vein Thrombosis/Pulmonary Embolism Present on Admission: No
--- NOTE | 2019-08-26 13:00 | PT.IPTN ---
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) Type 2 diabetes mellitus with hyperglycemia (08/23/19) Nausea with vomiting, unspecified (08/23/19) Weakness (08/23/19) Physical Therapy Treatment Note M2 PT-IP Current Condition Start: 08/24/19 08:32 Freq: NEEDED Status: Active Protocol: Document 08/24/19 10:35 AW (Rec: 08/24/19 11:23 AW [id number]) Physical Therapy Current Condition Current Condition Evaluation Date 08/24/19 Treatment Diagnosis s/p craniotomy, weakness, difficulty in walking Weight Bearing Status Weight Bearing Status Full Weight Bearing M3 PT-IP Subjective Start: 08/24/19 08:32 Freq: NEEDED Status: Active Protocol: Document 08/26/19 12:59 CLB (Rec: 08/26/19 13:00 CLB [id number]) Subjective Physical Therapy Visit Type Type Patient Refusal Notes Pt asleep upon arrival. Pt stated she was very sleepy and fatigued and did not want to get up but wanted to sleep. Will check back with pt tomorrow.
[2019-08-26] MEDS: ONDANSETRON 4 MG/2 ML INJ IV ×2 (14:20→21:19)
--- NOTE | 2019-08-26 15:31 | OT.IPNOTE ---
Attempted to see pt x 2 today. Pt reports nausea and fatigue and requests to not participate in therapy at this time. Will continue to follow.
--- NOTE | 2019-08-26 15:36 | PT.IPTN ---
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) Type 2 diabetes mellitus with hyperglycemia (08/23/19) Nausea with vomiting, unspecified (08/23/19) Weakness (08/23/19) Physical Therapy Treatment Note M2 PT-IP Current Condition Start: 08/24/19 08:32 Freq: NEEDED Status: Active Protocol: Document 08/24/19 10:35 AW (Rec: 08/24/19 11:23 AW [id number]) Physical Therapy Current Condition Current Condition Evaluation Date 08/24/19 Treatment Diagnosis s/p craniotomy, weakness, difficulty in walking Weight Bearing Status Weight Bearing Status Full Weight Bearing M3 PT-IP Subjective Start: 08/24/19 08:32 Freq: NEEDED Status: Active Protocol: Document 08/26/19 15:36 AB (Rec: 08/26/19 15:36 AB [id number]) Subjective Physical Therapy Visit Type Type Patient Refusal Notes pt continues to refuse PT. stated that she is still not feeling well.
[2019-08-26] MEDS: METFORMIN HCL 500 MG TABLET 1000 MG PO (21:15)
[2019-08-27] VITALS (9 sets, daily range): BP systolic 110–154; BP diastolic 70–104; PULSE 62–88; RESP 14–18; TEMP 36.1–36.8; O2SAT 96–98
[2019-08-27] MEDS: SODIUM CHLORIDE 0.9% FLUSH 10 ML IV (00:41)
[2019-08-27] MEDS: ENOXAPARIN 40 MG/0.4 ML SYRINGE SUBCUT (08:41)
[2019-08-27] MEDS: TRIMETH/SULFA 160/800 (DS) TABLET 1 TAB PO (08:41)
[2019-08-27] MEDS: INSULIN ASPART 100 UNIT/ML INSULN PEN SUBCUT ×2 (08:42→11:55)
[2019-08-27] MEDS: INSULIN GLARGINE 100 UNIT/ML 3ML PEN 20 UNIT SUBCUT (08:43)
[2019-08-27] MEDS: ONDANSETRON 4 MG/2 ML INJ IV ×2 (09:02→17:08)
--- NOTE | 2019-08-27 10:06 | P.PN_ITS ---
Subjective Subjective Date Patient Seen: 08/27/19 Time Patient Seen: 08:45 Interval history: Patient reports feeling quite nauseated this morning. She slept well last night but remains very tired. She denies pain anywhere. She was not seen by hospice or social work yesterday. Plan [facility] she has [facility]. Exam Vital Signs (past 8 hours): - 08/27/19 06:22 08/27/19 08:00 08/27/19 09:00 Temperature 97.7 F 98.1 F Pulse Rate 62 69 Respiratory Rate 18 14 Blood Pressure 144/92 H 153/92 H Pulse Oximetry 98 97 97 Oxygen Delivery Method Room Air Oxygen Flow Rate 0 Narrative Exam Narrative: General: Chronically ill-appearing female, appears uncomfortable and quite depressed this morning. Speaks little but answers questions appropriately. Heart: Regular rate and rhythm, no murmurs appreciated Lungs: Clear to auscultation bilaterally, no wheezes, rales or rhonchi Extremities: Warm, no edema Objective Labs Result Diagrams: 08/24/19 05:30 08/24/19 05:30 Assessment & Plan Assessment and plan (1) Glioblastoma multiforme of parietal lobe: Problem details: right partially resected Current visit: No Status: Acute (2) Weakness: Current visit: Yes Status: Acute (3) Vomiting: Qualifiers: Nausea presence: with nausea Vomiting Intractability: non-intractable Vomiting type: unspecified Qualified Code(s): R11.2 - Nausea with vomiting, unspecified Current visit: No Status: Acute (4) Uncontrolled diabetes mellitus type 2 without complications: Current visit: No Status: None Assessment & Plan narrative: Glioblastoma multiforme s/p craniotomy with partial removal of tumor: Please refer to Dr. Yen's past notes. No new issues. Nausea: Worse this morning after taking some of her pills. She did tolerate a couple bites of breakfast. Continue scopalamine and Zofran. Headache: Known cerebral edema. Improved with hydration and resuming dexamethasone. Diabetes: Blood sugars improved. Will continue Lantus 20 units b.i.d.. Restarted metformin yesterday. Infection: No obvious source. Normal WBC. No fever. Will monitor. Continue Ba ctrim. She currently takes sertraline and may benefit from a dose increase. Will defer to PCP. She appeared quite depressed today though was very nauseated at the time. Code status: DNR DVT prophylaxis: kvng Spoke with Care Management today. They will contact hospice [facility] for [facility] and on [facility]. Plan remains for her to go to [facility] once authorization is obtained. Time Spent With Patient Time with patient: Greater than 35 minutes Quality VTE Deep Vein Thrombosis/Pulmonary Embolism Present on Admission: No
--- NOTE | 2019-08-27 14:02 | CM.DPC ---
DCP Cont: Per MD, pt continues to have nausea and continues to want to pursue treatment prior to considering Hospice/Palliative Care and preference is [facility] at d/c since her Dtr works there. [facility] working on insurance auth for SNF but [facility] closed on the weekends and so no auth available today as its Wednesday. Per previous SW note, [facility] could likely complete [facility] Visit at SNF due to their current pt acuity and recommend calling [facility] as pt resides in [place]. MEL called [facility] and left a msg as they are not fully staffed on the weekend and requested call back to set up Info Visit with pt. MEL faxed clinicals to [facility] in anticipation of info visit. SW updated PT and MD that pt will need to at least attempt and somewhat participate in therapies for insurance to even consider authorizing SNF stay. Pt has declined to participate in PT/OT the past two days due to nausea and fatigue. MD states she will encourage pt to participate in therapy today. Per RN, pt has eaten very little today and not taken some of her meds as she has mostly slept today. MEL attempted to meet bedside with pt but could not wake pt up. PT still pending and PT will attempt this afternoon. Plan: MEL to follow closely for PT attempt this afternoon to work with pt and return call from [facility] and hopeful insurance auth for [facility] on Wednesday. PASRR done. LIBIA Roque
--- NOTE | 2019-08-27 16:41 | PT.IPTN ---
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) Type 2 diabetes mellitus with hyperglycemia (08/23/19) Nausea with vomiting, unspecified (08/23/19) Weakness (08/23/19) Physical Therapy Treatment Note M2 PT-IP Current Condition Start: 08/24/19 08:32 Freq: NEEDED Status: Active Protocol: Document 08/24/19 10:35 AW (Rec: 08/24/19 11:23 AW [id number]) Physical Therapy Current Condition Current Condition Evaluation Date 08/24/19 Treatment Diagnosis s/p craniotomy, weakness, difficulty in walking Weight Bearing Status Weight Bearing Status Full Weight Bearing M3 PT-IP Subjective Start: 08/24/19 08:32 Freq: NEEDED Status: Active Protocol: Document 08/27/19 16:29 AW (Rec: 08/27/19 16:40 AW [id number]) Subjective Physical Therapy Visit Type Type Treatment Note Visit Start Time 15:30 Visit Stop Time 15:45 Total Visit Minutes 15 Notes Pt sleeping but rousable Number of FISHERIES ENFORCEMENT OFFICER Visits 0 Physical Therapy Visit Comments Patient Comments Pt willing to participate with PT M4 PT-IP Mobility and Gait Start: 08/24/19 08:32 Freq: NEEDED Status: Active Protocol: Document 08/27/19 16:29 AW (Rec: 08/27/19 16:40 AW [id number]) PT-Bed Mobility Assessment Rolling Type of Rolling Log Rolling,Roll to Left Level of Assist Minimal Assistance Supine to Sit Supine to Sit Moderate Assistance,1 Person Assistance,Bedrails Sit to Supine Sit to Supine Moderate Assistance,1 Person Assistance Scooting Scooting to Edge of Bed Minimal Assistance PT-Transfer Assessment Comments Mobility Comments Pt required mod assist to transfer to edge of bed with bed flat. In sitting with legs dangling, she leaned left and was unable to find midline without assistance. Once sitting upright, she immediately felt dizzy, nauseated, and like I'm going to fall forward. Pt sat flexed forward and was unable to sit upright again without assist. She then insisted she needed to lie down and was unable to participate any further. BP in supine was 139/ 113; in sitting 154/104. She was placed in trendelenburg position until symptoms reduced and then left in flat bed with bed alarm armed and call light within reach. Communicated session to nursing. Gait Assessment Comments Gait Comments unable M5 PT-IP Objective Assessments Start: 08/24/19 08:32 Freq: NEEDED Status: Active Protocol: Document 08/24/19 10:35 AW (Rec: 08/24/19 11:23 AW [id number]) Orientation Orientation/Cognition Level of Alertness Alert Orientation Name,Day of Week,Place, Situation Language Function Ability No Deficits Noted Safety Awareness Understands Safety Issues Memory Description No Deficits Noted Comments Pt appeared to be an accurate historian. No word-finding difficulties observed. Gross Range of Motion Upper Extremity ROM Assessment Left Impaired Impairments L shoulder flexion ~105 degrees AROM. Full PROM without pain or restriction Lower Extremity ROM Assessment Bilaterally Impaired Strength Upper Extremity Strength Assessment Bilaterally Impaired Lower Extremity Strength Assessment Bilaterally Impaired Comments Strength Comments RUE 4-/5 LUE 3/5 RLE 4-/5 LLE 3/5 Coordination Assessment Gross Coordination Gross Coordination Impaired Assessment Finger to Nose Test Moderate Impairment Heel on Deluca Test Normal Performance Coordination Comments Signs of dysmetria on finger to nose testing with LUE, requiring extra time and with missed targets >2 cm. Sensation Assessment Sensation Gross Sensation Left UE Impaired,Left LE Impaired Light Touch Impaired Sensation Description Numbness Comments Sensation Comments Light touch sensation impaired LUE/LLE on exam with no identifiable pattern or distribution. Other Assessments Other Other Assessments Pt has notable atrophy of BLE M6 PT-IP Treatment Start: 08/24/19 08:32 Freq: NEEDED Status: Active Protocol: Document 08/24/19 10:35 AW (Rec: 08/24/19 11:23 AW [id number]) Physical Therapy Treatment Education Education Provided Safety M7 PT-IP Assessment and Plan Start: 08/24/19 08:32 Freq: NEEDED Status: Active Protocol: Document 08/27/19 16:29 AW (Rec: 08/27/19 16:40 AW [id number]) PT Summary Assessment and Plan Summary Assessment Summary Pt continues to require mod assist for all bed mobility . She is limited by weakness, dizziness, and nausea with mobility. She continues to be a good candidate for SNF rehab in the short term. Goals Bed Mobility Goal Standby Assistance Transfer Goal Contact Guard Assistance Gait Goal Contact Guard Assistance Gait Distance 100 feet Other Goals up/down two stairs with left rail ascending CGA Days to Meet Goals 10 Frequency of Treatment Frequency Of Treatment Once a Day Treatment Plan Physical Therapy Treatment Plan Bed Mobility Training,Transfer Training,Gait Training, Therapeutic Exercise,Balance Retraining,Discharge Planning, Hot or Cold Pack,Neuromuscular Re-ed,Coordination Retraining ,Manual Therapy Recommendations To Nursing Amount of Assist Needed 2 Person Assist,3 or More Person Assist Discharge Recommendations PT Discharge Recommendations SNF Rehab,LTAC
[2019-08-27] MEDS: dexAMETHasone 4 MG TABLET PO (20:42)
[2019-08-28] VITALS (10 sets, daily range): BP systolic 123–148; BP diastolic 92–105; PULSE 77–92; RESP 14–18; TEMP 36.2–36.9; O2SAT 94–98
[2019-08-28] MEDS: ONDANSETRON 4 MG ODT 8 MG PO (05:20)
[2019-08-28] MEDS: SODIUM CHLORIDE 0.9% FLUSH 10 ML IV ×3 (05:41→21:31)
--- NOTE | 2019-08-28 05:43 | PC.NURSE ---
Attempted to start IV in right arm x2. Unsuccessful. Left AC infiltrated, not red or tender. Will con't to attempt new IV start.
[2019-08-28] MEDS: INSULIN GLARGINE 100 UNIT/ML 3ML PEN 20 UNIT SUBCUT ×2 (09:09→21:24)
[2019-08-28] MEDS: ENOXAPARIN 40 MG/0.4 ML SYRINGE SUBCUT (09:09)
--- NOTE | 2019-08-28 09:38 | PM.PN.1 ---
Subjective Subjective Date Patient Seen: 08/28/19 Time Patient Seen: 08:38 Interval history: Patient sleeping this morning easily arousable. just wants to sleep. Denies nausea. Exam Vital Signs (past 8 hours): - 08/28/19 05:50 08/28/19 08:44 Temperature 97.2 F L 97.6 F Pulse Rate 77 78 Respiratory Rate 16 16 Blood Pressure 142/92 H 133/92 H Pulse Oximetry 96 97 Oxygen Delivery Method Room Air Oxygen Flow Rate 0 Narrative Exam Narrative: General: Chronically ill-appearing female wished shaved head, no acute distress, truncal obesity with muscle wasting in her arms and legs Head: hair is shaved with a small amout of regrowth, cranotomy incision is well healed Heart: Regular rate and rhythm, no murmurs appreciated Lungs: Clear to auscultation bilaterally, no wheezes, rales or rhonchi Abd: Bowel tones active, soft, nontender Extremities: Warm, no edema Objective Labs Result Diagrams: 08/24/19 05:30 08/24/19 05:30 Assessment & Plan Assessment & Plan narrative: Glioblastoma multiforme s/p craniotomy with partial removal of tumor: Discussed her care with Dr. Bernal, he has talked to Dr. Beatty who will arrange for bevacizumab infusion today. This is supposed to enable her to decrease dexamethasone and gain better blood glucose control. For some reason patient declined hospice informational visit over the weekend. Her memory isn't very good so she may have forgot that she agreed to this on Wednesday with daughter, Rhonda, present for our discussion. Her understanding of hospice is limited. Will see how she does with infusion today. Nausea: Continue scopalamine and Zofran, will resume compazine and lorazepam to see if we can get this better controlled. Headache: Known cerebral edema. Improved with hydration and resuming dexamethasone. Her dexamethasone is critical. If unable to get it PO she should get it IV. Diabetes: Hypoglycemia today, will decrease Lantus 20 units BID. Likely will need more but she is eating very little. Infection: No obvious source. Normal WBC. No fever. Will monitor. Will continue her PO sertraline and bactrim if she can tolerate any PO at all. Code status: DNR DVT prophylaxis: kvng Spoke with Care Management today. Will see if [facility] can accept either later today or tomorrow. Quality VTE Deep Vein Thrombosis/Pulmonary Embolism Present on Admission: No
--- NOTE | 2019-08-28 09:59 | ONC.SCHED ---
NO prior [facility] ref # [id number]
[2019-08-28] MEDS: PROCHLORPERAZINE 10 MG/2 ML VIAL 5 MG IV (10:27)
[2019-08-28] MEDS: DEXAMETHASONE 4 MG/ML VIAL IV ×2 (11:12→17:52)
--- NOTE | 2019-08-28 11:19 | PT.IPTN ---
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) Type 2 diabetes mellitus with hyperglycemia (08/23/19) Nausea with vomiting, unspecified (08/23/19) Weakness (08/23/19) Physical Therapy Treatment Note M2 PT-IP Current Condition Start: 08/24/19 08:32 Freq: NEEDED Status: Active Protocol: Document 08/24/19 10:35 AW (Rec: 08/24/19 11:23 AW [id number]) Physical Therapy Current Condition Current Condition Evaluation Date 08/24/19 Treatment Diagnosis s/p craniotomy, weakness, difficulty in walking Weight Bearing Status Weight Bearing Status Full Weight Bearing M3 PT-IP Subjective Start: 08/24/19 08:32 Freq: NEEDED Status: Active Protocol: Document 08/28/19 11:06 CLB (Rec: 08/28/19 12:53 CLB [id number]) Subjective Physical Therapy Visit Type Type Treatment Note Visit Start Time 11:06 Visit Stop Time 11:19 Total Visit Minutes 13 Notes Co-treated with OT Susan. Number of JOB ORDER CLERK Visits 1 Physical Therapy Visit Comments Patient Comments Pt willing to participate with PT M4 PT-IP Mobility and Gait Start: 08/24/19 08:32 Freq: NEEDED Status: Active Protocol: Document 08/28/19 11:06 CLB (Rec: 08/28/19 12:53 CLB [id number]) PT-Bed Mobility Assessment Supine to Sit Supine to Sit Maximum Assistance,2 Person Assistance,Head of Bed Elevated Sit to Supine Sit to Supine Maximum Assistance,2 Person Assistance Scooting Scooting to Edge of Bed Maximum Assistance PT-Transfer Assessment Comments Mobility Comments Pt required increased assist with bed mobility and was unable to tolerate more than 10 seconds on EOB before feeling dizzy like she is going to pass out. Pt however was able to keep herself upright w/o assist with slight forward flx. Pt required Max assist scooting up in bed. Pt BP in supine 148/105. Left pt in bed with alarm on and all needs within reach. Gait Assessment Comments Gait Comments unable M5 PT-IP Objective Assessments Start: 08/24/19 08:32 Freq: NEEDED Status: Active Protocol: Document 08/24/19 10:35 AW (Rec: 08/24/19 11:23 AW [id number]) Orientation Orientation/Cognition Level of Alertness Alert Orientation Name,Day of Week,Place, Situation Language Function Ability No Deficits Noted Safety Awareness Understands Safety Issues Memory Description No Deficits Noted Comments Pt appeared to be an accurate historian. No word-finding difficulties observed. Gross Range of Motion Upper Extremity ROM Assessment Left Impaired Impairments L shoulder flexion ~105 degrees AROM. Full PROM without pain or restriction Lower Extremity ROM Assessment Bilaterally Impaired Strength Upper Extremity Strength Assessment Bilaterally Impaired Lower Extremity Strength Assessment Bilaterally Impaired Comments Strength Comments RUE 4-/5 LUE 3/5 RLE 4-/5 LLE 3/5 Coordination Assessment Gross Coordination Gross Coordination Impaired Assessment Finger to Nose Test Moderate Impairment Heel on Deluca Test Normal Performance Coordination Comments Signs of dysmetria on finger to nose testing with LUE, requiring extra time and with missed targets >2 cm. Sensation Assessment Sensation Gross Sensation Left UE Impaired,Left LE Impaired Light Touch Impaired Sensation Description Numbness Comments Sensation Comments Light touch sensation impaired LUE/LLE on exam with no identifiable pattern or distribution. Other Assessments Other Other Assessments Pt has notable atrophy of BLE M6 PT-IP Treatment Start: 08/24/19 08:32 Freq: NEEDED Status: Active Protocol: Document 08/24/19 10:35 AW (Rec: 08/24/19 11:23 AW [id number]) Physical Therapy Treatment Education Education Provided Safety M7 PT-IP Assessment and Plan Start: 08/24/19 08:32 Freq: NEEDED Status: Active Protocol: Document 08/28/19 11:06 CLB (Rec: 08/28/19 12:53 CLB [id number]) PT Summary Assessment and Plan Summary Assessment Summary Pt remains limited by weakness needing increased assist with bed mobility and was unable to tolerate more that 10 seconds of sitting before feeling dizzy and wanting to return to supine. Goals Bed Mobility Goal Standby Assistance Transfer Goal Contact Guard Assistance Gait Goal Contact Guard Assistance Gait Distance 100 feet Other Goals up/down two stairs with left rail ascending CGA Days to Meet Goals 10 Frequency of Treatment Frequency Of Treatment Once a Day Treatment Plan Physical Therapy Treatment Plan Bed Mobility Training,Transfer Training,Gait Training, Therapeutic Exercise,Balance Retraining,Discharge Planning, Hot or Cold Pack,Neuromuscular Re-ed,Coordination Retraining ,Manual Therapy Other Recommendations and Next Treatment transfers Focus Recommendations To Nursing Amount of Assist Needed 2 Person Assist Discharge Recommendations PT Discharge Recommendations SNF Rehab,LTAC Equipment Needed for Home Before BSC if discharged to home. Discharge
--- NOTE | 2019-08-28 11:24 | PC.NURSE ---
Addendum entered by Masha Jennings R.N. 08/28/19 13:29: GI/CHEMO - pt underlying nausea continues, per oncololgy planning admin chem med now that midline has been placed at approx 1345, given the 1mg iv ativan and also 4mg iv zofran. Addendum entered by Masha Jennings R.N. 08/28/19 12:01: MEDS - Dr. Yen notifed plan for chemo, coordinator arranging with DI for midline placement, new order scopalamine patch, placed. Original Note: AM - pt drowsy, awakens easily, soft spoken, reports continued ongoing nausea, when Dr. Yen in, discussed and new orders rec'd, given iv compazine, pt unable to swallow medications this am due nausea, Dr. Thompson oncology will admin chemo, will need arrange midline iv access, iv dexamethasone changed from po to iv and ordered 1mg ativan prior to admin chemo, later phys and occup therapy, pt able to dangle briefly, unable to stand and ret bed due to dizziness, repositioned for comfort.
[2019-08-28] MEDS: SCOPOLAMINE 1 PATCH TOP (12:04)
--- NOTE | 2019-08-28 12:11 | OT.IP.TRT ---
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) Type 2 diabetes mellitus with hyperglycemia (08/23/19) Nausea with vomiting, unspecified (08/23/19) Weakness (08/23/19) Occupational Therapy Treatment Note M2 OT-IP Current Condition Start: 08/24/19 14:55 Freq: Status: Active Protocol: Document 08/24/19 13:36 PJM (Rec: 08/24/19 15:33 PJM [email or web address]) Occupational Therapy Current Condition Current Condition Evaluation Date 08/24/19 Treatment Diagnosis L hemiplegia s/p recent glioblastoma resection w/ vomiting,headache,weakness Diagnosis Onset Date 08/23/19 Post Operative Precautions Other Precautions high fall risk, L neglect M3 OT- IP Subjective and Pain Start: 08/24/19 14:55 Freq: Status: Active Protocol: Document 08/28/19 11:53 CCC (Rec: 08/28/19 12:10 CCC [email or web address]) OT- Subjective Occupational Therapy Visit Type Type Treatment Note Visit Start Time 11:06 Visit Stop Time 11:19 Occupational Therapy Visit Comments Patient Comments Pt willing to try to get up with OT/TAP AND DIE MAKER 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 OT Pain Assessment Pain When Pain Assessed After Treatment Pain Present Pain Present Denied Pain M4 OT- IP ADL's Start: 08/24/19 14:55 Freq: Status: Active Protocol: Document 08/24/19 13:36 PJM (Rec: 08/24/19 15:33 PJM [id number]) OT KVG-Jiuo-Tcmideq General Evaluation Self-Feeding Ability Independent Areas Needing Assistance Cutting Food,Opening Containers Comments OT Self-Feeding Comments poor appetite for lunch today OT ADL-Grooming General Evaluation Grooming Ability Standby Assistance Areas Needing Assistance Retrieving/Set-up of Grooming Items,Face Washing,Glasses OT ADL-Oral Care General Eval Oral Care Ability Minimal Assistance Areas of Assistance Retrieving/Set-Up of Items Devices Oral Care Devices Toothbrush Comments Oral Care Comments Pt needs min verbal cues to sequence set up of toothbrush and neglects items in L hand until verbal cues given. OT ADL-Dressing General Eval Upper Body Dressing Ability Moderate Assistance Lower Body Dressing Ability Total Assistance Comments OT Dressing Comments mod assist with gown change in bed after vomiting OT ADL-Toileting General Evaluation Toileting Ability Total Assistance Areas Needing Assistance Empty Catheter or Colostomy Comments OT Toileting Comments tejeda in place OT ADL-Bathing Bathing Type Bathing Type Bed Bath General Evaluation Bathing Ability Maximal Assistance M5 OT- IP IADL's Start: 08/24/19 14:55 Freq: Status: Active Protocol: Document 08/24/19 13:36 PJM (Rec: 08/24/19 15:33 PJM [email or web address]) OT-Instrumental Activities of Daily Living Deficits IADL Deficits Identified Deficits Home Safety Awareness Awareness of Need for Assistance at Home Decreased Awareness Medication Management Medication Management Caregiver Administers Medication Management Comments daughter, anthony Ellis pt's meds Money Management Money Management Caregiver Provides Assistance Money Management Comments father assists pt with finances Meal Preparation Meal Preparation Caregiver Provides Assist Meal Preparation Comments family provides assist Substitute Teacher Substitute Teacher Caregiver Provides Assist Substitute Teacher Comments family provides assist Driving Driving Caregiver Provides Assist Driving Comments family provides assist M6 OT- IP Functional Cognition Start: 08/24/19 14:55 Freq: Status: Active Protocol: Document 08/24/19 13:36 PJM (Rec: 08/24/19 15:33 PJM [email or web address]) Cognitive Factors Limiting Selfcare Function Cognitive Ability Level of Alertness Alert Patient Orientation Name,Year,Place Attention Span Ability Capable of Focused Attention Ability to Follow Commands Able to Follow One Step Commands Memory Description Short Term Impaired Safety Awareness Underestimates Need for Assistance Problem Solving Ability Unable to Identify Errors, Needs Assist to Identify Solutions Executive Function Ability Unable to Remember Details Cognitive Comments Cognitive Assessment Comments Results of cognitive screen to follow OT- Vision and Hearing OT- Hearing Assessment OT- Hearing Assessment WFL OT- Vision Assessment Visual Acuity Glasses All The Time Visual Attentiveness WFL Occular Pursuits WFL Visual Nascimento Impaired Visual Spacial Neglect Left Vision Assessment Comments Pt has L homonymous hemianopsia with L visual spatial and LUE neglect noted. M7 OT- IP Mobility and Balance Start: 08/24/19 14:55 Freq: Status: Active Protocol: Document 08/28/19 11:53 CCC (Rec: 08/28/19 12:10 CCC [email or web address]) OT- Bed Mobility Assessment Supine to Sit Supine to Sit Assist Maximum Assistance,2 Person Assistance Sit to Supine Sit to Supine Assist Maximum Assistance,2 Person Assistance OT-Transfer Assessment Comments Mobility Comments Pt only able to tolerate sitting at edge of bed for 10 seconds before feeling nauseous and wanting to lie back down. OT- Gait Assessment Comments Gait Ability Comments pt non ambulatory at present OT- Balance Assessment Sitting Balance and Reactions Static Sitting Balance Ability Fair M8 OT- IP Objective Assessments Start: 08/24/19 14:55 Freq: Status: Active Protocol: Document 08/24/19 13:36 PJM (Rec: 08/24/19 15:33 PJM [id number]) OT Gross Range of Motion Upper Extremity Range of Motion Assessment Left Impaired ROM Impairments Pt has decreased isolated AROM in L shoulder to about 100 degrees scaption. AROM WFL distally but slowed compared to RUE. LUE neglect noted duirng BUE AROM. OT Strength Upper Extremity Strength Assessment Left Impaired Shoulder 4-/5 scaption Elbow 4/5 flex, 4/5 ext Wrist 4/5 Hand 4-/5 Hand Shipping Manager Strength Hand Dominance Mixed Comments Strength Comments Pt states she is now using R hand dominantly. She used B hands prior to surgery. OT- Coordination Assessment Upper Extremity Finger to Nose Test Left UE Impaired Finger Tapping Test Left UE Impaired Comments Coordination Comments LUE rapid alternating movements significantly slowed compared to R with mild dysmetria noted OT-Muscle Tone Assessment Muscle Tone WNL Yes OT Sensation Assessment Location Left Arm Light Touch Absent Deep Pressure Intact/Normal Sensation Description Numbness Comments Summary Comments Pt has decreased LUE sensation which contributes to LUE neglect Edema Edema Absent M9 OT- IP Assessment and Plan Start: 08/24/19 14:55 Freq: Status: Active Protocol: Document 08/28/19 11:53 [facility] (Rec: 08/28/19 12:10 [facility] [email or web address]) OT Summary Assessment and Plan Summary OT Impairments Range of Motion,Strength, Balance,Coordination,Sensation ,Functional Cognition, Functional Mobility,Grooming, Dressing,Toileting,Bathing, Toilet Transfers,Shower Transfers Progress Towards Goals Slow Progress due to Medical Issues,Slow Progress due to Activity Tolerance Assessment Summary Pt now able to tolerate sitting to edge of yesterday and today. However not able to attempt to stand due to being nauseous. Continue to attempt OT treatment to try to progress pt to stand, work on visual needs and ADL's. Frequency of Treatment Frequency Of Treatment Once a Day Treatment Plan OT Treatment Plan ADL Training,Functional Cognition Training,Functional Mobility,Neuromuscular Re- education,Vision Retraining, Patient/Family Education, Discharge Planning Discharge Recommendations OT Discharge Recommendations SNF Rehab,LTAC Other Discharge Recommendations Pending progress, medically stability and authorization, pt's disposition not clear at this time. Pt wanting to pursue treatment prior to considering Hospice per case management note.
[2019-08-28] MEDS: LORazepam 2 MG/ML INJ 1 MG IV (13:02)
[2019-08-28] MEDS: ONDANSETRON 4 MG/2 ML INJ IV (13:08)
[2019-08-28] MEDS: SODIUM CHLORIDE 0.9% 100 ML 21 ML IV (14:20)
[2019-08-28] MEDS: BEVACIZUMAB IV (14:23)
[2019-08-28] MEDS: SODIUM CHLORIDE 0.9% IV (14:23)
--- NOTE | 2019-08-28 14:27 | PC.NURSE ---
Addendum entered by Re De La Fuente R.N. 08/28/19 15:57: pt's daughter, Carley here. chemo consent signed with pt awake and states she understands. answered questions. reviewed side effects, chemo precautions. Original Note: pt somulent; wakes up easily and answers questions appropriately. verbalizes understanding of this RN starting infusion of Avastin over 90 min via ARIELLE midline. +blood return. pt denies pain or nausea at this time. reviewed chemo consent with pt; she verbalized understanding and stated to call her daughter Carley to review with her. labs last done on 08/24/19. Dr. Beatty notified and ordered to go ahead with Avastin administration.
[2019-08-28] MEDS: INSULIN ASPART 100 UNIT/ML INSULN PEN SUBCUT ×2 (16:56→21:25)
--- NOTE | 2019-08-28 21:15 | PC.NURSE ---
Addendum entered by Trisha Harden R.N. 08/28/19 22:43: low urine output 175cc-clear lesly. poor fluid intake. Original Note: Pt denied nausea and tolerated her dinner tonight. She ate 50% of her meal. q2turn. tejeda patent. encouraged pt to drink fluids. call light in reach. bed alarm active.
--- NOTE | 2019-08-28 21:20 | ONC.PN ---
PN -Subjective Interval history: ID/CC: 49 year old female with glioblastoma. Oncology History: 49 year old female presented with severe headache and loss of left visual field in Feb 2019. MR brain on 02/21/2019 at [facility] showed irregular peripherally enhancing 6 x 5 x 5 cm right parieto-occipital mass involving the atrium of the right lateral ventricle. On 02/25/2019, she underwent subtotal resection. Path showed glioblastoma, WHO grade 4, IDH 1/2 wild type, MGMT gene promoter methylation note detected, pathogenic TERT mutation identified. Postoperative MR on 02/27/2019 showed residual disease along anterior resection cavity. She then underwent temodar concurrent chemoradiation from 04/04/2019 through 05/31/2019. Afterwards since 06/19/2019, she has been on monthly adjuvant Temodar 300 mg by mouth daily at bedtime x 5 nights every 28 days. Interim Events: I was asked to see the patient at [facility] for first day treatment with Avastin. Patient was admitted last Wed (08/23/2019) for nausea, vomiting, weakness and headache. She was recently hospitalized at . Her cerebral edema seems to be dependent dexamethasone. She was without for the prior 2 days. Based on medical records, Dr. Grey at recommended Avastin as soon as possible, hopefully to help with her cerebral edema and decreasing dexamethasone dose. However, Avastin has been delayed multiple times because the patient could not keep her appointments at [facility]. After she was admitted to on 08/23/2019, it was decided to initiate Avastin while she is in the hospital. Today, after talking with oncology pharmacist and nurses at [facility], and pre-approval, patient received her first infusion of Avastin. She tolerated well. To control her nausea, vomiting and headache, dexamethasone 4 mg q6h and compazine 10 mg iv q6h were initiated. At the time of my encounter in the evening, patient had already had her dinner. She was calm and no nausea or vomiting. Her headache has improved. - Additional ROS All systems PM: reviewed and no additional remarkable complaints except as stated Home Medications and Allergies Home Medications Medication Instructions Recorded Confirmed Type True Brand Glucometer #1 ea 06/21/18 08/23/19 Rx insulin syringe-needle U-100 0.5 #300 each 01/26/19 08/23/19 Rx mL 30 gauge x 5/16 True Brand test strips #100 each 03/13/19 08/23/19 Rx atorvastatin 40 mg tablet 40 mg PO QPM #90 tab 03/13/19 08/23/19 Rx dexamethasone 4 mg tablet 4 mg PO Q12H 03/27/19 08/23/19 History sulfamethoxazole 800 1 tab PO DAILY #30 tab 03/27/19 08/23/19 Rx mg-trimethoprim 160 mg tablet ondansetron 8 mg disintegrating 8 mg PO TID PRN #30 tab 05/10/19 08/23/19 Rx tablet sertraline 100 mg tablet 100 mg PO DAILY #30 tab 07/10/19 08/23/19 Rx acetaminophen 0 mg PO DIRECTED 08/23/19 08/23/19 History calcium carbonate [Calcium Antacid] 400 mg PO TID 08/23/19 08/23/19 History insulin lispro [Humalog KwikPen 0 unit SUBCUT DIRECTED 08/23/19 08/23/19 History Insulin] metformin 1,000 mg PO BID 08/23/19 08/23/19 History pantoprazole 40 mg PO DAILY 08/23/19 08/23/19 History polyethylene glycol 3350 0 g PO DIRECTED 08/23/19 08/23/19 History Allergies Allergy/AdvReac Type Severity Reaction Status Date / Time promethazine [From PHENERGAN] Allergy Severe HIVES Verified 08/23/19 12:36 Exam Vital signs: Vital Signs Temp Pulse Resp BP Pulse Ox 08/28/19 20:00 98.4 F 91 H 14 132/93 H 95 08/28/19 15:57 88 18 138/99 H 95 08/28/19 15:50 96 08/28/19 15:15 97.7 F 92 H 16 123/99 H 98 08/28/19 14:26 86 16 136/94 H 94 08/28/19 12:00 97.1 F L 80 16 148/105 H 98 08/28/19 10:45 95 08/28/19 08:44 97.6 F 78 16 133/92 H 97 08/28/19 05:50 97.2 F L 77 16 142/92 H 96 08/28/19 00:05 97 08/27/19 23:44 97.2 F L 88 16 110/70 97 Intake and Output 1008/28/19 08/28/19 07:59 15:59 23:59 Intake Total 150 / 386 236 / 386 Output Total 300 / 625 325 / 625 Balance -150 / -239 -89 / -239 Intake: IV 236 / 236 Bevacizumab 100 mg Bevacizumab 136 / 136 800 mg In Sodium Chloride 0.9% (Chemo) 100 ml @ As Directed IV CHEM [facility] Rx#:[id number] Sodium Chloride 0.9% 100 ml @ 100 / 100 TKO IV NOW [facility] Rx#:[id number] Oral 150 / 150 Output: Urine Amount (Catheter) 300 / 625 325 / 625 Other: Percent Meal Consumed refused breakfast 50% Weight 85.6 kg Patient Weight 08/28/19 23:59 Weight 85.6 kg Narrative: General: NAD, chronically-ill, awake and alert x3. Heent: craniotomy incision noted; well healed; aniteric Heart: Regular rate and rhythm, no murmurs, gallops or rubs Lungs: Clear to auscultation bilaterally, no wheezes, rales or rhonchi Abd: Soft, non-tender, no palpable organomegaly Extremities: Warm, no pitting edema noted. Results - Labs Laboratory Last Values WBC 5.9 X10^3/uL (4.5-11.0) 08/24/19 05:30 RBC 4.54 X10^6/uL (4.0-5.2) 08/24/19 05:30 Hgb 13.1 g/dL (12.0-16.0) 08/24/19 05:30 Hct 39.9 % (36-46) 08/24/19 05:30 MCV 87.8 fL (80-100) 08/24/19 05:30 MCH 28.8 PG (26-34) 08/24/19 05:30 MCHC 32.8 % (30-36) 08/24/19 05:30 RDW 13.8 % (11.6-14.8) 08/24/19 05:30 Plt Count 197 X10^3/uL (150-400) 08/24/19 05:30 Neut % (Auto) 66.2 % (50-75) 08/24/19 05:30 Lymph % (Auto) 25.2 % (25-40) 08/24/19 05:30 [place] % (Auto) 8.1 % (3-14) 08/24/19 05:30 Eos % (Auto) 0.1 % (2-4) L 08/24/19 05:30 Baso % (Auto) 0.4 % (0-2) 08/24/19 05:30 Neut # (Auto) 3900 /uL (2257-8595) 08/24/19 05:30 Lymph # (Auto) 1500 /uL (5801-1596) 08/24/19 05:30 [place] # (Auto) 500 /uL (0-900) 08/24/19 05:30 Eos # (Auto) 0 /uL (0-450) 08/24/19 05:30 Baso # (Auto) 0 /uL (0-100) 08/24/19 05:30 PT 12.4 SECONDS (10.1-12.7) 08/23/19 12:30 INR 1.1 (0.9-1.3) 08/23/19 12:30 APTT 30 SECONDS (26.4-36.2) 08/23/19 12:30 Sodium 137 mmol/L (137-145) 08/24/19 05:30 Potassium 3.9 mmol/L (3.4-5.1) 08/24/19 05:30 Chloride 105 mmol/L (98-107) 08/24/19 05:30 Carbon Dioxide 25 mmol/L (22-32) 08/24/19 05:30 BUN 12 mg/dL (7-17) 08/24/19 05:30 Creatinine 0.50 mg/dL (0.52-1.04) L 08/24/19 05:30 Estimated GFR > 60.0 mL/min (>60) 08/24/19 05:30 BUN/Creatinine Ratio 24.0 (6-22) H 08/24/19 05:30 Glucose 333 mg/dL (70-100) H 08/24/19 05:30 Lactate 1.5 mmol/L (0.7-2.1) 08/23/19 16:03 Calcium 9.0 mg/dL (8.4-10.2) 08/24/19 05:30 Magnesium 1.7 mg/dL (1.6-2.3) 08/24/19 05:30 Total Bilirubin 0.8 mg/dL (0.2-1.3) 08/23/19 12:30 AST 17 IU/L (14-36) 08/23/19 12:30 ALT 38 IU/L (9-52) 08/23/19 12:30 Alkaline Phosphatase 99 U/L (38-126) 08/23/19 12:30 Total Protein 7.2 g/dL (6.3-8.2) 08/23/19 12:30 Albumin 4.1 g/dL (3.5-5.0) 08/23/19 12:30 Globulin 3.1 g/dL (1.7-4.1) 08/23/19 12:30 Albumin/Globulin Ratio 1.3 (1.0-2.8) 08/23/19 12:30 Lipase 59 U/L (23-300) 08/23/19 12:30 Urine RBC None seen (0-5/HPF) 08/23/19 16:30 Urine WBC 1-5/hpf (0-5/HPF) 08/23/19 16:30 Ur Squamous Epith Cells 0-1 /hpf (0-5/HPF) 08/23/19 16:30 Amorphous Sediment 1+ 08/23/19 16:30 Urine Bacteria Occasional (0-1) (None) 08/23/19 16:30 Urine Mucus 2+ (Negative) H 08/23/19 16:30 Ur Culture Indicated? Cult not indicated 08/23/19 16:30 - Imaging Additional studies: Procedures Injection or infusion of other therapeutic or prophylactic substance (06/05/14) Assessment and Plan (1) Glioblastoma multiforme of parietal lobe 49 year old female with recently diagnosed glioblastoma status post craniotomy with partial resection followed by concurrent Temodar and radiation therapy. She was then started on monthly Temodar. She was admitted due to severe nausea, vomiting, and headache, likely due to progression of her glioblastoma. Today, she was given her first dose of Avastin, and tolerated well. For symptomatic control, she was restarted on dexamethasone. She was also given compazine. Her n/v have stopped and headache much improved. I would recommend that start dexamethasone tapering in am if possible.
[2019-08-29] VITALS (8 sets, daily range): BP systolic 122–144; BP diastolic 57–99; PULSE 71–89; RESP 14–17; TEMP 35.9–36.7; O2SAT 94–98; BMI 27.7
--- NOTE | 2019-08-29 01:06 | PC.NURSE ---
Addendum entered by Nahomy Hernandez R.N. 08/29/19 06:08: Slept between repositioning, although did refuse 0500 repositioning stating she was comfortable. No pain. UOP 350cc. Denies any nausea. Original Note: Patient oriented to self, birthdate, age and day of week. Breath sounds diminished but CTA with RA sat of 95%. HRR. Denies nausea. BT hypoactive; abdomen is soft. Has not had BM since 08/25. Indwelling catheter is patent with clear yellow urine. Weakness left side of body and needs assist to reposition q2h. Blind in left eye. Currently not getting out of bed although reportedly dangled with PT assist yesterday. Denies pain. Wearing bilateral SCD's. On chemo isolation. Fall risk score is high and bed alarm is activated.
[2019-08-29 05:27] LABS: Add Manual Diff / Slide Review NO; Basophils Absolute Auto 0 /uL (0-100); Basophils Percent Auto 0.4 % (0-2); Eosinophils Absolute Auto 0 /uL (0-450); Eosinophils Percent Auto 0.2 % (2-4); Hemoglobin 14.8 g/dL (12.0-16.0); Lymphocytes Absolute Auto 2400 /uL (1100-4500); Mean Corpuscular HGB Conc 33.6 % (30-36); Mean Corpuscular Hemoglobin 28.7 PG (26-34); Mean Corpuscular Volume 85.4 fL (80-100); Monocytes Absolute Auto 500 /uL (0-900); Monocytes Percent Auto 7.7 % (3-14); Neutrophils Absolute Auto 3400 /uL (1500-7000); Neutrophils Percent Auto 53.7 % (50-75); Platelet Count 261 X10^3/uL (150-400); Red Blood Cell Count 5.16 X10^6/uL (4.0-5.2); Red Cell Distribution Width 14.2 % (11.6-14.8); White Blood Cell Count 6.3 X10^3/uL (4.5-11.0)
[2019-08-29 05:35] LABS: BUN Creatinine Ratio 26.3 (6-22); Blood Urea Nitrogen 21 mg/dL (7-17); Calcium 9.9 mg/dL (8.4-10.2); Carbon Dioxide 27 mmol/L (22-32); Chloride 103 mmol/L (98-107); Estimated Glomerular Filt Rate > 60.0 mL/min (>60); Glucose 234 mg/dL (70-100); HEMOLYSIS < 15 (0-50); Sodium 139 mmol/L (137-145)
--- NOTE | 2019-08-29 07:58 | PM.PN.1 ---
Subjective Subjective Date Patient Seen: 08/29/19 Time Patient Seen: 07:58 Interval history: Patient had no issues with the Avastin given to her yesterday Probably because the dexamethasone but her nausea vomiting or significantly improved and she actually ate about 50% of her meal yesterday evening Per patient and nursing staff reports headache is much improved as well Exam Vital Signs (past 8 hours): - 08/29/19 00:52 08/29/19 05:00 Temperature 97.6 F 97.9 F Pulse Rate 89 71 Respiratory Rate 16 17 Blood Pressure 135/89 122/86 Pulse Oximetry 95 97 Oxygen Delivery Method Room Air Oxygen Flow Rate 0 Narrative Exam Narrative: Unchanged from previous Objective Labs Result Diagrams: 08/29/19 05:01 08/29/19 05:01 Labs: Laboratory Results - last 24 hr 08/29/19 08/29/19 05:01 05:01 WBC 6.3 RBC 5.16 Hgb 14.8 Hct 44.0 MCV 85.4 MCH 28.7 MCHC 33.6 RDW 14.2 Plt Count 261 Neut % (Auto) 53.7 Lymph % (Auto) 38.0 [place] % (Auto) 7.7 Eos % (Auto) 0.2 L Baso % (Auto) 0.4 Neut # (Auto) 3400 Lymph # (Auto) 2400 [place] # (Auto) 500 Eos # (Auto) 0 Baso # (Auto) 0 Sodium 139 Potassium 4.0 Chloride 103 Carbon Dioxide 27 BUN 21 H Creatinine 0.80 Estimated GFR > 60.0 BUN/Creatinine Ratio 26.3 H Glucose 234 H Calcium 9.9 Assessment & Plan Assessment & Plan narrative: 1. Glioblastoma-continue with treatment plan as per Oncology. Patient received her Avastin yesterday. Plan had been to reduce dexamethasone but I think perhaps keeping it at a higher level today for symptom control if nothing else and then begin a taper tomorrow would make sense 2. Diabetes-patient is eating better and I am sure the dexamethasone has had an impact. Patient was borderline hypoglycemic previously but is quite hyperglycemic with blood sugars in excess of 250 yesterday. Will give slightly increased doses of Lantus and increase the intensity of her coverage insulin. Will need to watch cautiously as she may become hypoglycemic again certainly if her dexamethasone dose is decreased it will require careful monitoring 3. GI/nutrition/hydration-continue with current antiemetics etc. I do believe she is better likely because of the dexamethasone if nothing else. Overall plan is for a family conference today to help determine next course of action given her current status. Whether she would be appropriate or even desiring of transfer to more of a palliative care/hospice care is yet to be determined. I have not reviewed all of her medical details but does appear to me at this point that her prognosis is poor in serious consideration of issues around end of life care would be entirely appropriate. Multiple plan is for her to I think go back to [facility] and receive more chemotherapy in the form of Avastin over time and look for clinical response. Note: Greater than 30 minutes was spent evaluating the patient on the floor, including examining the patient, discussing clinical course with clinical and nursing staff, reviewing clinical course in the computer, preparing documentation and writing orders for continued management of care, discussing status with family as appropriate, reviewing plans for the next 24 hours with both patient/family and nursing staff as appropriate. Quality VTE Deep Vein Thrombosis/Pulmonary Embolism Present on Admission: No
[2019-08-29] MEDS: ENOXAPARIN 40 MG/0.4 ML SYRINGE SUBCUT (08:26)
[2019-08-29] MEDS: PROCHLORPERAZINE 10 MG/2 ML VIAL 5 MG IV ×2 (08:26→16:56)
[2019-08-29] MEDS: SODIUM CHLORIDE 0.9% FLUSH 10 ML IV ×2 (08:26→21:18)
[2019-08-29] MEDS: INSULIN ASPART 100 UNIT/ML INSULN PEN SUBCUT ×4 (08:28→21:07)
[2019-08-29] MEDS: INSULIN GLARGINE 100 UNIT/ML 3ML PEN 30 UNIT SUBCUT (08:29)
--- NOTE | 2019-08-29 09:19 | PC.NURSE ---
Addendum entered by Masha Jennings R.N. 08/29/19 15:26: GI - did eat some at lunch, discussed again po medications and pt feels that she just cannot swallow them, afraid of emesis although not reporting nausea at this time, refuses to have them crushed and in carrier. Addendum entered by Masha Jennings R.N. 08/29/19 10:40: MS/GI - continued to decline any po medications, PT and OT in this am and pt up to dangle position, able to dangle longer today and was willing to attempt to stand and tsf to chair, x2 person w/fww, slowly stood, pt had difficulty moving her le, managed a few shuffle steps, had to sit back down due fatigue, on 2nd attempt, w/PT and OT, stood and did a pivot to the chair. Original Note: AM NOTE - pt is alert this am, denies nausea now, no pain or headache, repositioned for some fruit this am, discussed nausea and pt can't really loida more than a few bites, did bring in po medications and pt not sure if she can get down, doesn't feel that it is difficult to swallow, afraid of vomiting then back up, did admin iv dose compazine this am to enc po intake, discussed constipation and declines laxatives I feel fine.
--- NOTE | 2019-08-29 10:42 | PT.IPTN ---
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) Type 2 diabetes mellitus with hyperglycemia (08/23/19) Nausea with vomiting, unspecified (08/23/19) Weakness (08/23/19) Physical Therapy Treatment Note M2 PT-IP Current Condition Start: 08/24/19 08:32 Freq: NEEDED Status: Active Protocol: Document 08/24/19 10:35 AW (Rec: 08/24/19 11:23 AW [id number]) Physical Therapy Current Condition Current Condition Evaluation Date 08/24/19 Treatment Diagnosis s/p craniotomy, weakness, difficulty in walking Weight Bearing Status Weight Bearing Status Full Weight Bearing M3 PT-IP Subjective Start: 08/24/19 08:32 Freq: NEEDED Status: Active Protocol: Document 08/29/19 10:15 CLB (Rec: 08/29/19 12:56 CLB [id number]) Subjective Physical Therapy Visit Type Type Treatment Note Visit Start Time 10:15 Visit Stop Time 10:42 Total Visit Minutes 27 Notes Co-treated with OT Susan. Number of BRAND SPECIALIST Visits 2 Physical Therapy Visit Comments Patient Comments Pt willing to participate with PT agreeing to try to transfer to chair. M4 PT-IP Mobility and Gait Start: 08/24/19 08:32 Freq: NEEDED Status: Active Protocol: Document 08/29/19 10:15 CLB (Rec: 08/29/19 12:56 CLB [id number]) PT-Bed Mobility Assessment Rolling Type of Rolling Log Rolling,Roll to Right Level of Assist Moderate Assistance,2 Person Assistance Supine to Sit Supine to Sit Moderate Assistance,2 Person Assistance,Head of Bed Elevated,Bedrails Scooting Scooting to Edge of Bed Moderate Assistance PT-Transfer Assessment Sit to and From Stand Sit to and from Stand Moderate Assistance,2 Person Assistance Equipment Transfer Assistive Device Gait Belt Transfers Transfer Destination Chair Transfer Technique Squat Pivot Transfer Ability Level of Assist Moderate Assistance,2 Person Assistance Gait Assessment Comments Gait Comments unable M5 PT-IP Objective Assessments Start: 08/24/19 08:32 Freq: NEEDED Status: Active Protocol: Document 08/24/19 10:35 AW (Rec: 08/24/19 11:23 AW [id number]) Orientation Orientation/Cognition Level of Alertness Alert Orientation Name,Day of Week,Place, Situation Language Function Ability No Deficits Noted Safety Awareness Understands Safety Issues Memory Description No Deficits Noted Comments Pt appeared to be an accurate historian. No word-finding difficulties observed. Gross Range of Motion Upper Extremity ROM Assessment Left Impaired Impairments L shoulder flexion ~105 degrees AROM. Full PROM without pain or restriction Lower Extremity ROM Assessment Bilaterally Impaired Strength Upper Extremity Strength Assessment Bilaterally Impaired Lower Extremity Strength Assessment Bilaterally Impaired Comments Strength Comments RUE 4-/5 LUE 3/5 RLE 4-/5 LLE 3/5 Coordination Assessment Gross Coordination Gross Coordination Impaired Assessment Finger to Nose Test Moderate Impairment Heel on Deluca Test Normal Performance Coordination Comments Signs of dysmetria on finger to nose testing with LUE, requiring extra time and with missed targets >2 cm. Sensation Assessment Sensation Gross Sensation Left UE Impaired,Left LE Impaired Light Touch Impaired Sensation Description Numbness Comments Sensation Comments Light touch sensation impaired LUE/LLE on exam with no identifiable pattern or distribution. Other Assessments Other Other Assessments Pt has notable atrophy of BLE M6 PT-IP Treatment Start: 08/24/19 08:32 Freq: NEEDED Status: Active Protocol: Document 08/24/19 10:35 AW (Rec: 08/24/19 11:23 AW [id number]) Physical Therapy Treatment Education Education Provided Safety M7 PT-IP Assessment and Plan Start: 08/24/19 08:32 Freq: NEEDED Status: Active Protocol: Document 08/29/19 10:15 CLB (Rec: 08/29/19 12:56 CLB [id number]) PT Summary Assessment and Plan Summary Assessment Summary Pt tolerated transfer to chair without c/o dizziness. Pt required Mod A x2 supine>sit> scooting to EOB, pt then attempted to stand and pivot to chair towards the right but pt unable to advance LLE's. Pt was returned to sitting on EOB and agreed to squat pivot to chair. Pt required Mod A x2 with one therapist in front of pt with pts arms on therapists shoulders and second therapist guiding hips into chair. Once pt was in chair she leans to left, pillow was placed along left side to prevent left lean. Pt was left in chair with all needs within reach with OT and RUBBER MIXER present. Goals Bed Mobility Goal Standby Assistance Transfer Goal Contact Guard Assistance Gait Goal Contact Guard Assistance Gait Distance 100 feet Other Goals up/down two stairs with left rail ascending CGA Days to Meet Goals 10 Frequency of Treatment Frequency Of Treatment Once a Day Treatment Plan Physical Therapy Treatment Plan Bed Mobility Training,Transfer Training,Gait Training, Therapeutic Exercise,Balance Retraining,Discharge Planning, Hot or Cold Pack,Neuromuscular Re-ed,Coordination Retraining ,Manual Therapy Other Recommendations and Next Treatment transfers Focus Recommendations To Nursing Amount of Assist Needed 2 Person Assist,Mechanical Lift Discharge Recommendations PT Discharge Recommendations SNF Rehab,LTAC
--- NOTE | 2019-08-29 10:50 | DIET.PN ---
Addendum entered by Berenice Scott 08/30/19 09:58: Per [employer], pt ate scrambled eggs, 2 piece toast, strawberries, orange slices, and 1/2 ensure clear for breakfast as nausea is better controlled. Original Note: Dietary Progress Note Assessment: 49y F admitted for weakness, N/V associated c cerebral edema from glioblastoma. Pt often unable to keep appts to receive meds, so N/V is recurrent. Pt N/V under better control today, however, pt sleeping most of the day. When interviewed by this RD, pt says the only thing she wants to eat is strawberries. With high rate of unintentional wt loss, fragile N/V sx, and severely reduced appetite, pt unlikely to meet EERs c PO intake, even using ONS supps. Consuming 100% ONS Ensure Clear tid only meets 19% PRO needs. HT: 175.2cm WT: 85.2kg (15.7% unintentional wt loss in 6 mo, severe) BMI: 27.8 BM: 1 moderate on 08/27, pt has poor PO intake. 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 Interventions: 1. Recc ONS Ensure clear tid (pt unwilling to drink other types, no smoothies) 2. Continue sending CCD trays to encourage POs 3. Family consider care meeting, EN/TPN likely only way to meet EERs at this time. Diet Order: CCD EER: 1800kcal, 110g PRO (1.3g/kg Ca), 2.5L fluids Monitoring/Evaluations: POs, N/V, ONS acceptance, pt likes/dislikes re: pro foods as N/V sx improve
--- NOTE | 2019-08-29 10:56 | OT.IP.TRT ---
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) Type 2 diabetes mellitus with hyperglycemia (08/23/19) Nausea with vomiting, unspecified (08/23/19) Weakness (08/23/19) Occupational Therapy Treatment Note M2 OT-IP Current Condition Start: 08/24/19 14:55 Freq: Status: Active Protocol: Document 08/24/19 13:36 PJM (Rec: 08/24/19 15:33 PJM [id number]) Occupational Therapy Current Condition Current Condition Evaluation Date 08/24/19 Treatment Diagnosis L hemiplegia s/p recent glioblastoma resection w/ vomiting,headache,weakness Diagnosis Onset Date 08/23/19 Post Operative Precautions Other Precautions high fall risk, L neglect M3 OT- IP Subjective and Pain Start: 08/24/19 14:55 Freq: Status: Active Protocol: Document 08/29/19 10:47 CCC (Rec: 08/29/19 10:56 [facility] [id number]) OT- Subjective Occupational Therapy Visit Type Type Treatment Note Visit Start Time 10:15 Visit Stop Time 10:43 Total Visit Minutes 28 Occupational Therapy Visit Comments Patient Comments After encouragement pt willing to try to get up today. Pt stating not feeling any dizziness today after being seen for therapy. OT Pain Assessment Pain When Pain Assessed At Rest Pain Present Pain Present Denied Pain M4 OT- IP ADL's Start: 08/24/19 14:55 Freq: Status: Active Protocol: Document 08/29/19 10:47 CCC (Rec: 08/29/19 10:56 [facility] [id number]) OT ADL-Grooming Comments OT Grooming Comments Pt states to do grooming later as too tired from the transfer. OT ADL-Dressing General Eval Lower Body Dressing Ability Moderate Assistance Comments OT Dressing Comments Pt able to cross her right leg over to joanna sock intially over her foot and needing assist to pull up over her heel. OT ADL-Toileting Comments OT Toileting Comments Osei in. M5 OT- IP IADL's Start: 08/24/19 14:55 Freq: Status: Active Protocol: Document 08/24/19 13:36 PJM (Rec: 08/24/19 15:33 PJM [id number]) OT-Instrumental Activities of Daily Living Deficits IADL Deficits Identified Deficits Home Safety Awareness Awareness of Need for Assistance at Home Decreased Awareness Medication Management Medication Management Caregiver Administers Medication Management Comments daughter, anthony Ellis pt's meds Money Management Money Management Caregiver Provides Assistance Money Management Comments father assists pt with finances Meal Preparation Meal Preparation Caregiver Provides Assist Meal Preparation Comments family provides assist Valve Steamer Valve Steamer Caregiver Provides Assist Valve Steamer Comments family provides assist Driving Driving Caregiver Provides Assist Driving Comments family provides assist M6 OT- IP Functional Cognition Start: 08/24/19 14:55 Freq: Status: Active Protocol: Document 08/29/19 10:47 [facility] (Rec: 08/29/19 10:56 [facility] [id number]) Cognitive Factors Limiting Selfcare Function Cognitive Ability Level of Alertness Alert Patient Orientation Name,Place,Situation Attention Span Ability Capable of Focused Attention, Capable of Sustained Attention Ability to Follow Commands Able to Follow One Step Commands Memory Description Short Term Impaired Safety Awareness Underestimates Need for Assistance Problem Solving Ability Unable to Identify Errors, Needs Assist to Identify Solutions Cognitive Comments Cognitive Assessment Comments Pt having difficulty for determining right versus left , not aware of midline while sitting as pt tends to lean to the left. Pt able to follow simple concrete commands and needing tactile cues for hand placement on the FWW. M7 OT- IP Mobility and Balance Start: 08/24/19 14:55 Freq: Status: Active Protocol: Document 08/29/19 10:47 [facility] (Rec: 08/29/19 10:56 [facility] [id number]) OT- Bed Mobility Assessment Supine to Sit Supine to Sit Assist Moderate Assistance,2 Person Assistance,Head of Bed Elevated,Bedrails Scooting Scooting to Edge of Bed Moderate Assistance,2 Person Assistance OT-Transfer Assessment Sit to and From Stand Sit to and from Stand Moderate Assistance,2 Person Assistance Transfers Transfer Ability Moderate Assistance,2 Person Assistance Technique Transfer Destination Bed,Chair Transfer Technique Stand Pivot Devices Transfer Assistive Devices None,Gait Belt Comments Mobility Comments Attempted to transfer to recliner with FWW. Pt able to come to stand but having difficulty with initiation to help for weight shifting, moving her feet and FWW. Pt able to take a step but needing MAX AX 2 to help move her feet , weight shifting, moving the FWW , and requesting to sit back down. Pt agreeable to try squat pivot transfer to recliner able to do with MODA X 2 . Pt able to assist by holding onto therapist's arms in the front able to move her feet while 2nd therapist assisted to help move her hips to the recliner to sit. * able to educate pt to have items placed on the left side of her tray to help work on her vision and head movements. Therefore to have her water and tissues on the left side to help pt increase ability to look left. OT- Gait Assessment Comments Gait Ability Comments pt non ambulatory at present OT- Balance Assessment Sitting Balance and Reactions Static Sitting Balance Ability Fair M8 OT- IP Objective Assessments Start: 08/24/19 14:55 Freq: Status: Active Protocol: Document 08/24/19 13:36 PJM (Rec: 08/24/19 15:33 PJM [id number]) OT Gross Range of Motion Upper Extremity Range of Motion Assessment Left Impaired ROM Impairments Pt has decreased isolated AROM in L shoulder to about 100 degrees scaption. AROM WFL distally but slowed compared to RUE. LUE neglect noted duirng BUE AROM. 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 She used B hands prior to surgery. OT- Coordination Assessment Upper Extremity Finger to Nose Test Left UE Impaired Finger Tapping Test Left UE Impaired Comments Coordination Comments LUE rapid alternating movements significantly slowed compared to R with mild dysmetria noted OT-Muscle Tone Assessment Muscle Tone WNL Yes OT Sensation Assessment Location Left Arm Light Touch Absent Deep Pressure Intact/Normal Sensation Description Numbness Comments Summary Comments Pt has decreased LUE sensation which contribues to LUE neglect Edema Edema Absent M9 OT- IP Assessment and Plan Start: 08/24/19 14:55 Freq: Status: Active Protocol: Document 08/29/19 OT Summary Assessment and Plan Summary OT Impairments Range of Motion,Strength, Balance,Coordination,Sensation ,Functional Cognition, Functional Mobility,Grooming, Dressing,Toileting,Bathing, Toilet Transfers,Shower Transfers Progress Towards Goals Slow Progress due to Medical Issues,Slow Progress due to Activity Tolerance Assessment Summary Pt now able to tolerate getting up and transferring to the recliner today. Pt now not feeling dizzy/nauseous which was greatly impacting her participation in therapies prior. Continue to work with pt on getting stronger, increased balance and safety to help maximize her independence for ADL and functional mobility needs. Frequency of Treatment Frequency Of Treatment Once a Day Treatment Plan OT Treatment Plan ADL Training,Functional Cognition Training,Functional Mobility,Neuromuscular Re- education,Vision Retraining, Patient/Family Education, Discharge Planning Discharge Recommendations OT Discharge Recommendations SNF Rehab Other Discharge Recommendations Pending continued progress, pt would benefit from skilled rehab.
--- NOTE | 2019-08-29 10:58 | ST.IPSCREEN ---
Order received for swallowing evaluation secondary to reduced PO intake over the past several days. Pt has been very nauseated and not eating/drinking. Last night pt began eating (~50% meal) and has been eating today. Met with pt who indicated she had been too nauseated to eat. Since receiving medication, she reported that she feels better. Screened swallowing function. Able to safely tolerate regular texture with thin liquids without overt s/sx aspiration. Will d/c/ order at this time.
[2019-08-29] MEDS: DEXAMETHASONE 4 MG/ML VIAL IV ×2 (11:40→16:55)
--- NOTE | 2019-08-29 13:11 | CM.DPC ---
DCP/continued: Reviewed chart. Patient is LOS#[address] Yen on 08-28 patient medically cleared to discharge from [facility] Spoke with patient and daughter/Rhonda in the afternoon on 08-28. Daughter reports that she is caregiver through the state. In addition, daughter reports that she is unable to care for patient in the home at time of d/c due to increased weakness and high needs. [facility] has been evaluating and attempting to get authorization for SNF stay from [facility]. Received call this afternoon from April at [facility] and short term authorization obtained. Left message with MD velázquez/Dr. Coello. In addition, to the above, placed call to patient's TOAN HUERTA/David Napoles ph# [phone] he reports that patient currently has in-home caregiver status only. Last assessment done in March 2019. David is in agreement that patient would qualify, and be much more appropriate for placement assessment outside of the home. David made aware that daughter/Rhonda unable to care for her at this time. David in agreement to do change of status on application with patient today. David available at 3:30pm and plans to call patient in the room. Daughter notified. If patient ends up discharging before 3:30pm will call David and ask that he complete with daughter and patient at [facility]. Also faxed clinical to Vanna Egan for review for long-term placement. [employer] spoke Mary Anne. She reports that they will review for extermination supervisor plan. At this time patient plans to continue chemotherapy treatment. Her ONC is at [facility]. [employer] [employer] is Byron Lincoln ph# [phone]. Notified TOAN HUERTA that most appropriate long-term placement plan should be in [place] so that patient is close to ONC and support provided by [facility] ONC team. Plus much easier to get patient to/from treatments if she is closer to center. Received return phone call from Dr. Coello indicating that he does not feel that patient is medically stable for d/c today. Spoke with Cristy at [facility] and they report that they can accept tomorrow as well. Dr. Yen will be returning. Will notify patient and daughter. P: [facility] when medically stable. Patient has been in OBS status x6days. SNF bed secured as of 1:00pm today. LIBIA Fitzpatrick
[2019-08-29] MEDS: INSULIN GLARGINE 100 UNIT/ML 3ML PEN 25 UNIT SUBCUT (21:08)
[2019-08-30] VITALS: BP 121/90; PULSE 83; RESP 18; TEMP 36.6; O2SAT 96
[2019-08-30] MEDS: DEXAMETHASONE 4 MG/ML VIAL IV ×2 (00:15→06:04)
[2019-08-30] MEDS: SODIUM CHLORIDE 0.9% FLUSH 10 ML IV ×3 (00:15→09:49)
--- NOTE | 2019-08-30 00:34 | PC.NURSE ---
Patient oriented except to day of month/day of week. Knows she is in the hospital but thought town was [facility]. Breath sounds diminished but CTA with RA sat of 96%. HRR. Denies nausea. BT hypoactive; abdomen is soft. Has not had a BM x 5 days but states she is passing flatus. Indwelling catheter is patent. Is assisted to reposition q2h as patient will allow but does move well in bed. Denies pain. Calf SCD's off at shift change and now reapplied. Continues on chemo precautions as last chemo was on 08/28. Fall risk score is high and bed alarm is activated.
[2019-08-30 04:00] VITALS: BP 112/78; PULSE 61; RESP 18; TEMP 36.4; O2SAT 96
[2019-08-30 08:00] VITALS: BP 123/78; PULSE 59; RESP 16; TEMP 36.2; O2SAT 97
--- NOTE | 2019-08-30 08:38 | CM.DPC ---
DCP continues: EMR reviewed. CM spoke to Cristy at [facility] to confirm acceptance for patient for today. Cristy stated they will be picking her up at 10:30am. DEANNA spoke to Dr. Yen and she will be placing DC orders this morning 08/30/2019 for patient. DEANNA called Shayna HUERTA [place] at [phone] to rescheduled missed phone appointment and arranged for CM to come to [facility] on 08/31/2019 at noon which works around daughters work schedule to meet with patient and daughter to change shayna status to reflect SNF placement. DEANNA called patients daughter Carley at [phone]. informed her of the appointment tomorrow 08/31/2019 with SHAYNA HUERTA. Patients daughter stated she would try to make it. DEANNA emphasized the importance of the meeting and patients daughter stated understanding. DEANNA called Cristy at [facility] to let her know about the meeting scheduled with SHAYNA HUERTA. Patients oncology SHIPFITTER APPRENTICE is Byron you and he has been notified that patient is now at [facility]. Kimberly Luna RN.
--- NOTE | 2019-08-30 08:42 | PM.DS.1 ---
History of Present Illness History of Present Illness Chief complaint: Weakness Narrative: Patient is a 49 yo female with history of diabetes and glioblastoma multiforme last transferred from admitted to and discharged on 07/29/2019 to [facility]. She was discharged from there to home on 08/14/2019. She lives with her daughter and grand-daughter who have been trying to provide care which is difficult. Daughter called the office today saying that patient was vomiting but was too weak to roll to the side. Daughter is unable to get patient to move at all. Patient tells me that she has had a headache for the past 2 days. Tells me she hasn't taken her dexamethasone. Hasn't taken any of her meds. Hasn't eaten. Pain is frontal. Now it's a 4/10. closing her eyes helps with the pain. Missed follow up apt with me on 08/17 and also had follow up scheduled for yesterday at which she did not attend. Tells me that she is doing some sort of chemotherapy but doesn't remember the details. Discharge Providers Provider Date of admission: 08/23/19 17:16 Discharge Date: 08/30/19 Primary care physician: Merari Yen DO Consults: 08/23/19 17:52 Consult to Discharge Planning Routine Comment: patient will need more support for discharge Consult to Occupational Therapy Evaluate & Treat Comment: Physician Instructions: Evaluate and treat Consult to Physical Therapy Evaluate & Treat Comment: Physician Instructions: Evaluate and Treat Consult to Vp Patient Routine Comment: 08/28/19 09:51 Consult to Hospice Referral Routine Comment: informational 08/28/19 09:52 Consult to Oncology Routine Comment: Consulting Provider: Kingston Beatty Reason for consultation: glioblastoma multiforme Has provider been notified: Yes 08/28/19 15:32 Consult to Dietitian, Adult Routine Comment: Reason For Exam: poor nutrition intake Consult to Speech Therapy Evaluate & Treat Comment: Physician Instructions: Evaluate and treat Discharge provider: Merari Yen DO Summary Hospital Course Discharge Diagnosis: Glioblastoma multiforme s/p partial tumor resection Headache Chronic nausea Cerebral edema Diabetes Protein calorie malnutrition Depression Hospital Course: Glioblastoma multiforme s/p craniotomy with partial removal of tumor: Received her first dose of palliative avastin with improvement of her symptoms. Increased steroids helping with edema as well. Had CT scan in ED and reviewed by [facility] read as no change in disease. Nausea: Continue scopalamine and Zofran, added compazine and lorazepam for better control. She was tolerating orals at discharge. Headache: Known cerebral edema. Improved with hydration and dexamethasone. Her dexamethasone is critical. If unable to get it PO she should get it IM or IV. Diabetes: Historically poor control even prior to steroids but these aren't making it any easier. She has been receiving lantus twice daily and a sliding scale which can be continued at discharge. Have stopped her metformin because it probably wasn't helping with GI upset anyway. Infection: No obvious source. Normal WBC. No fever. PCP prophylaxis with trimethoprim/sulfamethoxazole Depression: manageable on 100 mg sertraline daily Code status: DNR DVT prophylaxis: lovenox Care Management worked hard on appropriate placement for patient and most of the following is editing from their notes. Patient had prolonged admission due to difficulties with placement and treatment. Were finally able to find placement at [facility] for her needs. Also were finally able to get her chemotherapy started which should enable her to function at a higher level. Daughter/Rhonda reports that she is caregiver through the state. In addition, daughter reports that she is unable to care for patient in the home at time of d/c due to increased weakness and high needs. Patient's TOAN /David Napoles ph# [phone] he reports that patient currently has in-home caregiver status only. Last assessment done in March 2019. David is in agreement that patient would qualify, and be much more appropriate for placement assessment outside of the home. David made aware that daughter/Rhonda unable to care for her at this time. David in agreement to do change of status on application with patient today. Unclear if patient will continue her chemotherapy since she has history of nausea and anxiety on the day scheduled for this. Request hospice informational meeting since patient did not express understanding of the beneficial role they can play. This will need to be done outpatient. Exam Vital Signs (past 8 hours): - 08/30/19 04:00 Temperature 97.5 F L Pulse Rate 61 Respiratory Rate 18 Blood Pressure 112/78 Pulse Oximetry 96 Oxygen Delivery Method Room Air Oxygen Flow Rate 0 Narrative Exam Narrative: General: Chronically ill-appearing female wished shaved head, no acute distress, truncal obesity with muscle wasting in her arms and legs Head: hair is shaved with a small amout of regrowth, cranotomy incision is well healed Heart: Regular rate and rhythm, no murmurs appreciated Lungs: Clear to auscultation bilaterally, no wheezes, rales or rhonchi Abd: Bowel tones active, soft, nontender Extremities: Warm, no edema Objective Labs Result Diagrams: 08/29/19 05:01 08/29/19 05:01 Discharge Plan Discharge Plan Patient Disposition: SNF Transfer to: [facility] Under care of provider: Dr. Webster Transportation: Wheelchair Consult as needed: Dental, Hearing, Mental health, Podiatry and Vision I certify the postop hospital snf care is medically necessary on a continuing basis for any conditions for which he/ she received care during this hospitalization.: Yes The receiving facility has agreed to accept transfer and provide medical treatment.: Yes Discharge Med Rec/Prescriptions Prescriptions: New scopolamine base [Transderm-Scop] 1 mg over 3 days Patch 3 Day 1 patch topical Q72H Qty: 4 RF: 0 prochlorperazine maleate [Compazine] 10 mg tablet 10 mg PO Q6H PRN (Reason: nausea and vomiting) Qty: 10 RF: 0 lorazepam 1 mg tablet 1 mg PO Q6H PRN (Reason: nausea and vomiting) Qty: 30 RF: 0 Lantus Solostar U-100 Insulin 100 unit/mL (3 mL) Insulin Pen 30 unit subcut DAILY Qty: 1 RF: 0 Lantus Solostar U-100 Insulin 100 unit/mL (3 mL) Insulin Pen 25 unit subcut BEDTIME Qty: 1 RF: 0 Continued (DME) True Brand Glucometer Qty: 1 RF: 0 (DME) insulin syringe-needle U-100 [Advocate Syringes] 0.5 mL 30 gauge x 5/16 syringe See Dose Instructions .ROUTE .MEDSUPPLY Qty: 300 RF: 0 atorvastatin 40 mg tablet 40 mg PO QPM Qty: 90 RF: 3 (DME) True Brand test strips Qty: 100 RF: 1 sulfamethoxazole-trimethoprim 800-160 mg tablet 1 tab PO DAILY Qty: 30 RF: 0 pantoprazole 40 mg tablet,delayed release (DR/EC) 40 mg PO DAILY RF: 0 calcium carbonate [Calcium Antacid] 200 mg calcium (500 mg) tablet,chewable 400 mg PO TID RF: 0 polyethylene glycol 3350 17 gram/dose powder 0 g PO DIRECTED RF: 0 insulin lispro [Humalog KwikPen Insulin] 100 unit/mL insulin pen 0 unit SUBCUT DIRECTED RF: 0 acetaminophen 500 mg tablet 0 mg PO DIRECTED RF: 0 Changed sertraline 100 mg tablet 100 mg PO BEDTIME Qty: 30 RF: 2 dexamethasone 4 mg tablet 4 mg PO TID Qty: 0 RF: 0 Discontinued ondansetron 8 mg tablet,disintegrating 8 mg PO TID PRN (Reason: nausea and vomiting) Qty: 30 RF: 1 metformin 500 mg tablet 1,000 mg PO BID RF: 0 Other Ambulatory Orders: Complete Blood Count Auto Diff (Stat) Timeframe: 5 Days Facility: [facility] - Location: Laboratory Ordered By: Kingston Beatty Comprehensive Metabolic Panel (Stat) Timeframe: 5 Days Facility: [facility] - Location: Laboratory Ordered By: Kingston Beatty Follow up/Referrals: Daniel Bernal MD [Physician] - (Call to schedule for next chemotherpay) Merari Yen DO [Primary Care Provider] - Discharge Health Status Brief summary of current health status: Weak. Deconditioned. Multidrug resistant organism: No MDRO MDRO Verified by culture: No Precautions: [place] Provider Discharge Instructions Diet: Diet as Tolerated and Carb-consistent/Diabetic Liquid consistency: Normal/Thin Food texture: Blenderized or pureed Catheter: 2-way [facility] Reason for rehabilitation: Recovery r/t decondition Rehab type: Physical therapy, Occupational therapy and Speech therapy Visit Report/Discharge Packet Instructions: DI for Chemotherapy -- Adult, How to Prevent Falls, DI for Muscle Weakness, Nausea and Vomiting-Adult Discharge Data Primary Care Provider: Merari Yen Attending Provider: Merari Yen Admit Date/Time: 08/23/19 17:16 Discharges patient from system. Discharge Date/Time: 08/30/19 10:45 Quality VTE Deep Vein Thrombosis/Pulmonary Embolism Present on Admission: No
--- NOTE | 2019-08-30 09:12 | CM.DPC ---
DCP Cont: Faxed signed med list, PASRR and discharge summary to [facility] at fax # [phone]. Fax confirmation scanned in. Tiarra Lott, Sarah Adjunct Professor Of Voice
[2019-08-30] MEDS: INSULIN GLARGINE 100 UNIT/ML 3ML PEN 30 UNIT SUBCUT (09:44)
[2019-08-30] MEDS: INSULIN ASPART 100 UNIT/ML INSULN PEN SUBCUT (09:46)
[2019-08-30] MEDS: ENOXAPARIN 40 MG/0.4 ML SYRINGE SUBCUT (09:49)
[2019-08-30 09:50] VITALS: O2SAT 97
[2019-08-30] MEDS: TRIMETH/SULFA 160/800 (DS) TABLET 1 TAB PO (09:50)
[2019-08-30] MEDS: SERTRALINE 50 MG TABLET 100 MG PO (09:50)
[2019-08-30] MEDS: PANTOPRAZOLE 40 MG TABLET PO (09:50)
--- NOTE | 2019-08-30 10:55 | PC.NURSE ---
Addendum entered by Nadia Patel R.N. 08/30/19 11:50: Pt left unit via wheelchair with [facility] transport at 1045 in no distress with all belongings and discharge paperwork and summary. Pt stated that she had already let her daughter Rhonda know that she was being transported to [facility] today. Addendum entered by Nadia Patel R.N. 08/30/19 11:09: [facility] also aware to replace tejeda tubing attached to overnight bag around 1600 when chemotherapy precautions complete. Verbal order received from Dr. Yne this AM. Original Note: Day Shift- Pt denied shortness of breath, pain, nausea, tolerated approx 50% of breakfast. Took pills whole with water without difficulty. Midline removed by ELVIA Santillan Coordinator without difficulty. Removed per verbal order by Dr. Yen this AM prior to discharge. Pt transferred to transport wheelchair with 2PA, pt had difficulty moving forward LLE, needed physical assistance by this RN. Report called to [facility], spoke with Lise at 1050. Reported that pt may need to by harrison lift from wheelchair to bed upon arrival. Pt given back her home medications bottles retrieved from pharmacy, see discharge worklist for list of medications.
== END 2019-08-30 10:45 ==
LOC: ED 16:48 → AC 17:23
PROVIDERS: Admitting Provider Family Medicine; Emergency Provider Emergency Medicine; PCP Family Medicine; Visit Provider Family Medicine
DX: C71.3 Malignant neoplasm of parietal lobe (principal); R53.1 Weakness; R11.2 Nausea with vomiting, unspecified; E11.65 Type 2 diabetes mellitus with hyperglycemia; Z79.4 Long term (current) use of insulin; E86.0 Dehydration
CPT/HCPCS: 36415; 70470; 80048; 80053; 81003; 81015; 82962; 83605; 83690; 83735; 85025; 85610; 85730; 96361; 96365; 96366; 96372; 96375; 96376; 97162; 97165; 97530; 97535; 99217; 99220; 99225; 99226; 99233; 99284; 99285; G0378; C9113; J0780; J1100; J1642; J1650; J2060; J2405; J9035

== ENCOUNTER 2019-09-24 13:21 | Inpatient (IN) | payer OTHER, MEDICAID, SELFPAY ==
[2019-08-23 18:13] VITALS: BMI 28.9
[2019-09-24] VITALS (10 sets, daily range): BP systolic 122–156; BP diastolic 81–109; PULSE 132–149; RESP 12–20; TEMP 36.1–37.6; O2SAT 96–99; BMI 29.7
--- NOTE | 2019-09-24 14:13 | ED.AMS ---
HPI - Altered Mental Status General Chief Complaint: Altered Mental Status Stated Complaint: Decreased LOC Time Seen by Provider: 09/24/19 13:27 Source: patient and EMS Mode of arrival: EMS Limitations: altered mental status History of Present Illness HPI narrative: Patient was brought to the emergency department by EMS after being found to altered mental status at her care facility for the last 24 hours. The patient is currently being treated with chemotherapy for a recurrent glioblastoma. The patient states that she was vomiting earlier but is not currently now. When asked what is bothering her, she states ?my stomach?, but cannot specify whether it is pain nausea that she is experiencing. Patient is not sure if she has had fevers. She denies cough, chest pain, or shortness of breath. No dysuria. Patient is also a diabetic and has a history of hyperlipidemia. She denies any other complaints at this time, and is not able to offer any further information. Related Data Allergies Allergy/AdvReac Type Severity Reaction Status Date / Time promethazine [From PHENERGAN] Allergy Severe HIVES Verified 09/24/19 13:31 Review of Systems Constitutional Constitutional: Denies chills, Denies fatigue, Denies fever(s), Denies frequent falls, Denies lethargy and Denies weakness Eyes Eyes: Denies change in vision, Denies eye discharge, Denies irritation and Denies loss of vision ENT Ears, Nose, Mouth, and Throat: Denies change in voice, Denies dizziness, Denies neck pain, Denies sore throat and Denies throat swelling Cardiovascular Cardiovascular: Denies chest pain, Denies irregular heart rhythm, Denies lightheadedness, Denies palpitations, Denies dyspnea, Denies dyspnea on exertion and Denies orthopnea Respiratory Respiratory: Denies cough, Denies dyspnea, Denies dyspnea on exertion and Denies wheezing Gastrointestinal Gastrointestinal: Reports abdominal pain, Denies change in bowel habits, Denies diarrhea, Reports nausea and Reports vomiting Genitourinary Genitourinary: Denies hematuria, Denies flank pain, Denies urinary incontinence and Denies urinary urgency Musculoskeletal Musculoskeletal: Denies back pain, Denies muscle weakness, Denies neck pain, Denies numbness and Denies tingling Integumentary/Breasts Skin/Breast: Denies pruritus, Denies erythema, Denies rash and Denies wounds Neurologic Neurologic: Denies behavioral changes, Denies confusion, Denies dizziness, Denies frequent falls, Denies loss of vision, Denies numbness, Denies tingling and Denies weakness Psychiatric Psychiatric: Denies anxiety, Denies behavioral changes, Denies confusion, Denies depression, Denies homicidal ideation and Denies suicidal ideation Endocrine Endocrine: Denies fatigue, Denies flushing and Denies palpitations Hematologic/Lymphatic Hematologic/Lymphatic: Denies easy bruising Allergic/Immunologic Allergic/Immunologic: Denies urticaria, Denies throat swelling and Denies wheezing Patient History Medical History Anxiety disorder (Chronic) Chronic back pain (Chronic) Diabetes (Chronic) Glioblastoma multiforme of parietal lobe (Acute ~02/2019) HTN (hypertension) (Chronic) Hyperlipidemia (Chronic) Obesity (Chronic) Polyneuropathy (05/20/15) Tibial plateau fracture (Resolved) Uncontrolled diabetes mellitus type 2 without complications (06/17/15) Surgical History History of carpal tunnel repair (Resolved 11/06/15) History of craniotomy (Resolved ~02/2019) History of liver biopsy (Resolved 2000) History of tonsillectomy (Resolved 1988) Status post tubal ligation (Resolved 1999) Status post vaginal hysterectomy (Resolved 2004) Family History Father Diabetes mellitus Mother Diabetes mellitus Hypothyroid Grandfather COPD (chronic obstructive pulmonary disease) Grandmother CAD (coronary artery disease) [place] (myocardial infarction) Social History household members: significant other and family Smoking Status: Former smoker alcohol intake: never substance use type: does not use alcohol intake frequency: 0-2 drinks per day Substance Use Type: does not use Exam Initial Vital Signs Initial Vital Signs: Vital Signs Temperature 98.0 F 09/24/19 13:28 Pulse Rate 136 H 09/24/19 13:28 Respiratory Rate 13 09/24/19 13:28 Blood Pressure 122/96 H 09/24/19 13:28 Pulse Oximetry 96 09/24/19 13:28 Const General: cooperative and well developed Nutritional Appearance: well nourished Orientation: awake (The patient is drowsy but arousable.) Limitations: altered mental status Other: The patient answers questions simply and does not elaborate. She quickly closes her eyes again after giving a short answer to questions. [facility] Head: normocephalic and atraumatic Ears: external ears normal Nose: external nose normal and No nasal discharge Face and sinus: face symmetric and No dry mucous membranes Mouth: oral mucosae normal and moist mucous membranes Teeth and gingiva: dentition normal Eyes General: appearance normal, both eyes and all related structures Eyelids: eyelids normal Conjunctivae: conjunctivae normal Sclera: sclerae normal Pupils: PERRL EOM: EOM intact bilaterally Neck Neck: normal visual inspection, trachea midline, No lymphadenopathy, No midline deformity and No JVD Lymphatic: No lymphedema Chest Chest: normal inspection of the chest Resp Effort & Inspection: normal respiratory effort, able to speak in complete sentences, no respiratory distress and no use of accessory muscles Auscultation: clear to auscultation bilaterally, no rales, no rhonchi and no wheezes Cardio Rate: tachycardic Rhythm: regular rhythm Heart Sounds: no click, no gallops, no murmurs and no rubs Pulses: normal peripheral pulses GI Inspection: non-distended Palpation: soft, no hepatosplenomegaly, No guarding, No pulsatile mass and No tender Auscultation: normal bowel sounds Back/Spine/Pelvis Back: No CVA tenderness Cervical Spine: cervical ROM normal and No pain with cervical ROM Thoracic/Lumbar Spine: thoracic and lumbar spine normal to inspection Skin General: no rashes or lesions noted, No jaundice and No petechiae Neuro General: awake Other: Patient's cranial nerves are grossly intact. She does not have any gross deficits and is moving all 4 extremities, though not vigorously. She is not able to comply with a full and complete neurologic exam. Extrem General: full ROM, no clubbing, cyanosis or edema, no pedal edema and no calf tenderness Psych Appearance: well kempt Mental Status: mental status grossly normal Attitude: cooperative Thought Content: normal and suicidality Judgment: judgment good Course Course Course Narrative: Patient was worked up in the emergency department labs, EKG, urinalysis, CT head and ultimately, CT angiogram of the chest. She was persistently tachycardic in the emergency department, despite fluids, and found to have pulmonary emboli. She was started on Lovenox, and I spoke with Dr. Alvarenga, who agreed to admit the patient to her service. Orders Ordered: Discontinued Medications Acetaminophen (Tylenol) 650 mg PO Q6HR PRN PRN Reason: As Needed for Fever/Mild Pain Atorvastatin Calcium (Lipitor) 40 mg PO QPM SHUBHAM Calcium Carbonate (Tums) 1,000 mg PO Q4HR PRN PRN Reason: Dyspepsia Dexamethasone (Decadron) 2 mg PO DAILY SHUBHAM Dexamethasone (Decadron) 3 mg PO DAILY SHUBHAM Dextrose (D50w) 25 gm IV PRN PRN PRN Reason: Hypoglycemia Docusate Sodium (Colace) 100 mg PO BID PRN PRN Reason: constipation Enoxaparin Sodium (Lovenox) 90 mg 1 mg/kg (90 mg) SUBCUT NOW ONE Stop: 09/24/19 18:05 Last Admin: 09/24/19 18:21 Dose: 90 mg Documented by: IVONE Enoxaparin Sodium (Lovenox) 90 mg 1 mg/kg (90 mg) SUBCUT BID SHUBHAM Sodium Chloride (Normal Saline 0.9%) 1,000 mls @ 1,000 mls/hr IV BOLUS ONE Stop: 09/24/19 15:10 Last Infusion: 09/24/19 16:09 Dose: 0 mls/hr Documented by: Admin: 09/24/19 14:27 Dose: 1,000 mls/hr Documented by: IVONE Sodium Chloride (Normal Saline 0.9%) 1,000 mls @ 1,000 mls/hr IV BOLUS ONE Stop: 09/24/19 17:04 Last Infusion: 09/24/19 18:40 Dose: 0 mls/hr Documented by: Admin: 09/24/19 16:21 Dose: 1,000 mls/hr Documented by: IVONE Potassium Chloride 20 meq/ (Sodium Chloride) 1,010 mls @ 150 mls/hr IV CONT SHUBHAM Last Admin: 09/24/19 21:23 Dose: 150 mls/hr Documented by: RAJEEV Cosigned by: JENAE Sodium Chloride (Normal Saline 0.9%) 500 mls @ 1,000 mls/hr IV BOLUS ONE Stop: 09/24/19 20:35 Last Infusion: 09/24/19 21:29 Dose: 0 mls/hr Documented by: Admin: 09/24/19 20:26 Dose: 1,000 mls/hr Documented by: RAJEEV Sodium Chloride (Normal Saline 0.9%) 500 mls @ 1,000 mls/hr IV BOLUS ONE Stop: 09/24/19 22:15 Last Admin: 09/24/19 22:16 Dose: 1,000 mls/hr Documented by: RAJEEV Ibuprofen (Advil) 600 mg PO Q6HR PRN PRN Reason: As Needed for Fever/Mild Pain Influenza Virus Vaccine (Flu Vaccine) 0.5 ml IM .ONCE ONE Stop: 09/24/19 19:05 Insulin Aspart (Novolog Flexpen) 0 unit SUBCUT ACHS SHUBHAM; Protocol Last Admin: 09/24/19 21:24 Dose: 5 unit Documented by: RAJEEV Cosigned by: JENAE Insulin Glargine (Lantus Solostar (Pen)) 20 unit SUBCUT BEDTIME SHUBHAM Insulin Glargine (Lantus Solostar (Pen)) 30 unit SUBCUT DAILY SHUBHAM Insulin Glargine (Lantus Solostar (Pen)) 15 unit SUBCUT BEDTIME SHUBHAM Last Admin: 09/24/19 21:25 Dose: 15 unit Documented by: RAJEEV Iglesiasigned by: JENAE Lorazepam (Ativan) 1 mg PO Q6H PRN PRN Reason: nausea and vomiting Morphine Sulfate (Morphine) 2 mg IV Q2HR PRN PRN Reason: Pain, Moderate (4-6) Last Admin: 09/24/19 20:39 Dose: 2 mg Documented by: RAJEEV Morphine Sulfate (Morphine) 2 mg IV NOW ONE Stop: 09/24/19 21:48 Last Admin: 09/24/19 22:13 Dose: 2 mg Documented by: RAJEEV Ondansetron HCl (Zofran) 4 mg IV Q8HR PRN PRN Reason: Nausea And Vomiting Pantoprazole Sodium (Protonix) 40 mg PO DAILY SHUBHAM Prochlorperazine (Compazine) 10 mg PO Q6H PRN PRN Reason: nausea and vomiting Scopolamine (Transderm-Scop) 1 patch TOP Q72H [facility] Last Admin: 09/24/19 20:39 Dose: 1 patch Documented by: RAJEEV Sertraline HCl (Zoloft) 100 mg PO BEDTIME [facility] Last Admin: 09/24/19 21:27 Dose: Not Given Documented by: RAJEEV Vital Signs Vital signs: Vital Signs - 8 hr 09/24/19 13:28 09/24/19 14:26 09/24/19 15:30 Temperature 98.0 F Pulse Rate 136 H 145 H 141 H Respiratory Rate 13 15 Blood Pressure 122/96 H Blood Pressure [Left Arm] 124/85 144/106 H Pulse Oximetry 96 96 96 09/24/19 16:08 Temperature Pulse Rate 141 H Respiratory Rate 16 Blood Pressure Blood Pressure [Left Arm] 141/97 H Pulse Oximetry 97 MDM - Altered Mental Status Medical Records Attestation: I reviewed the patient's medical records. Lab Data Attestation: I reviewed the patient's lab results. Result diagrams: 09/24/19 13:42 09/24/19 13:42 Labs: Lab Results 09/24/19 09/24/19 09/24/19 Range/Units 13:42 13:42 13:42 WBC 13.4 H (4.5-11.0) X10^3/uL RBC 5.70 H (4.0-5.2) X10^6/uL Hgb 16.4 H (12.0-16.0) g/dL Hct 49.3 H (36-46) % MCV 86.5 (80-100) fL MCH 28.9 (26-34) PG MCHC 33.4 (30-36) % RDW 15.8 H (11.6-14.8) % Plt Count 173 (150-400) X10^3/uL Neut % (Auto) 70.8 (50-75) % Lymph % (Auto) 18.0 L (25-40) % Holmes % (Auto) 9.8 (3-14) % Eos % (Auto) 1.0 L (2-4) % Baso % (Auto) 0.4 (0-2) % Neut # (Auto) 9500 H (2159-3619) /uL Lymph # (Auto) 2400 (0205-7634) /uL Holmes # (Auto) 1300 H (0-900) /uL Eos # (Auto) 100 (0-450) /uL Baso # (Auto) 0 (0-100) /uL ABG pH (7.35-7.45) ABG pCO2 (35-45) mmHg ABG pO2 (80-100) mmHg ABG HCO3 (22-26) mmol/L ABG Total CO2 (21-31) mmol/L ABG O2 Saturation (95-100) % ABG Base Excess (-2-2) mmol/L FiO2 Sodium 142 (137-145) mmol/L Potassium 3.8 (3.4-5.1) mmol/L Chloride 107 (98-107) mmol/L Carbon Dioxide 23 (22-32) mmol/L BUN 23 H (7-17) mg/dL Creatinine 0.60 (0.52-1.04) mg/dL Estimated GFR > 60.0 (>60) mL/min BUN/Creatinine Ratio 38.3 H (6-22) Glucose 313 H (70-100) mg/dL Lactate 2.6 H (0.7-2.1) mmol/L Calcium 10.1 (8.4-10.2) mg/dL Total Bilirubin 1.1 (0.2-1.3) mg/dL AST 34 (14-36) IU/L ALT 72 H (<35) IU/L Alkaline Phosphatase 134 H (38-126) U/L Total Protein 7.7 (6.3-8.2) g/dL Albumin 4.4 (3.5-5.0) g/dL Globulin 3.3 (1.7-4.1) g/dL Albumin/Globulin Ratio 1.3 (1.0-2.8) Urine Color Urine Appearance Urine pH (4.5-8.0) Ur Specific [place] (1.000-1.035) Urine Protein (Negative) Urine Glucose (UA) (Negative) g/dL Urine Ketones (NEGATIVE) Urine Occult Blood (Negative) Urine Nitrate (Negative) Urine Bilirubin (NEGATIVE) Urine Urobilinogen (0.2) E.U./dL Ur Leukocyte Esterase (NEGATIVE) Urine RBC (0-5/HPF) Urine WBC (0-5/HPF) Ur Squamous Epith Cells (0-5/HPF) Amorphous Sediment Urine Bacteria (None) Ur Culture Indicated? U Morph 300 ng/mL cutoff (Negative) Ur Oxycodone Screen (Negative) Urine Methadone Screen (Negative) Acetaminophen (10-30) ug/mL Ur Barbiturates Screen (Negative) U Tricyclic Antidepress (Negative) Ur Phencyclidine Scrn (Negative) Ur Amphetamines Screen (Negative) U Methamphetamines Scrn (Negative) Ur MDMA Scrn (Ecstasy) (Negative) U Benzodiazepines Scrn (Negative) Urine Cocaine Screen (Negative) U Marijuana (THC) Screen (Negative) Ethyl Alcohol ( - 10) mg/dL Influenza A & B (PCR) (Negative) 09/24/19 09/24/19 09/24/19 Range/Units 13:42 14:48 16:28 WBC (4.5-11.0) X10^3/uL RBC (4.0-5.2) X10^6/uL Hgb (12.0-16.0) g/dL Hct (36-46) % MCV (80-100) fL MCH (26-34) PG MCHC (30-36) % RDW (11.6-14.8) % Plt Count (150-400) X10^3/uL Neut % (Auto) (50-75) % Lymph % (Auto) (25-40) % Holmes % (Auto) (3-14) % Eos % (Auto) (2-4) % Baso % (Auto) (0-2) % Neut # (Auto) (1971-8480) /uL Lymph # (Auto) (3730-4204) /uL Holmes # (Auto) (0-900) /uL Eos # (Auto) (0-450) /uL Baso # (Auto) (0-100) /uL ABG pH 7.35 (7.35-7.45) ABG pCO2 32.9 L (35-45) mmHg ABG pO2 79 L (80-100) mmHg ABG HCO3 18 L (22-26) mmol/L ABG Total CO2 19 L (21-31) mmol/L ABG O2 Saturation 95 (95-100) % ABG Base Excess -7.0 L (-2-2) mmol/L FiO2 0.21 Sodium (137-145) mmol/L Potassium (3.4-5.1) mmol/L Chloride (98-107) mmol/L Carbon Dioxide (22-32) mmol/L BUN (7-17) mg/dL Creatinine (0.52-1.04) mg/dL Estimated GFR (>60) mL/min BUN/Creatinine Ratio (6-22) Glucose (70-100) mg/dL Lactate (0.7-2.1) mmol/L Calcium (8.4-10.2) mg/dL Total Bilirubin (0.2-1.3) mg/dL AST (14-36) IU/L ALT (<35) IU/L Alkaline Phosphatase (38-126) U/L Total Protein (6.3-8.2) g/dL Albumin (3.5-5.0) g/dL Globulin (1.7-4.1) g/dL Albumin/Globulin Ratio (1.0-2.8) Urine Color Yellow Urine Appearance Clear Urine pH 5.0 (4.5-8.0) Ur Specific [place] 1.020 (1.000-1.035) Urine Protein Negative (Negative) Urine Glucose (UA) 2+ H (Negative) g/dL Urine Ketones Negative (NEGATIVE) Urine Occult Blood Negative (Negative) Urine Nitrate Negative (Negative) Urine Bilirubin Negative (NEGATIVE) Urine Urobilinogen 0.2 (0.2) E.U./dL Ur Leukocyte Esterase Negative (NEGATIVE) Urine RBC None seen (0-5/HPF) Urine WBC 0-1/hpf (0-5/HPF) Ur Squamous Epith Cells 0-1 /hpf (0-5/HPF) Amorphous Sediment 2+ Urine Bacteria None seen (None) Ur Culture Indicated? Cult not indicated U Morph 300 ng/mL cutoff (Negative) Ur Oxycodone Screen (Negative) Urine Methadone Screen (Negative) Acetaminophen < 10 L (10-30) ug/mL Ur Barbiturates Screen (Negative) U Tricyclic Antidepress (Negative) Ur Phencyclidine Scrn (Negative) Ur Amphetamines Screen (Negative) U Methamphetamines Scrn (Negative) Ur MDMA Scrn (Ecstasy) (Negative) U Benzodiazepines Scrn (Negative) Urine Cocaine Screen (Negative) U Marijuana (THC) Screen (Negative) Ethyl Alcohol < 10 ( - 10) mg/dL Influenza A & B (PCR) (Negative) 09/24/19 09/24/19 Range/Units 16:37 17:55 WBC (4.5-11.0) X10^3/uL RBC (4.0-5.2) X10^6/uL Hgb (12.0-16.0) g/dL Hct (36-46) % MCV (80-100) fL MCH (26-34) PG MCHC (30-36) % RDW (11.6-14.8) % Plt Count (150-400) X10^3/uL Neut % (Auto) (50-75) % Lymph % (Auto) (25-40) % Holmes % (Auto) (3-14) % Eos % (Auto) (2-4) % Baso % (Auto) (0-2) % Neut # (Auto) (1379-2580) /uL Lymph # (Auto) (9565-9485) /uL Holmes # (Auto) (0-900) /uL Eos # (Auto) (0-450) /uL Baso # (Auto) (0-100) /uL ABG pH (7.35-7.45) ABG pCO2 (35-45) mmHg ABG pO2 (80-100) mmHg ABG HCO3 (22-26) mmol/L ABG Total CO2 (21-31) mmol/L ABG O2 Saturation (95-100) % ABG Base Excess (-2-2) mmol/L FiO2 Sodium (137-145) mmol/L Potassium (3.4-5.1) mmol/L Chloride (98-107) mmol/L Carbon Dioxide (22-32) mmol/L BUN (7-17) mg/dL Creatinine (0.52-1.04) mg/dL Estimated GFR (>60) mL/min BUN/Creatinine Ratio (6-22) Glucose (70-100) mg/dL Lactate (0.7-2.1) mmol/L Calcium (8.4-10.2) mg/dL Total Bilirubin (0.2-1.3) mg/dL AST (14-36) IU/L ALT (<35) IU/L Alkaline Phosphatase (38-126) U/L Total Protein (6.3-8.2) g/dL Albumin (3.5-5.0) g/dL Globulin (1.7-4.1) g/dL Albumin/Globulin Ratio (1.0-2.8) Urine Color Urine Appearance Urine pH (4.5-8.0) Ur Specific [place] (1.000-1.035) Urine Protein (Negative) Urine Glucose (UA) (Negative) g/dL Urine Ketones (NEGATIVE) Urine Occult Blood (Negative) Urine Nitrate (Negative) Urine Bilirubin (NEGATIVE) Urine Urobilinogen (0.2) E.U./dL Ur Leukocyte Esterase (NEGATIVE) Urine RBC (0-5/HPF) Urine WBC (0-5/HPF) Ur Squamous Epith Cells (0-5/HPF) Amorphous Sediment Urine Bacteria (None) Ur Culture Indicated? U Morph 300 ng/mL cutoff Negative (Negative) Ur Oxycodone Screen Negative (Negative) Urine Methadone Screen Negative (Negative) Acetaminophen (10-30) ug/mL Ur Barbiturates Screen Negative (Negative) U Tricyclic Antidepress Negative (Negative) Ur Phencyclidine Scrn Negative (Negative) Ur Amphetamines Screen Negative (Negative) U Methamphetamines Scrn Negative (Negative) Ur MDMA Scrn (Ecstasy) Negative (Negative) U Benzodiazepines Scrn Negative (Negative) Urine Cocaine Screen Negative (Negative) U Marijuana (THC) Screen Negative (Negative) Ethyl Alcohol ( - 10) mg/dL Influenza A & B (PCR) Negative (Negative) Point of Care Testing Glucose POC [address] scan - chest: Radiologist's impression: PROCEDURE: CT ANGIO CHEST PE PROTOCOL INDICATIONS: tachycardia, LOC TECHNIQUE: After the administration of intravenous contrast, 2 mm thick sections acquired from the pulmonary apices to the posterior costophrenic angles. 3-dimensional maximum intensity projection (MIP) coronal and sagittal reformats were then acquired through the thorax. For radiation dose reduction, the following was used: automated exposure control, adjustment of mA and/or kV according to patient size. COMPARISON: None. FINDINGS: Image quality: Excellent. Diagnostic to the level of the subsegmental pulmonary arteries. Pulmonary arteries: Bilateral segmental and subsegmental pulmonary emboli, (4/50, 61). Moderate volume of thrombi. RV diameter: 2.4 cm. LV diameter: 3.5 cm. RV to LV ratio: 0.7. No right heart strain. No pulmonary infarction. Lungs and pleura: Lungs are clear. No pleural effusions or pneumothorax. Central and peripheral airways are patent. Mediastinum: Heart size is normal, without pericardial effusion. No mediastinal or hilar adenopathy. Thoracic aorta is normal in caliber and enhancement. No acute aortic syndrome. Fluid in the esophagus. Small hiatal hernia. Bones and chest wall: No suspicious bony lesions. Ribs and thoracic spine appear intact throughout. Thyroid gland demonstrates a left hypodense thyroid nodule measuring 1 cm, (4/5). No axillary or supraclavicular adenopathy. Abdomen: Visualized upper abdominal solid organs appear normal in the early arterial phase of enhancement. IMPRESSION: 1. Moderate volume of bilateral segmental and subsegmental pulmonary emboli. -No pulmonary infarction. -No right heart strain. RV to LV ratio 0.7. 2. No acute airspace opacity. 3. Incidental left thyroid nodule measuring 1 cm. 4. Fluid in the esophagus. Comment: Findings of pulmonary emboli was discussed with Juliet Watkins MD at the time of dictation. Dictated by: Jack Hu M.D. on 09/24/2019 at 17:37 Approved by: Jack Hu M.D. on 09/24/2019 at 17:48 CT scan - head: Radiologist's impression: PROCEDURE: CT HEAD/BRAIN WO CON INDICATIONS: ALOC TECHNIQUE: Noncontrast 4.5 mm thick angled axial sections acquired from the foramen magnum to the vertex, with coronal and sagittal reformats. For radiation dose reduction, the following was used: automated exposure control, adjustment of mA and/or kV according to patient size. COMPARISON: [facility], CT, CT HEAD/BRAIN WO/W CON, 08/23/2019, 13:12. [facility], MR, MR BRAIN WITH/WITHOUT CONTRAST, 09/19/2019, 12:53. FINDINGS: Image quality: Diagnostic. CSF spaces: Basal cisterns are patent. Small amount of extra-axial fluid is evident underlying the bone flap, which is unchanged since the prior exam from 08/23/19. Ventricles are mildly prominent in size for the patient's age, but have not significantly changed since the prior study. Brain: Post surgical changes involving the right parietal lobe are again evident. Confluent areas of low attenuation are seen within the periventricular white matter of the supratentorial brain. No midline shift. No intracranial masses or hemorrhage. Hull-white matter interface is normal. Skull and face: Postoperative changes are again evident related to a right parietal craniotomy with bone flap is intact and unchanged. Sinuses: Visualized sinuses and mastoids are clear. IMPRESSION: 1. No acute intracranial hemorrhage. 2. Postoperative changes of the right parietal region are similar to the prior study. 3. Extensive white matter changes are similar to the prior exam. Dictated by: Kyree Licea M.D. on 09/24/2019 at 14:15 Approved by: Kyree Licea M.D. on 09/24/2019 at 14:18 Discharge Plan Departure Patient Disposition: Admitted As Inpatient Clinical Impression: Pulmonary emboli Qualifiers: Pulmonary embolism type: multiple subsegmental (without acute cor pulmonale) Qualified Code(s): I26.94 - Multiple subsegmental pulmonary emboli without acute cor pulmonale Discharge Date/Time: 09/24/19 18:55 Admit Date/Time: 09/24/19 18:02 Admit Provider: Esther Alvarenga
[2019-09-24 14:23] LABS: Lactate (Lactic Acid) 2.6 mmol/L (0.7-2.1)
[2019-09-24 14:24] LABS: Add Manual Diff / Slide Review NO; Alanine Aminotransferase 72 IU/L (<35); Albumin 4.4 g/dL (3.5-5.0); Albumin Globulin Ratio 1.3 (1.0-2.8); Alkaline Phosphatase 134 U/L (38-126); Aspartate Aminotransferase 34 IU/L (14-36); BUN Creatinine Ratio 38.3 (6-22); Basophils Absolute Auto 0 /uL (0-100); Basophils Percent Auto 0.4 % (0-2); Bilirubin Total 1.1 mg/dL (0.2-1.3); Blood Urea Nitrogen 23 mg/dL (7-17); Calcium 10.1 mg/dL (8.4-10.2); Carbon Dioxide 23 mmol/L (22-32); Chloride 107 mmol/L (98-107); Eosinophils Absolute Auto 100 /uL (0-450); Estimated Glomerular Filt Rate > 60.0 mL/min (>60); Globulin 3.3 g/dL (1.7-4.1); Glucose 313 mg/dL (70-100); HEMOLYSIS < 15 (0-50); Hematocrit 49.3 % (36-46); Hemoglobin 16.4 g/dL (12.0-16.0); Lymphocytes Absolute Auto 2400 /uL (1100-4500); Mean Corpuscular HGB Conc 33.4 % (30-36); Mean Corpuscular Hemoglobin 28.9 PG (26-34); Mean Corpuscular Volume 86.5 fL (80-100); Monocytes Absolute Auto 1300 /uL (0-900); Monocytes Percent Auto 9.8 % (3-14); Neutrophils Absolute Auto 9500 /uL (1500-7000); Neutrophils Percent Auto 70.8 % (50-75); Platelet Count 173 X10^3/uL (150-400); Potassium 3.8 mmol/L (3.4-5.1); Red Cell Distribution Width 15.8 % (11.6-14.8); Sodium 142 mmol/L (137-145); Total Protein 7.7 g/dL (6.3-8.2); White Blood Cell Count 13.4 X10^3/uL (4.5-11.0)
[2019-09-24] MEDS: SODIUM CHLORIDE 0.9% 1,000 ML 1000 ML IV ×2 (14:27→16:21)
[2019-09-24 14:49] LABS: Bacteria Urine None Seen; RBC Urine None Seen (0-5/HPF)
[2019-09-24 14:51] LABS: Appearance Urine UA CLEAR; Bilirubin Urine UA NEGATIVE (NEGATIVE); Color Urine UA YELLOW; Glucose Urine UA 2+ g/dL (Negative); Ketones Urine UA NEGATIVE (NEGATIVE); Leukocyte Esterase Urine UA NEGATIVE (NEGATIVE); Nitrite Urine UA NEGATIVE (Negative); Occult Blood Urine UA NEGATIVE (Negative); Protein Urine UA NEGATIVE (Negative); Urobilinogen Urine UA 0.2 E.U./dL (0.2)
[2019-09-24 14:58] LABS: Amorphous Sediment Urine 2+; Culture Indicated Urine Cult Not Indicated; Squamous Epithelial Cell Urine 0-1 /HPF (0-5/HPF); WBC Urine 0-1/HPF (0-5/HPF)
--- NOTE | 2019-09-24 16:05 | DI.CT.S_ITS ---
PROCEDURE: CT ANGIO CHEST PE PROTOCOL INDICATIONS: tachycardia, LOC TECHNIQUE: After the administration of intravenous contrast, 2 mm thick sections acquired from the pulmonary apices to the posterior costophrenic angles. 3-dimensional maximum intensity projection (MIP) coronal and sagittal reformats were then acquired through the thorax. For radiation dose reduction, the following was used: automated exposure control, adjustment of mA and/or kV according to patient size. COMPARISON: None. FINDINGS: Image quality: Excellent. Diagnostic to the level of the subsegmental pulmonary arteries. Pulmonary arteries: Bilateral segmental and subsegmental pulmonary emboli, (4/50, 61). Moderate volume of thrombi. RV diameter: 2.4 cm. LV diameter: 3.5 cm. RV to LV ratio: 0.7. No right heart strain. No pulmonary infarction. Lungs and pleura: Lungs are clear. No pleural effusions or pneumothorax. Central and peripheral airways are patent. Mediastinum: Heart size is normal, without pericardial effusion. No mediastinal or hilar adenopathy. Thoracic aorta is normal in caliber and enhancement. No acute aortic syndrome. Fluid in the esophagus. Small hiatal hernia. Bones and chest wall: No suspicious bony lesions. Ribs and thoracic spine appear intact throughout. Thyroid gland demonstrates a left hypodense thyroid nodule measuring 1 cm, (4/5). No axillary or supraclavicular adenopathy. Abdomen: Visualized upper abdominal solid organs appear normal in the early arterial phase of enhancement. IMPRESSION: 1. Moderate volume of bilateral segmental and subsegmental pulmonary emboli. -No pulmonary infarction. -No right heart strain. RV to LV ratio 0.7. 2. No acute airspace opacity. 3. Incidental left thyroid nodule measuring 1 cm. 4. Fluid in the esophagus. Comment: Findings of pulmonary emboli was discussed with Juliet Watkins MD at the time of dictation. Dictated by: Jack Hu M.D. on 09/24/2019 at 17:37 Approved by: Jack Hu M.D. on 09/24/2019 at 17:48
[2019-09-24 16:14] LABS: Reflexed Lactate in 2 Hours Y
[2019-09-24 16:31] LABS: Acetaminophen < 10 ug/mL (10-30); Ethanol (ETOH) < 10 mg/dL
--- NOTE | 2019-09-24 16:51 | PC.NURSE ---
Attempted to place AC PIV for PE Study, unsuccessful attempt. Second RN to attempt. Dr. Watkins aware.
--- NOTE | 2019-09-24 16:53 | PC.NURSE ---
radiologic technology instructor tried 3 times to draw second set of blood cultures. Dr. Watkins is aware that second set was not able to be drawn at this time.
[2019-09-24 17:10] LABS: Influenza A and B by PCR Rapid Negative (Negative)
[2019-09-24 17:30] LABS: Fractionated Inspired Oxygen 0.21; HCO3 ABG 18 mmol/L (22-26); Oxygen Saturation ABG 95 % (95-100); PCO2 ABG 32.9 mmHg (35-45); PO2 ABG 79 mmHg (80-100); TCO2 ABG 19 mmol/L (21-31); pH ABG 7.35 (7.35-7.45)
--- NOTE | 2019-09-24 18:08 | PC.NURSE ---
Per , placed tejeda catheter for admission to hospital.
--- NOTE | 2019-09-24 18:09 | PC.NURSE ---
When Osei placed, immediately had 2600 mL out. Catheter clamped. Patient found to have dime sized abrasion on knee, placed dressing on it. Pt also has three small areas of open skin break down on her left buttox.
[2019-09-24] MEDS: ENOXAPARIN 100 MG/ML SYRINGE 90 MG SUBCUT (18:21)
[2019-09-24 18:24] LABS: Ur Creatinine Normal (Normal); Ur Specific Gravity Normal (Normal); Urine pH Normal (Normal)
[2019-09-24 18:26] LABS: UR Morphine/Opiate cutoff 300 Negative (Negative); Urine Amphetamines Negative (Negative); Urine Barbiturates Negative (Negative); Urine Benzodiazepines Negative (Negative); Urine Cocaine Negative (Negative); Urine MDMA Negative (Negative); Urine Methadone Negative (Negative); Urine Methamphetamines Negative (Negative); Urine Oxycodone Negative (Negative); Urine Phencyclidine Negative (Negative); Urine Tetrahydrocannabinol Negative (Negative); Urine Tricyclic Antidepressant Negative (Negative)
--- NOTE | 2019-09-24 18:36 | PC.NURSE ---
Called Rhonda (Daughter [phone]) and updated on patients condition.
--- NOTE | 2019-09-24 19:21 | PC.NURSE ---
Addendum entered by Marina Calloway R.N. 09/24/19 19:26: There are three small openings at the top of tailbone, in triangle formation and all three very small. Original Note: Admitted to [facility] 216 from ER Alert, denies discomfort at this time Lungs clear, diminished at bases, SpO2 92% RA On admit dsg to the left knee/burris for apparent skin tear CDI. Pt skin appears dry/flakey in spots. Pt requesting to rest at this time. Call light w/in reach, bed alarm on for pt safety.
--- NOTE | 2019-09-24 19:55 | P.HP_ITS ---
History of Present Illness History of Present Illness Date Patient Seen: 09/24/19 Time Patient Seen: 19:35 Chief complaint: Decreased LOC Narrative: Patient is a 49-year-old female who sees Dr. Yen with type 2 diabetes and glioblastoma status post resection now on chemotherapy. She currently lives at [facility] where her daughter also works as a ABA THERAPIST. Patient is unable to provide much of the history. Her daughter states she has been doing well with chemotherapy though it makes her hallucinate and have memory problems. She was in her usual state of health until this morning. Caregivers attempted to give her breakfast but she did not want to eat and seemed altered/less responsive. She has not had fevers, cough, shortness of breath, change in bowels or abdominal pain. EMS was called and she was brought to the emergency department. In the ER she was found to be dehydrated with an elevated white blood cell count and lactate though no obvious source of infection. Head CT was unchanged from prior. Chest CTA was remarkable for bilateral segmental and subsegmental pulmonary emboli. She was given 1.5 L of fluid as well as Lovenox. According to her daughter, she receives infusions every 2 weeks in [facility]. She believes her last infusion was last Wednesday so she is not due for another week. She has also been on a dexamethasone taper per Oncology, currently getting 3 mg daily per records from [facility]. Patient History Medical History Anxiety disorder (Chronic) Chronic back pain (Chronic) Diabetes (Chronic) Glioblastoma multiforme of parietal lobe (Acute ~02/2019) HTN (hypertension) (Chronic) Hyperlipidemia (Chronic) Obesity (Chronic) Polyneuropathy (05/20/15) Tibial plateau fracture (Resolved) Uncontrolled diabetes mellitus type 2 without complications (06/17/15) Surgical History History of carpal tunnel repair (Resolved 11/06/15) History of craniotomy (Resolved ~02/2019) History of liver biopsy (Resolved 2000) History of tonsillectomy (Resolved 1988) Status post tubal ligation (Resolved 1999) Status post vaginal hysterectomy (Resolved 2004) Family & Social History Family History Father Diabetes mellitus Mother Diabetes mellitus Hypothyroid Grandfather COPD (chronic obstructive pulmonary disease) Grandmother CAD (coronary artery disease) [place] (myocardial infarction) Social History: household members significant other,family Prior Living Arrangements Assisted Living Safety & Behavioral: Feels Safe in Current Yes Environment Been Physically Hurt or No Threatened By a Person Suicidal Ideation Description None Suicide Plan Description No Plan Tobacco & Substance use: Smoking Status Former smoker alcohol intake never alcohol intake frequency 0-2 drinks per day Substance Use Type does not use Meds Home Medications and Allergies Home Medications Medication Instructions Recorded Confirmed Type True Brand Glucometer #1 ea 06/21/18 09/24/19 Rx insulin syringe-needle U-100 0.5 #300 each 01/26/19 09/24/19 Rx mL 30 gauge x 04/06 True Brand test strips #100 each 03/13/19 09/24/19 Rx atorvastatin 40 mg tablet 40 mg PO QPM #90 tab 03/13/19 09/24/19 Rx insulin lispro [Humalog KwikPen 0 unit SUBCUT DIRECTED 08/23/19 09/24/19 History Insulin] pantoprazole 40 mg PO DAILY 08/23/19 09/24/19 History insulin glargine [Lantus Solostar 25 unit SUBCUT BEDTIME #1 vial 08/30/19 09/24/19 Rx U-100 Insulin] insulin glargine [Lantus Solostar 30 unit SUBCUT DAILY #1 vial 08/30/19 09/24/19 Rx U-100 Insulin] lorazepam 1 mg PO Q6H PRN #30 tab 08/30/19 09/24/19 Rx prochlorperazine maleate 10 mg PO Q6H PRN #10 tab 08/30/19 09/24/19 Rx [Compazine] scopolamine base [Transderm-Scop] 1 patch TOPICAL Q72H #4 each 08/30/19 09/24/19 Rx sertraline 100 mg PO BEDTIME #30 tab 08/30/19 09/24/19 Rx dexamethasone 1 mg PO DAILY 09/24/19 09/24/19 History dexamethasone 2 mg PO DAILY 09/24/19 09/24/19 History Allergies Allergy/AdvReac Type Severity Reaction Status Date / Time promethazine [From PHENERGAN] Allergy Severe HIVES Verified 09/24/19 13:31 Review of Systems Review of Systems Narrative: Patient is unable to provide review of systems Exam Vital Signs (past 8 hours): - 09/24/19 13:28 09/24/19 14:26 09/24/19 15:30 Temperature 98.0 F Pulse Rate 136 H 145 H 141 H Respiratory Rate 13 15 Blood Pressure 122/96 H Blood Pressure [Left Arm] 124/85 144/106 H Pulse Oximetry 96 96 96 09/24/19 16:08 09/24/19 18:06 09/24/19 18:53 Temperature Pulse Rate 141 H 138 H 132 H Respiratory Rate 16 18 19 Blood Pressure Blood Pressure [Left Arm] 141/97 H 142/105 H 156/109 H Pulse Oximetry 97 99 98 Oxygen Delivery Method Room Air Narrative Exam Narrative: General: Chronically ill-appearing woman, appears uncomfortable though denies pain. Resting in bed and grimacing intermittently. Provides short answers to questions. Oriented to self only. HEENT: Healed surgical scar. NCAT, EOMI, dry lips. CV: Regular rate with tachycardia, no murmurs Lungs: CTAB, no wheezes, rales, or rhonchi Abdomen: Soft, nontender; bowel tones active Extremities: Warm, no edema, 2+ pedal pulses bilaterally Neuro: Awake and alert though drowsy. Memory impaired. She does not remember this examiner from past visits. Judgment and insight impaired. Objective Imaging CTA chest: Radiologist's impression: IMPRESSION: 1. Moderate volume of bilateral segmental and subsegmental pulmonary emboli. -No pulmonary infarction. -No right heart strain. RV to LV ratio 0.7. 2. No acute airspace opacity. 3. Incidental left thyroid nodule measuring 1 cm. 4. Fluid in the esophagus. Comment: Findings of pulmonary emboli was discussed with Juliet Watkins MD at the time of dictation. Dictated by: Jack Hu M.D. on 09/24/2019 at 17:37 Approved by: Jack Hu M.D. on 09/24/2019 at 17:48 CT scan - head: Radiologist's impression: IMPRESSION: 1. No acute intracranial hemorrhage. 2. Postoperative changes of the right parietal region are similar to the prior study. 3. Extensive white matter changes are similar to the prior exam. Dictated by: Kyree Licea M.D. on 09/24/2019 at 14:15 Approved by: Kyree Licea M.D. on 09/24/2019 at 14:18 Labs Result Diagrams: 09/24/19 13:42 09/24/19 13:42 Labs: Laboratory Results - last 24 hr 09/24/19 09/24/19 09/24/19 13:42 13:42 13:42 WBC 13.4 H RBC 5.70 H Hgb 16.4 H Hct 49.3 H MCV 86.5 MCH 28.9 MCHC 33.4 RDW 15.8 H Plt Count 173 Neut % (Auto) 70.8 Lymph % (Auto) 18.0 L [place] % (Auto) 9.8 Eos % (Auto) 1.0 L Baso % (Auto) 0.4 Neut # (Auto) 9500 H Lymph # (Auto) 2400 [place] # (Auto) 1300 H Eos # (Auto) 100 Baso # (Auto) 0 ABG pH ABG pCO2 ABG pO2 ABG HCO3 ABG Total CO2 ABG O2 Saturation ABG Base Excess FiO2 Sodium 142 Potassium 3.8 Chloride 107 Carbon Dioxide 23 BUN 23 H Creatinine 0.60 Estimated GFR > 60.0 BUN/Creatinine Ratio 38.3 H Glucose 313 H Lactate 2.6 H Calcium 10.1 Total Bilirubin 1.1 AST 34 ALT 72 H Alkaline Phosphatase 134 H Total Protein 7.7 Albumin 4.4 Globulin 3.3 Albumin/Globulin Ratio 1.3 Urine Color Urine Appearance Urine pH Ur Specific [place] Urine Protein Urine Glucose (UA) Urine Ketones Urine Occult Blood Urine Nitrate Urine Bilirubin Urine Urobilinogen Ur Leukocyte Esterase Urine RBC Urine WBC Ur Squamous Epith Cells Amorphous Sediment Urine Bacteria Ur Culture Indicated? U Morph 300 ng/mL cutoff Ur Oxycodone Screen Urine Methadone Screen Acetaminophen Ur Barbiturates Screen U Tricyclic Antidepress Ur Phencyclidine Scrn Ur Amphetamines Screen U Methamphetamines Scrn Ur MDMA Scrn (Ecstasy) U Benzodiazepines Scrn Urine Cocaine Screen U Marijuana (THC) Screen Ethyl Alcohol Influenza A & B (PCR) 09/24/19 09/24/19 09/24/19 13:42 14:48 16:28 WBC RBC Hgb Hct MCV MCH MCHC RDW Plt Count Neut % (Auto) Lymph % (Auto) [place] % (Auto) Eos % (Auto) Baso % (Auto) Neut # (Auto) Lymph # (Auto) [place] # (Auto) Eos # (Auto) Baso # (Auto) ABG pH 7.35 ABG pCO2 32.9 L ABG pO2 79 L ABG HCO3 18 L ABG Total CO2 19 L ABG O2 Saturation 95 ABG Base Excess -7.0 L FiO2 0.21 Sodium Potassium Chloride Carbon Dioxide BUN Creatinine Estimated GFR BUN/Creatinine Ratio Glucose Lactate Calcium Total Bilirubin AST ALT Alkaline Phosphatase Total Protein Albumin Globulin Albumin/Globulin Ratio Urine Color Yellow Urine Appearance Clear Urine pH 5.0 Ur Specific [place] 1.020 Urine Protein Negative Urine Glucose (UA) 2+ H Urine Ketones Negative Urine Occult Blood Negative Urine Nitrate Negative Urine Bilirubin Negative Urine Urobilinogen 0.2 Ur Leukocyte Esterase Negative Urine RBC None seen Urine WBC 0-1/hpf Ur Squamous Epith Cells 0-1 /hpf Amorphous Sediment 2+ Urine Bacteria None seen Ur Culture Indicated? Cult not indicated U Morph 300 ng/mL cutoff Ur Oxycodone Screen Urine Methadone Screen Acetaminophen < 10 L Ur Barbiturates Screen U Tricyclic Antidepress Ur Phencyclidine Scrn Ur Amphetamines Screen U Methamphetamines Scrn Ur MDMA Scrn (Ecstasy) U Benzodiazepines Scrn Urine Cocaine Screen U Marijuana (THC) Screen Ethyl Alcohol < 10 Influenza A & B (PCR) 09/24/19 09/24/19 16:37 17:55 WBC RBC Hgb Hct MCV MCH MCHC RDW Plt Count Neut % (Auto) Lymph % (Auto) [place] % (Auto) Eos % (Auto) Baso % (Auto) Neut # (Auto) Lymph # (Auto) [place] # (Auto) Eos # (Auto) Baso # (Auto) ABG pH ABG pCO2 ABG pO2 ABG HCO3 ABG Total CO2 ABG O2 Saturation ABG Base Excess FiO2 Sodium Potassium Chloride Carbon Dioxide BUN Creatinine Estimated GFR BUN/Creatinine Ratio Glucose Lactate Calcium Total Bilirubin AST ALT Alkaline Phosphatase Total Protein Albumin Globulin Albumin/Globulin Ratio Urine Color Urine Appearance Urine pH Ur Specific [place] Urine Protein Urine Glucose (UA) Urine Ketones Urine Occult Blood Urine Nitrate Urine Bilirubin Urine Urobilinogen Ur Leukocyte Esterase Urine RBC Urine WBC Ur Squamous Epith Cells Amorphous Sediment Urine Bacteria Ur Culture Indicated? U Morph 300 ng/mL cutoff Negative Ur Oxycodone Screen Negative Urine Methadone Screen Negative Acetaminophen Ur Barbiturates Screen Negative U Tricyclic Antidepress Negative Ur Phencyclidine Scrn Negative Ur Amphetamines Screen Negative U Methamphetamines Scrn Negative Ur MDMA Scrn (Ecstasy) Negative U Benzodiazepines Scrn Negative Urine Cocaine Screen Negative U Marijuana (THC) Screen Negative Ethyl Alcohol Influenza A & B (PCR) Negative Assessment & Plan Assessment & Plan narrative: 49-year-old female with type 2 diabetes and glioblastoma status post resection now on chemotherapy now with bilateral pulmonary embolisms, acute encephalopathy and acute dehydration. She remains quite tachycardic despite 1.5 L of fluid in the ER. Pulmonary emboli: We will continue Lovenox which was initiated in the ER. She is currently on room air but will provide supplemental oxygen if needed. Acute dehydration: Patient still appears dry on exam despite fluid in the ER. Will bolus her again and continue her on maintenance fluids. Acute metabolic encephalopathy: Patient is oriented at baseline according to her daughter which is certainly not the case now. She is oriented only to self at this time and appears quite painful though denies pain. Her daughter states that she does not like pain medication and generally avoids it as much as possible. Elevated lactic acid: No evidence for infection. Patient has been afebrile. Blood cultures are pending. No pneumonia on CT. Urine was clean. Will repeat a level. Glioblastoma: Will need to check in with Oncology in the morning regarding her chemotherapy. Will continue dexamethasone 3 mg daily since this is what she has been getting at the care center. Type 2 diabetes: Continue Lantus though will decrease her dose since she has not been eating. Correct with a moderate sliding scale. Monitor blood sugars. Diet: Diabetic diet DVT prophylaxis: Patient is currently being treated for bilateral pulmonary embolisms. Code status: This was reviewed with her daughter who confirms patient's previous wishes of a trial of CPR but no intubation. Patient does not want to be hooked up to tubes. Disposition: Anticipate the care of this patient across at least 2 midnights to the severity of her above conditions and risk of deterioration. Quality VTE Deep Vein Thrombosis/Pulmonary Embolism Present on Admission: No
[2019-09-24] MEDS: SODIUM CHLORIDE 0.9% 500 ML 1000 ML IV ×2 (20:26→22:16)
[2019-09-24] MEDS: MORPHINE 2 MG/ML INJ IV ×2 (20:39→22:13)
[2019-09-24] MEDS: SCOPOLAMINE 1 PATCH TOP (20:39)
[2019-09-24 21:01] LABS: Lactate (Lactic Acid) 3.7 mmol/L (0.7-2.1)
[2019-09-24] MEDS: POTASSIUM CHLORIDE 20 MEQ in SODIUM CHLORIDE 0.9% 1,000 ML 150 MEQ IV (21:23)
[2019-09-24] MEDS: INSULIN ASPART 100 UNIT/ML INSULN PEN SUBCUT (21:24)
[2019-09-24] MEDS: INSULIN GLARGINE 100 UNIT/ML 3ML PEN 15 UNIT SUBCUT (21:25)
[2019-09-24 22:50] LABS: Reflexed Lactate in 2 Hours Y
--- NOTE | 2019-09-24 22:53 | PC.NURSE ---
Patient arrived to floor at approximately 1850, patient admitted and initial assessment by float ELVIA Majano. Patient alert to self and able to answer yes/no questions, focused assessment done at this time by primary RN. Patient hypertensive and tachycardic. MD aware. Orders for telemetry and continued fluid resuscitation. Pt resting comfortably and restless at times sleeping in between care. Telemetry system down and unable to connect patient to telemetry immediately, apical pulse taken and regular 130, per Dr Alvarenga, to monitor patient and call if HR greater than 160. At 1999 patient HR increase from 130 to 150 after brief change, apical pulse regular and 150's, BP WNL, patient very restless, patient expressed discomfort, unable to localize pain, FLACC score positive, 2mg of IV morphine given, and NS 500ml bolus per MD. Patient resting comfortably upon reassessment, apical HR sustained 140-150 regular, BP WNL. MD paged due to continued telemetry failure and sustained HR 140-150, patient restless again, verbal orders to transfer patient to ICU for hardwired telemetry monitoring, secondary NS 500ml bolus, and Morphine IV 2mg one time dose. At this time first NS 500ml bolus completed. Apical HR sustained 140's regular, BP WNL. Before transfer maintenance IV fluids initiated of NS with 20mEq of potassium at 150ml/hr, Scope patch on. Patient transferred to ICU and bedside report given to ELVIA Logan. Second NS bolus initiated in ICU and 2mg of IV Morphine given to patient d/t increased restlessness and positive FLACC score. Patient resting comfortably, decrease restlessness upon reassessment. This RN left patient bedside after report. ELVIA Logan to call if further questions/concerns.
--- NOTE | 2019-09-24 22:54 | PC.NURSE ---
2220- Patient arrived to room 105. Monitor shows sinus tachycardia, patient is non verbal and does not make eye contact. This is a change in her level of conciousness. Bolus infusing per order into left forearm IV. 02 on via nasal cannula at 2liter. Patient noted to have very dry mucous membranes. Patient is not responding to verbal stimuli. Left leg is swollen at the knee and her left foot is cold and no pulse can be palpated. Doppler pulse to the posterior tibial but none dorsal. Patient has been medicated with morphine per order. Pupils are 3mm. Dr. Alvarenga here to see patient she is consulting with the hospitalist await further orders.
--- NOTE | 2019-09-24 23:05 | P.DS_ITS ---
History of Present Illness History of Present Illness Date Patient Seen: 09/25/19 Time Patient Seen: 22:30 Chief complaint: Decreased LOC Narrative: Patient is a 49-year-old female with type 2 diabetes and glioblastoma status post partial resection now on Avastin infusions every 2 weeks. She currently lives at [facility] where her daughter also works as a CUSTOMER SUPPORT SPECIALIST. Patient is unable to provide much of the history. Her daughter states she has been doing well with chemotherapy though it makes her hallucinate and have memory problems. She was in her usual state of health until this morning. Caregivers attempted to give her breakfast but she did not want to eat and seemed altered and out of it. Daughter was working so not with her today. She has not had fevers, cough, shortness of breath, change in bowels or abdominal pain. EMS was called and she was brought to the emergency department. In the ER she was found to be dehydrated with an elevated white blood cell count and lactate though no obvious source of infection. Head CT was unchanged from prior. Chest CTA was remarkable for bilateral segmental and subsegmental pulmonary emboli. She was given 1.5 L of fluid as well as Lovenox and admitted for further treatment. According to her daughter, she receives Avastin infusions every 2 weeks in [facility]. She believes her last infusion was last Wednesday so she is not due for another week. She has also been on a dexamethasone taper per Oncology, currently getting 3 mg daily per records from [facility]. Discharge Providers Provider Date of admission: 09/24/19 18:02 Discharge Date: 09/25/19 Primary care physician: Merari Yen DO Discharge provider: Esther Alvarenga DO Summary Hospital Course Discharge Diagnosis: Bilateral pulmonary emboli Acute encephalopathy Acute dehydration Glioblastoma multiforme Type 2 diabetes Hospital Course: Patient was admitted with bilateral pulmonary emboli likely secondary to Avastin and started on Lovenox in the ER. She was tachycardic on admission and tachycardia persisted in the 130s-140s despite 2+ L of fluid and supplemental oxygen (though she was not hypoxic). She was responsive on admission though minimally so and oriented to self only. She received morphine for perceived pain with improvement in her affect. Tachycardia persisted despite morphine and a fluid bolus. Repeat lactate was higher at 3.7, up from 2.6 on admission. She was transferred to the ICU for closer monitoring. On assessment in the ICU, nursing noted absent dorsalis pedal pulse on the left. I was able to Doppler the left posterior tibial pulse but unable to get the dorsalis pedis. Feet were equally cool to the touch and pulses present on the right. The left lower extremity is notably larger from the proximal calf up and warm to touch. Ultrasound has not been accomplished yet to confirm DVT but I assume a DVT in the left leg. Patient will be transferred to [facility] in [place]. I spoke with Dr. Tristian Galicia who accepts the patient for transfer. I am concerned about persistent tachycardia despite fluids and risk of deterioration given increasing lactate level. We also do not have vascular surgery available at [facility] regarding absent pulses in her left foot though she does not appear to have critical limb ischemia at this time. She has no obvious source of infection, no pneumonia, normal urine, no fevers, no reports abdominal pain today. Blood cultures are pending. She has not been given antibiotics. At the time of transfer patient is minimally arousable though has had 2 doses of morphine 2 mg. She does open her eyes to touch but cannot answer questions. Heart rate continues in the 140s to 150s. Blood pressure is in the 130s over 80s. Oxygen saturations are 97% on 2 L of oxygen. Her daughter Brittanie Whitley is the main point of contact. Her number is [phone]. Status at Discharge Cognitive/behavioral status at discharge: confused Functional status at discharge: bed bound Time Spent with Patient Time spent: Greater than 30 minutes Exam Vital Signs (past 8 hours): - 09/24/19 15:30 09/24/19 16:08 09/24/19 18:06 Temperature Pulse Rate 141 H 141 H 138 H Respiratory Rate 15 16 18 Blood Pressure Blood Pressure [Left Arm] 144/106 H 141/97 H 142/105 H Pulse Oximetry 96 97 99 09/24/19 18:50 09/24/19 18:53 09/24/19 20:45 Temperature 97.5 F L Pulse Rate 139 H 132 H 140 H Respiratory Rate 12 19 Blood Pressure 133/84 150/89 H Blood Pressure [Left Arm] 156/109 H Pulse Oximetry 97 98 09/24/19 21:00 Temperature 97.0 F L Pulse Rate 138 H Respiratory Rate 20 Blood Pressure 150/89 H Blood Pressure [Left Arm] Pulse Oximetry 97 Oxygen Delivery Method Room Air Oxygen Flow Rate 2 Narrative Exam Narrative: General: Sleeping, opens eyes to touch in quickly goes back to sleep HEENT: NCAT, EOMI, moist oral mucosa CV: Tachycardic with rate of 140 Lungs: CTAB anteriorly Abdomen: Obese abdomen. Bowel tones present. Nontender to palpation. Extremities: Thin lower extremities. Right lower extremity is cool to the touch without edema. Left lower extremity is also cool to the touch. Notable edema of the left calf and left thigh. Warmth of the left calf. Pulses are not palpable on the left. Left posterior tibial pulse detected with Doppler though left dorsalis pedis absent with Doppler. Objective Labs Result Diagrams: 09/24/19 13:42 09/24/19 13:42 Labs: Laboratory Results - last 24 hr 09/24/19 09/24/19 09/24/19 13:42 13:42 13:42 WBC 13.4 H RBC 5.70 H Hgb 16.4 H Hct 49.3 H MCV 86.5 MCH 28.9 MCHC 33.4 RDW 15.8 H Plt Count 173 Neut % (Auto) 70.8 Lymph % (Auto) 18.0 L Moody % (Auto) 9.8 Eos % (Auto) 1.0 L Baso % (Auto) 0.4 Neut # (Auto) 9500 H Lymph # (Auto) 2400 Moody # (Auto) 1300 H Eos # (Auto) 100 Baso # (Auto) 0 ABG pH ABG pCO2 ABG pO2 ABG HCO3 ABG Total CO2 ABG O2 Saturation ABG Base Excess FiO2 Sodium 142 Potassium 3.8 Chloride 107 Carbon Dioxide 23 BUN 23 H Creatinine 0.60 Estimated GFR > 60.0 BUN/Creatinine Ratio 38.3 H Glucose 313 H Lactate 2.6 H Calcium 10.1 Total Bilirubin 1.1 AST 34 ALT 72 H Alkaline Phosphatase 134 H Total Protein 7.7 Albumin 4.4 Globulin 3.3 Albumin/Globulin Ratio 1.3 Urine Color Urine Appearance Urine pH Ur Specific [place] Urine Protein Urine Glucose (UA) Urine Ketones Urine Occult Blood Urine Nitrate Urine Bilirubin Urine Urobilinogen Ur Leukocyte Esterase Urine RBC Urine WBC Ur Squamous Epith Cells Amorphous Sediment Urine Bacteria Ur Culture Indicated? U Morph 300 ng/mL cutoff Ur Oxycodone Screen Urine Methadone Screen Acetaminophen Ur Barbiturates Screen U Tricyclic Antidepress Ur Phencyclidine Scrn Ur Amphetamines Screen U Methamphetamines Scrn Ur MDMA Scrn (Ecstasy) U Benzodiazepines Scrn Urine Cocaine Screen U Marijuana (THC) Screen Ethyl Alcohol Influenza A & B (PCR) 09/24/19 09/24/19 09/24/19 13:42 14:48 16:28 WBC RBC Hgb Hct MCV MCH MCHC RDW Plt Count Neut % (Auto) Lymph % (Auto) Moody % (Auto) Eos % (Auto) Baso % (Auto) Neut # (Auto) Lymph # (Auto) Moody # (Auto) Eos # (Auto) Baso # (Auto) ABG pH 7.35 ABG pCO2 32.9 L ABG pO2 79 L ABG HCO3 18 L ABG Total CO2 19 L ABG O2 Saturation 95 ABG Base Excess -7.0 L FiO2 0.21 Sodium Potassium Chloride Carbon Dioxide BUN Creatinine Estimated GFR BUN/Creatinine Ratio Glucose Lactate Calcium Total Bilirubin AST ALT Alkaline Phosphatase Total Protein Albumin Globulin Albumin/Globulin Ratio Urine Color Yellow Urine Appearance Clear Urine pH 5.0 Ur Specific [place] 1.020 Urine Protein Negative Urine Glucose (UA) 2+ H Urine Ketones Negative Urine Occult Blood Negative Urine Nitrate Negative Urine Bilirubin Negative Urine Urobilinogen 0.2 Ur Leukocyte Esterase Negative Urine RBC None seen Urine WBC 0-1/hpf Ur Squamous Epith Cells 0-1 /hpf Amorphous Sediment 2+ Urine Bacteria None seen Ur Culture Indicated? Cult not indicated U Morph 300 ng/mL cutoff Ur Oxycodone Screen Urine Methadone Screen Acetaminophen < 10 L Ur Barbiturates Screen U Tricyclic Antidepress Ur Phencyclidine Scrn Ur Amphetamines Screen U Methamphetamines Scrn Ur MDMA Scrn (Ecstasy) U Benzodiazepines Scrn Urine Cocaine Screen U Marijuana (THC) Screen Ethyl Alcohol < 10 Influenza A & B (PCR) 09/24/19 09/24/19 09/24/19 16:37 17:55 20:40 WBC RBC Hgb Hct MCV MCH MCHC RDW Plt Count Neut % (Auto) Lymph % (Auto) Moody % (Auto) Eos % (Auto) Baso % (Auto) Neut # (Auto) Lymph # (Auto) Moody # (Auto) Eos # (Auto) Baso # (Auto) ABG pH ABG pCO2 ABG pO2 ABG HCO3 ABG Total CO2 ABG O2 Saturation ABG Base Excess FiO2 Sodium Potassium Chloride Carbon Dioxide BUN Creatinine Estimated GFR BUN/Creatinine Ratio Glucose Lactate 3.7 H Calcium Total Bilirubin AST ALT Alkaline Phosphatase Total Protein Albumin Globulin Albumin/Globulin Ratio Urine Color Urine Appearance Urine pH Ur Specific [place] Urine Protein Urine Glucose (UA) Urine Ketones Urine Occult Blood Urine Nitrate Urine Bilirubin Urine Urobilinogen Ur Leukocyte Esterase Urine RBC Urine WBC Ur Squamous Epith Cells Amorphous Sediment Urine Bacteria Ur Culture Indicated? U Morph 300 ng/mL cutoff Negative Ur Oxycodone Screen Negative Urine Methadone Screen Negative Acetaminophen Ur Barbiturates Screen Negative U Tricyclic Antidepress Negative Ur Phencyclidine Scrn Negative Ur Amphetamines Screen Negative U Methamphetamines Scrn Negative Ur MDMA Scrn (Ecstasy) Negative U Benzodiazepines Scrn Negative Urine Cocaine Screen Negative U Marijuana (THC) Screen Negative Ethyl Alcohol Influenza A & B (PCR) Negative Discharge Plan Discharge Plan Patient Disposition: [facility] Transfer to: [facility] Discharge Med Rec/Prescriptions Prescriptions: Discontinued (DME) True Brand Glucometer Qty: 1 RF: 0 (DME) insulin syringe-needle U-100 [Advocate Syringes] 0.5 mL 30 gauge x 5/16 syringe See Dose Instructions .ROUTE .MEDSUPPLY Qty: 300 RF: 0 atorvastatin 40 mg tablet 40 mg PO QPM Qty: 90 RF: 3 (DME) True Brand test strips Qty: 100 RF: 1 pantoprazole 40 mg tablet,delayed release (DR/EC) 40 mg PO DAILY RF: 0 insulin lispro [Humalog KwikPen Insulin] 100 unit/mL insulin pen 0 unit SUBCUT DIRECTED RF: 0 scopolamine base [Transderm-Scop] 1 mg over 3 days Patch 3 Day 1 patch topical Q72H Qty: 4 RF: 0 prochlorperazine maleate [Compazine] 10 mg tablet 10 mg PO Q6H PRN (Reason: nausea and vomiting) Qty: 10 RF: 0 lorazepam 1 mg tablet 1 mg PO Q6H PRN (Reason: nausea and vomiting) Qty: 30 RF: 0 sertraline 100 mg tablet 100 mg PO BEDTIME Qty: 30 RF: 2 Lantus Solostar U-100 Insulin 100 unit/mL (3 mL) Insulin Pen 30 unit subcut DAILY Qty: 1 RF: 0 Lantus Solostar U-100 Insulin 100 unit/mL (3 mL) Insulin Pen 25 unit subcut BEDTIME Qty: 1 RF: 0 dexamethasone 1 mg Tablet 1 mg PO DAILY RF: 0 dexamethasone 2 mg Tablet 2 mg PO DAILY RF: 0 Discharge Health Status Multidrug resistant organism: No MDRO Discharge Data Primary Care Provider: Merari Yen VTE Deep Vein Thrombosis/Pulmonary Embolism Present on Admission: No
[2019-09-25] VITALS: O2SAT 96
[2019-09-25 00:03] VITALS: BP 154/109; PULSE 151; RESP 10; O2SAT 96
--- NOTE | 2019-09-25 01:45 | PC.NURSE ---
Pt received from Doreen GAN with Bedside shift report@[phone]. Pt is nonverbal with eyes closed. Pt is resistive only to pupilary checks. Does not respond to voice or follow commands. Pt noted top have dressing to L knee and swelling noted from L knee to L foot. Dorsalis pedis pulse absent with doppler to L foot. Able to obtain L posterior tibial pulse with doppler. Right foot is cool with pulses palpable. Dr Alvarenga here and in process of transferring patient to a higher level of care at [facility]. Pt has had 200 cc urinary output per tejeda catheter since admission and currently has 50 cc in tejeda. IV fluids NS with 20 meq KCL infusing. Pt is in ST with rate 150s. Lungs are diminished and clear. RA sats 95-96%. Dr. Alvarenga called and spoke with daughter, Rhonda Whitley, DPOA. Received verbal consent for transport to [facility] in [place] for higher level of care and potential risks discussed by two nurses witnessing consent. Report phoned to Kennedy GAN at [facility]. Discussed patient's current diagnosis with history of glioblastoma and oncology treatments. Discussed medications and fluids given and insulin coverage for glucose of 313. Discussed physical assessment and ongoing absent pulses and L foot with swelling and cool temperature. Discussed patient now presenting as nonverbal and prior administration of Morphine. 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 Pt does not respond to verbal commands. Dr. Alvarenga present and gave ACLS crew a verbal report for transfer. Patient departed at 0045. Pt's daughter, Rhonda Whitley, called and notified of patient's transfer to [facility] in progress.
== END 2019-09-25 00:45 | disposition short-term general hospital (02) | DRG 134 ==
LOC: ED 17:56 → AC 18:03 → ICU 09-25 00:25
PROVIDERS: Admitting Provider Family Medicine; Emergency Provider Emergency Medicine; PCP Family Medicine; Visit Provider Family Medicine
DX: I26.99 Other pulmonary embolism without acute cor pulmonale (principal); T45.1X5A Adverse effect of antineoplastic and immunosuppressive drugs, initial encounter; G93.41 Metabolic encephalopathy; E86.0 Dehydration; C71.9 Malignant neoplasm of brain, unspecified; R40.2343 Coma scale, best motor response, flexion withdrawal, at hospital admission; R40.2123 Coma scale, eyes open, to pain, at hospital admission; R40.2213 Coma scale, best verbal response, none, at hospital admission; I82.402 Acute embolism and thrombosis of unspecified deep veins of left lower extremity; E11.9 Type 2 diabetes mellitus without complications; Z87.891 Personal history of nicotine dependence; Z79.4 Long term (current) use of insulin; E87.2 Acidosis
CPT/HCPCS: 36415; 36600; 51701; 70450; 71275; 80053; 80305; 80320; 80329; 81001; 82805; 82962; 83605; 85025; 87040; 87502; 93005; 93010; 96360; 96361; 96372; 99223; 99239; 99284; 99285; G0480; J1650; J2270; J3480; Q9967

== ENCOUNTER 2019-10-09 11:42 | Emergency (ER) | payer OTHER, MEDICAID, SELFPAY ==
[2019-09-24 18:59] VITALS: BMI 29.7
[2019-10-09] VITALS (9 sets, daily range): BP systolic 101–145; BP diastolic 80–104; PULSE 111–120; RESP 11–22; TEMP 37.1; O2SAT 96–100
--- NOTE | 2019-10-09 12:07 | DI.RAD.S_ITS ---
PROCEDURE: XR CHEST 1V INDICATIONS: altered mental status TECHNIQUE: One view of the chest was acquired. COMPARISON: [facility], , CHEST 2 VIEW, 12/26/2017, 12:08. FINDINGS: Surgical changes and devices: None. Lungs and pleura: The lung volumes are present without focal pulmonary consolidation evident. No pleural effusions or pneumothorax. Mediastinum: Mediastinal contours appear normal. Heart size is normal. Bones and chest wall: No suspicious bony lesions. Overlying soft tissues appear unremarkable. IMPRESSION: No acute cardiopulmonary process is evident. Dictated by: Kyree Licea M.D. on 10/09/2019 at 11:41 Approved by: Kyree Licea M.D. on 10/09/2019 at 11:42
--- NOTE | 2019-10-09 12:07 | DI.CT.S_ITS ---
PROCEDURE: CT HEAD/BRAIN WO CON INDICATIONS: Alt LOC on thinners TECHNIQUE: Noncontrast 4.5 mm thick angled axial sections acquired from the foramen magnum to the vertex, with coronal and sagittal reformats. For radiation dose reduction, the following was used: automated exposure control, adjustment of mA and/or kV according to patient size. COMPARISON: [facility], MR, MR BRAIN WITH/WITHOUT CONTRAST, 09/19/2019, 12:53. [facility], CT, CT HEAD/BRAIN WO CON, 08/19/2019, 12:57. [facility], CT, CT HEAD/BRAIN WO CON, 02/20/2019, 23:08. Outside Film, MR, MR BRAIN WITH/WITHOUT CONTRAST, 02/21/2019, 14:17. Outside Film, MR, MR BRAIN WITH/WITHOUT CONTRAST, 02/26/2019, 21:04. Outside Film, CT, CT HEAD WITHOUT CONTRAST, 03/14/2019, 13:09. [facility], CT, CT HEAD/BRAIN WO CON, 09/24/2019, 15:59. FINDINGS: Image quality: Excellent. CSF spaces: Basal cisterns are patent. No extra-axial fluid collections. Ventricles are prominent in size, similar in appearance to the prior study. Brain: No acute intracranial hemorrhage or mass effect. Postsurgical changes are redemonstrated status post prior mass resection in the right posterior parietal, posterior temporal, and occipital lobes. The findings are similar to the recent prior studies with hypoattenuation along the surgical bed and in the posterior horn of the corpus callosum redemonstrated extending across midline. Findings are suspicious for residual disease. Confluent periventricular areas of white matter hypoattenuation are also redemonstrated, similar in appearance to the recent prior studies. Skull and face: There postsurgical changes consistent with prior right parietal and temporal craniotomy. No acute fractures. Sinuses: Visualized sinuses demonstrate small sinus retention cysts or mucosal polyps in the left maxillary sinus. The mastoid air cells are clear. IMPRESSION: 1. No acute intracranial hemorrhage or new mass effect. 2. Postsurgical changes redemonstrated consistent were prior right posterior cerebral mass resection. Hypoattenuation along the surgical margins are similar to recent prior studies but suspicious for residual disease. 3. Nonspecific periventricular white matter hypoattenuation is redemonstrated, similar to the recent prior studies. Dictated by: Cabrera Zaman M.D. on 10/09/2019 at 12:39 Approved by: Cabrera Zaman M.D. on 10/09/2019 at 12:49
[2019-10-09 12:18] LABS: Add Manual Diff / Slide Review NO; Basophils Absolute Auto 100 /uL (0-100); Basophils Percent Auto 1.3 % (0-2); Eosinophils Absolute Auto 100 /uL (0-450); Eosinophils Percent Auto 1.5 % (2-4); Hematocrit 40.1 % (36-46); Hemoglobin 13.5 g/dL (12.0-16.0); Lymphocytes Absolute Auto 2500 /uL (1100-4500); Lymphocytes Percent Auto 29.9 % (25-40); Mean Corpuscular HGB Conc 33.6 % (30-36); Mean Corpuscular Hemoglobin 29.2 PG (26-34); Mean Corpuscular Volume 86.9 fL (80-100); Monocytes Absolute Auto 1000 /uL (0-900); Monocytes Percent Auto 11.8 % (3-14); Neutrophils Absolute Auto 4600 /uL (1500-7000); Neutrophils Percent Auto 55.5 % (50-75); Platelet Count 513 X10^3/uL (150-400); Red Blood Cell Count 4.61 X10^6/uL (4.0-5.2); Red Cell Distribution Width 16.4 % (11.6-14.8); White Blood Cell Count 8.4 X10^3/uL (4.5-11.0)
[2019-10-09 12:19] LABS: Prothrombin Time 23.8 SECONDS (10.1-12.7)
[2019-10-09 12:23] LABS: Alanine Aminotransferase 26 IU/L (<35); Albumin 3.8 g/dL (3.5-5.0); Albumin Globulin Ratio 1.1 (1.0-2.8); Alkaline Phosphatase 140 U/L (38-126); Aspartate Aminotransferase 29 IU/L (14-36); Blood Urea Nitrogen 18 mg/dL (7-17); Carbon Dioxide 28 mmol/L (22-32); Chloride 103 mmol/L (98-107); Estimated Glomerular Filt Rate > 60.0 mL/min (>60); Globulin 3.6 g/dL (1.7-4.1); Glucose 289 mg/dL (70-100); HEMOLYSIS < 15 (0-50); Potassium 3.7 mmol/L (3.4-5.1); Sodium 140 mmol/L (137-145); Total Protein 7.4 g/dL (6.3-8.2)
--- NOTE | 2019-10-09 12:34 | PC.NURSE ---
hematuria noted to tejeda bag. Denies urinary symptoms. Patient recently hospitalized for pulmonary embolism at [facility] and started on xeralto.
--- NOTE | 2019-10-09 13:11 | ED_ITS ---
HPI - Weakness General Chief complaint: Weakness Stated complaint: Decreased LOC and blood in urine Time Seen by Provider: 10/09/19 11:49 Source: patient, family and EMS Mode of arrival: EMS History of Present Illness HPI Narrative: Patient is brought to the emergency department by EMS after staff at [facility] noticed hematuria. The patient was just discharged to [facility] from [facility] and has been back at [facility] for the last 2 days. Patient states she is unaware that she was having hematuria. She does have an indwelling Osei catheter, and was recently placed on Xarelto, due to experiencing multiple PEs. Patient denies any abdominal pain. No nausea or vomiting. No fevers. She states that she does not feel any worse than usual. Related Data Home Medications Medication Instructions Recorded Confirmed atorvastatin 40 mg PO QPM 10/09/19 10/09/19 insulin glargine [Basaglar KwikPen 25 unit SUBCUT QPM 10/09/19 10/09/19 U-100 Insulin] insulin glargine [Basaglar KwikPen 30 unit SUBCUT DAILY 10/09/19 10/09/19 U-100 Insulin] insulin lispro 0 unit SUBCUT TID 10/09/19 10/09/19 pantoprazole 40 mg PO DAILY 10/09/19 10/09/19 rivaroxaban [Xarelto] 15 mg PO BID 10/09/19 10/09/19 scopolamine base [Transderm-Scop] 1 patch TRANSDERMAL Q3D 10/09/19 10/09/19 sertraline 100 mg PO DAILY 10/09/19 10/09/19 Previous Rx's Medication Instructions Recorded sulfamethoxazole-trimethoprim 1 tab PO BID #14 tab 10/09/19 [Bactrim] Allergies Allergy/AdvReac Type Severity Reaction Status Date / Time promethazine [From PHENERGAN] Allergy Severe HIVES Verified 09/24/19 13:31 Review of Systems Constitutional Constitutional: Denies chills, Denies fatigue, Denies fever(s), Denies frequent falls, Denies lethargy and Denies weakness Eyes Eyes: Denies change in vision, Denies eye discharge, Denies irritation and Denies loss of vision ENT Ears, Nose, Mouth, and Throat: Denies change in voice, Denies dizziness, Denies neck pain, Denies sore throat and Denies throat swelling Cardiovascular Cardiovascular: Denies chest pain, Denies irregular heart rhythm, Denies lightheadedness, Denies palpitations, Denies dyspnea, Denies dyspnea on exertion and Denies orthopnea Respiratory Respiratory: Denies cough, Denies dyspnea, Denies dyspnea on exertion and Denies wheezing Gastrointestinal Gastrointestinal: Denies abdominal pain, Denies change in bowel habits, Denies diarrhea, Denies nausea and Denies vomiting Genitourinary Genitourinary: Reports hematuria, Denies flank pain, Denies urinary incontinence and Denies urinary urgency Musculoskeletal Musculoskeletal: Denies back pain, Denies muscle weakness, Denies neck pain, Denies numbness and Denies tingling Integumentary/Breasts Skin/Breast: Denies pruritus, Denies erythema, Denies rash and Denies wounds Neurologic Neurologic: Denies behavioral changes, Denies confusion, Denies dizziness, Denies frequent falls, Denies loss of vision, Denies numbness, Denies tingling and Denies weakness Psychiatric Psychiatric: Denies anxiety, Denies behavioral changes, Denies confusion, Denies depression, Denies homicidal ideation and Denies suicidal ideation Endocrine Endocrine: Denies fatigue, Denies flushing and Denies palpitations Hematologic/Lymphatic Hematologic/Lymphatic: Denies easy bruising Allergic/Immunologic Allergic/Immunologic: Denies urticaria, Denies throat swelling and Denies wheezing Patient History Medical History Anxiety disorder (Chronic) Chronic back pain (Chronic) Diabetes (Chronic) Glioblastoma multiforme of parietal lobe (Acute ~02/2019) HTN (hypertension) (Chronic) Hyperlipidemia (Chronic) Obesity (Chronic) Polyneuropathy (05/20/15) Tibial plateau fracture (Resolved) Uncontrolled diabetes mellitus type 2 without complications (06/17/15) Surgical History History of carpal tunnel repair (Resolved 11/06/15) History of craniotomy (Resolved ~02/2019) History of liver biopsy (Resolved 2000) History of tonsillectomy (Resolved 1988) Status post tubal ligation (Resolved 1999) Status post vaginal hysterectomy (Resolved 2004) Family History Father Diabetes mellitus Mother Diabetes mellitus Hypothyroid Grandfather COPD (chronic obstructive pulmonary disease) Grandmother CAD (coronary artery disease) [place] (myocardial infarction) Social History household members: significant other and family Smoking Status: Former smoker alcohol intake: never substance use type: does not use alcohol intake frequency: 0-2 drinks per day Substance Use Type: does not use Exam Initial Vital Signs Initial Vital Signs: Vital Signs Temperature 98.7 F 10/09/19 11:45 Pulse Rate 116 H 10/09/19 11:45 Respiratory Rate 20 10/09/19 11:45 Blood Pressure 145/104 H 10/09/19 11:45 Pulse Oximetry 97 10/09/19 11:45 Const General: cooperative and well developed Nutritional Appearance: well nourished Orientation: alert and awake Other: Patient is able to answer most questions appropriately. HENAL Head: normocephalic and atraumatic Ears: external ears normal Nose: external nose normal and No nasal discharge Face and sinus: face symmetric and No dry mucous membranes Mouth: oral mucosae normal and moist mucous membranes Teeth and gingiva: dentition normal Eyes General: appearance normal, both eyes and all related structures Eyelids: eyelids normal Conjunctivae: conjunctivae normal Sclera: sclerae normal Pupils: PERRL EOM: EOM intact bilaterally Neck Neck: normal visual inspection, trachea midline, No lymphadenopathy, No midline deformity and No JVD Lymphatic: No lymphedema Chest Chest: normal inspection of the chest Resp Effort & Inspection: normal respiratory effort, able to speak in complete sentences, no respiratory distress and no use of accessory muscles Auscultation: clear to auscultation bilaterally, no rales, no rhonchi and no wheezes Cardio Rate: regular rate Rhythm: regular rhythm Heart Sounds: no click, no gallops, no murmurs and no rubs Pulses: normal peripheral pulses GI Inspection: non-distended Palpation: soft, no hepatosplenomegaly, No guarding, No pulsatile mass and No tender Back/Spine/Pelvis Back: No CVA tenderness Cervical Spine: cervical ROM normal and No pain with cervical ROM Thoracic/Lumbar Spine: thoracic and lumbar spine normal to inspection Skin General: no rashes or lesions noted, No jaundice and No petechiae Neuro General: alert, awake and no focal motor deficits Speech: speech normal Extrem General: full ROM, no clubbing, cyanosis or edema, no pedal edema and no calf tenderness Psych Appearance: well kempt Mental Status: mental status grossly normal Attitude: cooperative Thought Content: normal and suicidality Judgment: judgment good Course Course Course Narrative: The patient, overall, was actually much more well appearing than on her last visit 2 weeks before. She was more alert and actually much more easily conversant. Head CT was not significantly changed from previous studies. Her laboratory studies showed a normal H&H and her urinalysis showed signs of infection. I did start the patient on antibiotics for this. I have discussed with the patient and her family that hematuria can occur from the inflammation of cystitis, and that the patient is more going to be more prone to this because of her anticoagulated status. I expect that her hematuria will clear up on its own with antibiotic treatment of the infection. However, she continues to have hematuria after her antibiotic course is done, she will need to follow up with her primary doctor and Neurology to determine what further to do in light of her anticoagulation needs. Patient is agreeable to this plan. We have discussed the usual indications for return. Orders Ordered: Discontinued Medications Trimethoprim/Sulfamethoxazole (Bactrim Ds) 1 tab PO NOW ONE Stop: 10/09/19 17:03 Last Admin: 10/09/19 17:20 Dose: 1 tab Documented by: SHERLY Vital Signs Vital signs: Vital Signs - 8 hr 10/09/19 11:45 10/09/19 12:03 10/09/19 12:31 Temperature 98.7 F Pulse Rate 116 H 119 H 120 H Respiratory Rate 20 12 11 L Blood Pressure 145/104 H Blood Pressure [Left Arm] 141/102 H 133/101 H Pulse Oximetry 97 99 97 MDM - Weakness Medical Records Attestation: I reviewed the patient's medical records. Lab Data Attestation: I reviewed the patient's lab results. Result diagrams: 10/09/19 12:00 10/09/19 12:00 Labs: Lab Results 10/09/19 10/09/19 10/09/19 Range/Units 12:00 12:00 12:00 WBC 8.4 (4.5-11.0) X10^3/uL RBC 4.61 (4.0-5.2) X10^6/uL Hgb 13.5 (12.0-16.0) g/dL Hct 40.1 (36-46) % MCV 86.9 (80-100) fL MCH 29.2 (26-34) PG MCHC 33.6 (30-36) % RDW 16.4 H (11.6-14.8) % Plt Count 513 H (150-400) X10^3/uL Neut % (Auto) 55.5 (50-75) % Lymph % (Auto) 29.9 (25-40) % Griggs % (Auto) 11.8 (3-14) % Eos % (Auto) 1.5 L (2-4) % Baso % (Auto) 1.3 (0-2) % Neut # (Auto) 4600 (1175-0074) /uL Lymph # (Auto) 2500 (2878-0323) /uL Griggs # (Auto) 1000 H (0-900) /uL Eos # (Auto) 100 (0-450) /uL Baso # (Auto) 100 (0-100) /uL PT 23.8 H (10.1-12.7) SECONDS INR 2.0 H (0.9-1.3) Sodium 140 (137-145) mmol/L Potassium 3.7 (3.4-5.1) mmol/L Chloride 103 (98-107) mmol/L Carbon Dioxide 28 (22-32) mmol/L BUN 18 H (7-17) mg/dL Creatinine 0.60 (0.52-1.04) mg/dL Estimated GFR > 60.0 (>60) mL/min BUN/Creatinine Ratio 30.0 H (6-22) Glucose 289 H (70-100) mg/dL Calcium 10.0 (8.4-10.2) mg/dL Total Bilirubin 1.0 (0.2-1.3) mg/dL AST 29 (14-36) IU/L ALT 26 (<35) IU/L Alkaline Phosphatase 140 H (38-126) U/L Total Protein 7.4 (6.3-8.2) g/dL Albumin 3.8 (3.5-5.0) g/dL Globulin 3.6 (1.7-4.1) g/dL Albumin/Globulin Ratio 1.1 (1.0-2.8) Urine Color Urine Appearance Urine pH (4.5-8.0) Ur Specific Brinson (1.000-1.035) Urine Protein (Negative) Urine Glucose (UA) (Negative) g/dL Urine Ketones (NEGATIVE) Urine Occult Blood (Negative) Urine Nitrate (Negative) Urine Bilirubin (NEGATIVE) Urine Urobilinogen (0.2) E.U./dL Ur Leukocyte Esterase (NEGATIVE) Urine RBC (0-5/HPF) Urine WBC (0-5/HPF) Ur Squamous Epith Cells (0-5/HPF) Amorphous Sediment Urine Bacteria (None) Urine Mucus (Negative) Ur Culture Indicated? 10/09/19 Range/Units 13:33 WBC (4.5-11.0) X10^3/uL RBC (4.0-5.2) X10^6/uL Hgb (12.0-16.0) g/dL Hct (36-46) % MCV (80-100) fL MCH (26-34) PG MCHC (30-36) % RDW (11.6-14.8) % Plt Count (150-400) X10^3/uL Neut % (Auto) (50-75) % Lymph % (Auto) (25-40) % Griggs % (Auto) (3-14) % Eos % (Auto) (2-4) % Baso % (Auto) (0-2) % Neut # (Auto) (3091-8271) /uL Lymph # (Auto) (7276-4361) /uL Griggs # (Auto) (0-900) /uL Eos # (Auto) (0-450) /uL Baso # (Auto) (0-100) /uL PT (10.1-12.7) SECONDS INR (0.9-1.3) Sodium (137-145) mmol/L Potassium (3.4-5.1) mmol/L Chloride (98-107) mmol/L Carbon Dioxide (22-32) mmol/L BUN (7-17) mg/dL Creatinine (0.52-1.04) mg/dL Estimated GFR (>60) mL/min BUN/Creatinine Ratio (6-22) Glucose (70-100) mg/dL Calcium (8.4-10.2) mg/dL Total Bilirubin (0.2-1.3) mg/dL AST (14-36) IU/L ALT (<35) IU/L Alkaline Phosphatase (38-126) U/L Total Protein (6.3-8.2) g/dL Albumin (3.5-5.0) g/dL Globulin (1.7-4.1) g/dL Albumin/Globulin Ratio (1.0-2.8) Urine Color Red Urine Appearance Other Urine pH 6.5 (4.5-8.0) Ur Specific Brinson 1.025 (1.000-1.035) Urine Protein 3+ H (Negative) Urine Glucose (UA) Trace H (Negative) g/dL Urine Ketones 1+ H (NEGATIVE) Urine Occult Blood 3+ H (Negative) Urine Nitrate Positive (Negative) Urine Bilirubin Negative (NEGATIVE) Urine Urobilinogen 2.0 H (0.2) E.U./dL Ur Leukocyte Esterase Trace H (NEGATIVE) Urine RBC >100/hpf H (0-5/HPF) Urine WBC 30-100/hpf H (0-5/HPF) Ur Squamous Epith Cells 0-1 /hpf (0-5/HPF) Amorphous Sediment 2+ Urine Bacteria Many (>30) H (None) Urine Mucus 2+ H (Negative) Ur Culture Indicated? Specimen cultured Imaging Data Chest x-ray: Radiologist's impression: PROCEDURE: XR CHEST 1V INDICATIONS: altered mental status TECHNIQUE: One view of the chest was acquired. COMPARISON: [facility], CHEST 2 VIEW, 12/26/2017, 12:08. FINDINGS: Surgical changes and devices: None. Lungs and pleura: The lung volumes are present without focal pulmonary consolidation evident. No pleural effusions or pneumothorax. Mediastinum: Mediastinal contours appear normal. Heart size is normal. Bones and chest wall: No suspicious bony lesions. Overlying soft tissues appear unremarkable. IMPRESSION: No acute cardiopulmonary process is evident. Dictated by: Kyree Licea M.D. on 10/09/2019 at 11:41 Approved by: Kyree Licea M.D. on 10/09/2019 at 11:42 CT scan - head: Radiologist's impression: PROCEDURE: CT HEAD/BRAIN WO CON INDICATIONS: Alt LOC on thinners TECHNIQUE: Noncontrast 4.5 mm thick angled axial sections acquired from the foramen magnum to the vertex, with coronal and sagittal reformats. For radiation dose reduction, the following was used: automated exposure control, adjustment of mA and/or kV according to patient size. COMPARISON: [facility], MR, MR BRAIN WITH/WITHOUT CONTRAST, 09/19/2019, 12:53. [facility], CT, CT HEAD/BRAIN WO CON, 08/19/2019, 12:57. [facility], CT, CT HEAD/BRAIN WO CON, 02/20/2019, 23:08. Outside Film, MR, MR BRAIN WITH/WITHOUT CONTRAST, 02/21/2019, 14:17. Outside Film, MR, MR BRAIN WITH/WITHOUT CONTRAST, 02/26/2019, 21:04. Outside Film, CT, CT HEAD WITHOUT CONTRAST, 03/14/2019, 13:09. [facility], CT, CT HEAD/BRAIN WO CON, 09/24/2019, 15:59. FINDINGS: Image quality: Excellent. CSF spaces: Basal cisterns are patent. No extra-axial fluid collections. Ventricles are prominent in size, similar in appearance to the prior study. Brain: No acute intracranial hemorrhage or mass effect. Postsurgical changes are redemonstrated status post prior mass resection in the right posterior parietal, posterior temporal, and occipital lobes. The findings are similar to the recent prior studies with hypoattenuation along the surgical bed and in the posterior horn of the corpus callosum redemonstrated extending across midline. Findings are suspicious for residual disease. Confluent periventricular areas of white matter hypoattenuation are also redemonstrated, similar in appearance to the recent prior studies. Skull and face: There postsurgical changes consistent with prior right parietal and temporal craniotomy. No acute fractures. Sinuses: Visualized sinuses demonstrate small sinus retention cysts or mucosal polyps in the left maxillary sinus. The mastoid air cells are clear. IMPRESSION: 1. No acute intracranial hemorrhage or new mass effect. 2. Postsurgical changes redemonstrated consistent were prior right posterior cerebral mass resection. Hypoattenuation along the surgical margins are similar to recent prior studies but suspicious for residual disease. 3. Nonspecific periventricular white matter hypoattenuation is redemonstrated, similar to the recent prior studies. Dictated by: Cabrera Zaman M.D. on 10/09/2019 at 12:39 Approved by: Cabrera Zaman M.D. on 10/09/2019 at 12:49 Discharge Plan Departure Patient Disposition: Home Clinical Impression: Acute hemorrhagic cystitis Discharge Date/Time: 10/09/19 19:51 Instructions: DI for Urinary Tract Infection (UTI) Activity Restrictions/Additional Instructions: Your labs today looks fairly good. Your blood counts are all normal, and there is no evidence of a dangerous amount of blood loss. Urinalysis is positive for infection, and this is most likely the reason that your bleeding. Your additionally more prone to bleed because of anticoagulants that you are on. However, it is very important that you stand these blood thinners to prevent fu rther clots from going to your lungs. At this point, it is better to have some blood in the urine with normal blood work then to stop an important medication that is preventing a life-threatening condition. Most likely, once the antibiotics treat your urinary tract infection, the bleeding in your urine will stop. Prescriptions: New sulfamethoxazole-trimethoprim [Bactrim] 400-80 mg tablet 1 tab PO BID Qty: 14 RF: 0 No Action atorvastatin 40 mg tablet 40 mg PO QPM RF: 0 pantoprazole 40 mg tablet,delayed release (DR/EC) 40 mg PO DAILY RF: 0 insulin lispro 100 unit/mL insulin pen 0 unit SUBCUT TID RF: 0 Basaglar KwikPen U-100 Insulin 100 unit/mL (3 mL) insulin pen 25 unit SUBCUT QPM RF: 0 Basaglar KwikPen U-100 Insulin 100 unit/mL (3 mL) insulin pen 30 unit SUBCUT DAILY RF: 0 scopolamine base [Transderm-Scop] 1 mg over 3 days patch 3 day 1 patch transdermal Q3D RF: 0 sertraline 100 mg tablet 100 mg PO DAILY RF: 0 Xarelto 15 mg tablet 15 mg PO BID RF: 0 Referrals: Merari Yen DO [Primary Care Provider] -
[2019-10-09 13:46] LABS: Bilirubin Urine UA NEGATIVE (NEGATIVE); Color Urine UA RED; Glucose Urine UA TRACE g/dL (Negative); Ketones Urine UA 1+ (NEGATIVE); Leukocyte Esterase Urine UA TRACE (NEGATIVE); Nitrite Urine UA POSITIVE (Negative); Occult Blood Urine UA 3+ (Negative); Protein Urine UA 3+ (Negative); Specific Gravity Urine UA 1.025 (1.000-1.035)
[2019-10-09 14:01] LABS: Appearance Urine UA OTHER; pH Urine UA 6.5 (4.5-8.0)
[2019-10-09 14:02] LABS: Amorphous Sediment Urine 2+; Bacteria Urine Many (>30); RBC Urine >100/HPF (0-5/HPF); Squamous Epithelial Cell Urine 0-1 /HPF (0-5/HPF); WBC Urine 30-100/HPF (0-5/HPF)
[2019-10-09 14:03] LABS: Culture Indicated Urine Specimen Cultured; Mucus Urine 2+ (Negative)
--- NOTE | 2019-10-09 14:25 | PC.NURSE ---
Assisted ELVIA Peña with repositioning of pt. Pt denies any needs at this time.
[2019-10-09] MEDS: TRIMETH/SULFA 160/800 (DS) TABLET 1 TAB PO (17:20)
--- NOTE | 2019-10-09 17:32 | PC.NURSE ---
Patient states she takes pills at home with no difficulty. In attempt to give patient her antibiotic lynn took sip of water, tolerated well. Placed pill in her mouth and pocketed. Able to retrieve.
--- NOTE | 2019-10-09 17:44 | PC.NURSE ---
Report called to Joyce GAN at [facility]. States she will occasionally crush pills for patient and that she tolerates that fine.
--- NOTE | 2019-10-09 18:00 | PC.NURSE ---
Pill crushed and mixed with liquid patient tolerated well
== END 2019-10-09 19:51 | disposition home or self-care (01) ==
PROVIDERS: Emergency Provider Emergency Medicine; PCP Family Medicine
DX: N30.01 Acute cystitis with hematuria (principal); R41.82 Altered mental status, unspecified; E11.9 Type 2 diabetes mellitus without complications; Z79.4 Long term (current) use of insulin; I10 Essential (primary) hypertension; E78.2 Mixed hyperlipidemia; E66.9 Obesity, unspecified
CPT/HCPCS: 36415; 70450; 71045; 80053; 81001; 85025; 85610; 87077; 87086; 87186; 93005; 99284; 99285